=== PATIENT | female | born 1950 | race Caucasian/White ===

== ENCOUNTER → 2019-02-16 | Outpatient (REF) ==
[2019-02-16 13:59] LABS: ALT/SGPT 23 U/L (12-78); BILIRUBIN,TOTAL 0.2 MG/DL (0.2-1.0); BLOOD UREA NITROGEN 11 MG/DL (7-18); CALCIUM LEVEL 9.6 MG/DL (8.8-10.2); CARBON DIOXIDE LEVEL 28 MEQ/L (21-32); CHLORIDE LEVEL 106 MEQ/L (98-107); CREATININE FOR GFR 0.75 MG/DL (0.55-1.30); GLOMERULAR FILTRATION RATE > 60.0 (>45); GLUCOSE, FASTING 97 MG/DL (70-100); POTASSIUM SERUM 4.4 MEQ/L (3.5-5.1); SODIUM LEVEL 141 MEQ/L (136-145); TOTAL PROTEIN 6.2 GM/DL (6.4-8.2)
== END ==
LOC: M LAB REF 05:14
DX: Z00.00 Encounter for general adult medical examination without abnormal findings (principal)

== ENCOUNTER 2019-04-25 14:58 | Inpatient (IN) | payer BC ==
[~2019-04-25] VITALS: Ht 154.9 cm; Wt 64.0 kg
[2019-04-25] MEDS ORDERED: VANC125C3 PO (15:06)
[2019-04-25] MEDS ORDERED: FURO20TA2 PO (15:06)
[2019-04-25] MEDS ORDERED: DONE10TA90 (15:06)
[2019-04-25] MEDS ORDERED: PANT40TA3 PO (15:06)
[2019-04-25] MEDS ORDERED: FLUO40CA PO (15:06)
[2019-04-25] MEDS ORDERED: CLON0.5T8 PO (15:06)
[2019-04-25] MEDS ORDERED: CLOP75TA2 PO (15:06)
[2019-04-25 16:34] LABS: BASO % 0.6 % (0.0-1.0); EOS % 0.5 % (0.0-3.0); HEMATOCRIT 39.9 % (36.0-47.0); HEMOGLOBIN 13.1 g/dl (12.0-15.5); LYMPH # 1.4 10^3/uL (1.5-4.5); LYMPH % 21.6 % (24.0-44.0); MEAN CORPUSCULAR HEMOGLOBIN 29.2 pg (27.0-33.0); MEAN CORPUSCULAR HGB CONC 32.8 g/dl (32.0-36.5); MEAN CORPUSCULAR VOLUME 88.9 fl (80.0-96.0); MONO # 0.6 10^3/uL (0.0-0.8); MONO % 8.4 % (0.0-5.0); NEUTROPHILS # 4.5 10^3/uL (1.8-7.7); NEUTROPHILS % 68.7 % (36.0-66.0); PLATELET COUNT, AUTOMATED 248 10^3/uL (150-450); RED BLOOD COUNT 4.49 10^6/uL (4.00-5.40); WHITE BLOOD COUNT 6.5 10^3/uL (4.0-10.0)
[2019-04-25 17:04] LABS: ALBUMIN 3.5 GM/DL (3.2-5.2); ALT/SGPT 23 U/L (12-78); BILIRUBIN,DIRECT 0.2 MG/DL (0.0-0.2); BILIRUBIN,TOTAL 0.6 MG/DL (0.2-1.0); BLOOD UREA NITROGEN 7 MG/DL (7-18); CALCIUM LEVEL 9.8 MG/DL (8.8-10.2); CARBON DIOXIDE LEVEL 28 MEQ/L (21-32); CHLORIDE LEVEL 104 MEQ/L (98-107); CREATININE FOR GFR 0.82 MG/DL (0.55-1.30); GLOMERULAR FILTRATION RATE > 60.0 (>45); GLUCOSE, FASTING 89 MG/DL (70-100); LIPASE 84 U/L (73-393); POTASSIUM SERUM 3.5 MEQ/L (3.5-5.1); SODIUM LEVEL 141 MEQ/L (136-145)
[2019-04-25] MEDS ORDERED: ONDANSETRON 4MG/2ML VIAL (J2405) As Ordered ONE (17:10)
[2019-04-25] MEDS ORDERED: NS 1,000 ML IV ONE (17:15)
[2019-04-25] MEDS ORDERED: ONDANSETRON 4MG/2ML VIAL (J2405) IV ONE ×2 (17:15→22:30)
[2019-04-25] MEDS ORDERED: ACET1TAB55 PO (17:44)
--- NOTE | 2019-04-25 18:08 | HPEPDOC ---
General Date of Admission Apr 25, 2019 at 17:42 Date of Service: Apr 25, 2019 Chief Complaint The patient is a 69-year-old female Who presented to the emergency room with complaints of diarrhea. History of Present Illness Patient is a 69-year-old female with a PMHx of CAD s/p stent x2 (Hx of NH), HTN, Hx of Pericarditis (03/2018), DLP and history of recurrent C. difficile colitis who presented to the emergency room with diarrhea. Patient has reported that she had an episode of diverticulitis and was placed on Ciprofloxacin and Flagy. Upon starting these antibiotics she began to develop diarrhea. Testing had revealed that this was C. difficile colitis. Patient was placed on vancomycin, but failed to improve. She was subsequently referred to infectious disease and started on Fidaxomycin. Patient failed 2 courses. 2 weeks ago patient was continued to experience diarrhea and was tested for C. difficile colitis at [facility]. . She had subsequently follow-up with her primary care provider 2 days ago and again was noted to have positive C. difficile colitis. . She was started again back on vancomycin. Patient has presented to the emergency room with failure to improve on vancomycin. Patient does report abdominal cramping and burning sensation in the upper portion of her abdomen. She denies any vomiting but does report nausea. Patient denies any discomfort with urination. She denies any chest pain, shortness of breath, cough or palpitations. Patient does report chills but denies any fevers. Patient does report a very poor appetite and has reported a weight loss of 15 pounds over the last 2 weeks. Home Medications Scheduled Clonazepam (Clonazepam) 0.5 Mg Tablet, 0.5 MG PO QHS, (Reported) Clopidogrel Bisulfate (Clopidogrel) 75 Mg Tablet, 75 MG PO DAILY, (Reported) Fluoxetine Hcl (Fluoxetine HCl) 40 Mg Capsule, 40 MG PO DAILY, (Reported) Furosemide (Furosemide) 20 Mg Tablet, 20 MG PO 3XW, (Reported) MON/MON/FRI Pantoprazole Sodium (Pantoprazole Sodium) 40 Mg Tablet.dr, 40 MG PO DAILY, (Reported) Vancomycin Hcl (Vancomycin HCl) 125 Mg Capsule, 125 MG PO QID, (Reported) FOR 10 DAY COURSE, STARTED 04/23 Scheduled PRN Acetaminophen (Acetaminophen) 325 Mg Tablet, 650 MG PO Q4H PRN for PAIN, (Reported) Allergies Coded Allergies: Penicillins (Verified Allergy, Severe, ANAPHYLAXIS, 04/25/19) Iodinated Contrast- Oral and IV Dye (Verified Allergy, Unknown, 04/25/19) Shrimp (Verified Allergy, Unknown, 04/25/19) Past Medical History Medical History CAD s/p stent x2 (Hx of NH), HTN, Hx of Pericarditis (03/2018), DLP and history of recurrent C. difficile colitis Surgical History Right ulnar release Right carpal tunnel release Right hand trigger finger release Family History - Mother and father with history of heart problems Social History - Denies the use of alcohol or illicit drugs; patient quit smoking in 1999 - Denies recent travel or sick contacts - Lives with in [place] - Occupation; homemaker Review of Systems Other systems 10 point review of systems complete, all negative otherwise stated in HPI Vital Signs - Vitals: BP174/83, HR 75, RR 20, Sat 96%RA, Temp 98.4F - General: Lying in bed, No acute distress, Speaking in full sentences, AAOx3 - HEENT: NC, AT, PERRLA, EOMI - CVS: RRR, +S1S2, - Murmurs / rubs / gallops - Lungs: Fair air entry bilaterally, No appreciable wheezing / rales / rhonchi - Abdomen: Soft, Non-distended, epigastric tenderness noted, diffuse lower quadrant tenderness noted - Extremities: No lower extremity edema, No calf tenderness - Neuro: No focal motor or sensory deficit - Skin: No visible rashes Laboratory Data Labs 24H Laboratory Tests 2 04/25/19 16:07: Immature Granulocyte % (Auto) 0.2, White Blood Count 6.5, Red Blood Count 4.49, Hemoglobin 13.1, Hematocrit 39.9, Mean Corpuscular Volume 88.9, Mean Corpuscular Hemoglobin 29.2, Mean Corpuscular Hemoglobin Concent 32.8, Red Cell Distribution Width 14.5, Platelet Count 248, Neutrophils (%) (Auto) 68.7H, Lymphocytes (%) (Auto) 21.6L, Monocytes (%) (Auto) 8.4H, Eosinophils (%) (Auto) 0.5, Basophils (%) (Auto) 0.6, Neutrophils # (Auto) 4.5, Lymphocytes # (Auto) 1.4L, Monocytes # (Auto) 0.6, Eosinophils # (Auto) 0.0, Basophils # (Auto) 0.0, Nucleated Red Blood Cells % (auto) 0.0, Anion Gap 9, Glomerular Filtration Rate > 60.0, Calcium Level 9.8, Aspartate Amino Transf (AST/SGOT) 14, Alanine Aminotransfe rase (ALT/SGPT) 23, Alkaline Phosphatase 63, Total Bilirubin 0.6, Direct Bilirubin 0.2, Total Protein 8.0, Albumin 3.5, Albumin/Globulin Ratio 0.78L, Lipase 84 04/25/19 16:21: Urine Color EDWIN, Urine Appearance TURBIDH, Urine pH 7.0, Urine Specific Beatrice 1.016, Urine Protein NEGATIVE, Urine Glucose (UA) NEGATIVE, Urine Ketones TRACEH, Urine Blood NEGATIVE, Urine Nitrite NEGATIVE, Urine Bilirubin NEGATIVE, Urine Urobilinogen 0.2, Urine Leukocyte Esterase NEGATIVE, Urine WBC (Auto) 3, Urine RBC (Auto) 2, Urine Hyaline Casts (Auto) 5, Urine Bacteria (Auto) NEGATIVE, Urine Squamous Epithelial Cells 1, Urine Amorphous Sediment SMALLH, Urine Mucus (Auto) SMALL, Urine Sperm (Auto) CBC/BMP Laboratory Tests 04/25/19 16:07 Red Blood Count 4.49, Mean Corpuscular Volume 88.9, Mean Corpuscular Hemoglobin 29.2, Mean Corpuscular Hemoglobin Concent 32.8, Red Cell Distribution Width 14.5, Neutrophils (%) (Auto) 68.7 H, Lymphocytes (%) (Auto) 21.6 L, Monocytes (%) (Auto) 8.4 H, Eosinophils (%) (Auto) 0.5, Basophils (%) (Auto) 0.6, Neutrophils # (Auto) 4.5, Lymphocytes # (Auto) 1.4 L, Monocytes # (Auto) 0.6, Eosinophils # (Auto) 0.0, Basophils # (Auto) 0.0 Plan / VTE VTE Prophylaxis Ordered?: Yes Plan Plan Recurrent diarrhea - likely 2/2 C. difficile colitis - Patient has a history of recurrent C. difficile colitis - Has failed multiple outpatient medications; currently on vancomycin and has failed to improve - Patient had a stool study which was positive for C. difficile 2 weeks ago - Will repeat stool analysis - Will discontinue vancomycin and start Dificid - Well continue with symptomatic control with Tylenol and Bentyl - Case is been discussed with gastroenterology, Dr. Hilliard - plan for likely stool transplant CAD s/p stent x2 - Hx of NH - c/w Plavix HTN - BP moderately elevated - c/w Hx of Pericarditis - Last episode was 03/2018 DLP - Currently not on any medications Anxiety - c/w Clonazepam / Fluoxetine GERD - Will start Protonix IV DVT prophylaxis - Will start Heparin MICHELLE MATTA MD Apr 25, 2019 18:07
[2019-04-25] MEDS: D5W/0.45% SODIUM CHLORIDE 1,000 ML IV SCH (21:23)
[2019-04-25 22:15] VITALS: BP 137/69
[2019-04-25] MEDS: ACETAMINOPHEN 325 MG TAB PO PRN (22:38)
[2019-04-25] MEDS: clonazePAM 0.5 MG TAB PO SCH (22:39)
[2019-04-25] MEDS: HEPARIN SOD (PORCINE) 5000 UNITS/ML VIAL SC SCH (22:40)
[2019-04-25] MEDS: FIDAXOMICIN 200 MG TAB (DIFICID) PO SCH (23:13)
[2019-04-26 05:28] LABS: BASO # 0.1 10^3/uL (0.0-0.2); EOS # 0.1 10^3/uL (0.0-0.50); EOS % 1.5 % (0.0-3.0); HEMATOCRIT 35.5 % (36.0-47.0); HEMOGLOBIN 11.4 g/dl (12.0-15.5); LYMPH # 1.5 10^3/uL (1.5-4.5); LYMPH % 31.4 % (24.0-44.0); MEAN CORPUSCULAR HEMOGLOBIN 29.7 pg (27.0-33.0); MEAN CORPUSCULAR HGB CONC 32.1 g/dl (32.0-36.5); MEAN CORPUSCULAR VOLUME 92.4 fl (80.0-96.0); MONO # 0.5 10^3/uL (0.0-0.8); MONO % 9.4 % (0.0-5.0); NEUTROPHILS # 2.7 10^3/uL (1.8-7.7); NEUTROPHILS % 56.3 % (36.0-66.0); PLATELET COUNT, AUTOMATED 210 10^3/uL (150-450); RED BLOOD COUNT 3.84 10^6/uL (4.00-5.40); WHITE BLOOD COUNT 4.8 10^3/uL (4.0-10.0)
[2019-04-26] MEDS: HEPARIN SOD (PORCINE) 5000 UNITS/ML VIAL SC SCH ×3 (05:42→20:38)
[2019-04-26 05:46] LABS: BLOOD UREA NITROGEN 5 MG/DL (7-18); CALCIUM LEVEL 8.8 MG/DL (8.8-10.2); CARBON DIOXIDE LEVEL 26 MEQ/L (21-32); CHLORIDE LEVEL 110 MEQ/L (98-107); CREATININE FOR GFR 0.74 MG/DL (0.55-1.30); GLOMERULAR FILTRATION RATE > 60.0 (>45); GLUCOSE, FASTING 111 MG/DL (70-100); MAGNESIUM LEVEL 2.1 MG/DL (1.8-2.4); POTASSIUM SERUM 3.5 MEQ/L (3.5-5.1); SODIUM LEVEL 143 MEQ/L (136-145)
[2019-04-26 06:00] VITALS: BP 132/71
[2019-04-26] MEDS: PANTOPRAZOLE 40MG INJ (PROTONIX) (C9113) IV SCH (08:17)
[2019-04-26] MEDS: FIDAXOMICIN 200 MG TAB (DIFICID) PO SCH ×2 (08:17→20:37)
[2019-04-26] MEDS: CLOPIDOGREL 75 MG TAB PO SCH (08:17)
[2019-04-26] MEDS: FLUoxetine 20 MG CAP PO SCH (08:17)
[2019-04-26] MEDS: D5W/0.45% SODIUM CHLORIDE 1,000 ML IV SCH ×2 (08:17→18:45)
[2019-04-26] MEDS: ONDANSETRON 4MG/2ML VIAL (J2405) IV PRN ×2 (08:59→20:38)
[2019-04-26] MEDS: DICYCLOMINE 10 MG CAP PO PRN ×2 (12:07→20:37)
[2019-04-26 14:00] VITALS: BP 159/78
--- NOTE | 2019-04-26 14:47 | IPNPDOC ---
Date Seen The patient was seen on 04/26/19. Progress Note SUBJECTIVE: Patient is a 69-year-old female with a past medical history of recurrent diarrhea who presented to the emergency room with complaints of diarrhea. She was seen and examined this morning lying comfortably in the bed does not appear in acute distress. She states that she continues to have watery diarrhea 2 episodes since waking up this morning. She notes that she does not feel comfortable and would like to know if she can have some Bentyl for her abdominal cramps. Continues to be nothing by mouth status and he has yet to be evaluated by Dr. Handley for stool transplant. She has no other complaints at this time. She denies fevers chills. She admits to abdominal cramps, nausea and diarrhea. OBJECTIVE PHYSICAL EXAMINATION: VITAL SIGNS: Please see below. GENERAL: Pleasant 69-year-old female laying comfortably on her left side, appropriate answering questions and in no acute distress. HEENT: Atraumatic normocephalic pupils equal round and reactive extraocular movements are intact, mucous membranes are moist no carotid bruits appreciated CARDIOVASCULAR: Normal S1-S2 sound with a normal S2 splitting with inspiration, Soft 1/6 systolic murmur at the second loudest on the left intercostal space nonradiating RESPIRATORY: Positive bilaterally no audible wheezing, rhonchi, Rales ABDOMINAL: Positive bowel sounds in all 4 quadrants miles tenderness with deep palpation of the lower abdomen. EXTREMITIES: No lower extremity edema NEUROLOGICAL: No focal deficits, Alert and oriented 3. PSYCHOLOGICAL: Appropriate LABORATORY DATA, IMAGING STUDIES, MICROBIOLOGY: Please see below. DVT prophylaxis ordered?:Yes Heparin ASSESSMENT AND PLAN: This is a 69-year-old female Who presented to the emergency room with complaints of diarrhea. PROBLEMS: Recurrent diarrhea - likely 2/2 C. difficile colitis -history of recurrent C. difficile colitis -failed multiple outpatient medications; currently on vancomycin and has failed to improve -stool study 2 weeks prior + for C. difficile -GI panel pending -c/w Dificid and symptomatic control with Tylenol, Bentyl and Zofran -GI, Dr. Hilliard -consulted - plan for stool transplant CAD s/p stent x2 - Hx of [place] - c/w Plavix HTN -Stable -continue to hold home frusemide because the patient continues to have watery area will monitor blood pressure if needed can consider restarting it Hx of Pericarditis - Last episode was 03/2018 DLP - Currently not on any medications Anxiety - c/w Clonazepam & Fluoxetine GERD - c/w Protonix IV DVT prophylaxis - c/w Heparin . VS, I&O, 24H, [facility] Vital Signs/I&O Vital Signs Date Time Temp Pulse Resp B/P (MAP) Pulse Ox O2 Delivery O2 Flow Rate FiO2 04/26/19 06:00 97.0 61 15 132/71 (91) 98 04/25/19 21:46 Room Air I&O- Last 24 Hours up to 6 AM 04/26/19 06:00 Intake Total 850 ml Output Total 300 ml Balance 550 ml Laboratory Data 24H LABS Laboratory Tests 2 04/25/19 16:07: Immature Granulocyte % (Auto) 0.2, White Blood Count 6.5, Red Blood Count 4.49, Hemoglobin 13.1, Hematocrit 39.9, Mean Corpuscular Volume 88.9, Mean Corpuscular Hemoglobin 29.2, Mean Corpuscular Hemoglobin Concent 32.8, Red Cell Distribution Width 14.5, Platelet Count 248, Neutrophils (%) (Auto) 68.7H, Lymphocytes (%) (Auto) 21.6L, Monocytes (%) (Auto) 8.4H, Eosinophils (%) (Auto) 0.5, Basophils (%) (Auto) 0.6, Neutrophils # (Auto) 4.5, Lymphocytes # (Auto) 1.4L, Monocytes # (Auto) 0.6, Eosinophils # (Auto) 0.0, Basophils # (Auto) 0.0, Nucleated Red Blood Cells % (auto) 0.0, Anion Gap 9, Glomerular Filtration Rate > 60.0, Calcium Level 9.8, Aspartate Amino Transf (AST/SGOT) 14, Alanine Aminotransferase (ALT/SGPT) 23, Alkaline Phosphatase 63, Total Bilirubin 0.6, Direct Bilirubin 0.2, Total Protein 8.0, Albumin 3.5, Albumin/Globulin Ratio 0.78L, Lipase 84 04/25/19 16:21: Urine Color EDWIN, Urine Appearance TURBIDH, Urine pH 7.0, Urine Specific Bullock 1.016, Urine Protein NEGATIVE, Urine Glucose (UA) NEGATIVE, Urine Ketones TRACEH, Urine Blood NEGATIVE, Urine Nitrite NEGATIVE, Urine Bilirubin NEGATIVE, Urine Urobilinogen 0.2, Urine Leukocyte Esterase NEGATIVE, Urine WBC (Auto) 3, Urine RBC (Auto) 2, Urine Hyaline Casts (Auto) 5, Urine Bacteria (Auto) NEGATIVE, Urine Squamous Epithelial Cells 1, Urine Amorphous Sediment SMALLH, Urine Mucus (Auto) SMALL, Urine Sperm (Auto) , Lactic Acid Level 1.0 04/26/19 04:49: Immature Granulocyte % (Auto) 0.4, White Blood Count 4.8, Red Blood Count 3.84L, Hemoglobin 11.4L, Hematocrit 35.5L, Mean Corpuscular Volume 92.4, Mean Corpuscular Hemoglobin 29.7, Mean Corpuscular Hemoglobin Concent 32.1, Red Cell Distribution Width 14.6H, Platelet Count 210, Neutrophils (%) (Auto) 56.3, Lymphocytes (%) (Auto) 31.4, Monocytes (%) (Auto) 9.4H, Eosinophils (%) (Auto) 1.5, Basophils (%) (Auto) 1.0, Neutrophils # (Auto) 2.7, Lymphocytes # (Auto) 1.5, Monocytes # (Auto) 0.5, Eosinophils # (Auto) 0.1, Basophils # (Auto) 0.1, Nucleated Red Blood Cells % (auto) 0.0, Anion Gap 7L, Glomerular Filtration Rate > 60.0, Calcium Level 8.8, Blood Urea Nitrogen 5L, Creatinine 0.74, Sodium Level 143, Potassium Level 3.5, Chloride Level 110H, Carbon Dioxide Level 26, Magnesium Level 2.1 CBC/BMP Laboratory Tests 04/25/19 16:07 Red Blood Count 4.49, Mean Corpuscular Volume 88.9, Mean Corpuscular Hemoglobin 29.2, Mean Corpuscular Hemoglobin Concent 32.8, Red Cell Distribution Width 14.5, Neutrophils (%) (Auto) 68.7 H, Lymphocytes (%) (Auto) 21.6 L, Monocytes (%) (Auto) 8.4 H, Eosinophils (%) (Auto) 0.5, Basophils (%) (Auto) 0.6, Neutrophils # (Auto) 4.5, Lymphocytes # (Auto) 1.4 L, Monocytes # (Auto) 0.6, Eosinophils # (Auto) 0.0, Basophils # (Auto) 0.0 04/26/19 04:49 Red Blood Count 3.84 L, Mean Corpuscular Volume 92.4, Mean Corpuscular Hemoglobin 29.7, Mean Corpuscular Hemoglobin Concent 32.1, Red Cell Distribution Width 14.6 H, Neutrophils (%) (Auto) 56.3, Lymphocytes (%) (Auto) 31.4, Monocytes (%) (Auto) 9.4 H, Eosinophils (%) (Auto) 1.5, Basophils (%) (Auto) 1.0, Neutrophils # (Auto) 2.7, Lymphocytes # (Auto) 1.5, Monocytes # (Auto) 0.5, Eosinophils # (Auto) 0.1, Basophils # (Auto) 0.1, Calcium Level 8.8 GME ATTESTATION GME ATTESTATION My faculty preceptor for this patient encounter was physically present during the encounter and was fully available. All aspects of the patient interview, examination, medical decision making process, and medical care plan development were reviewed and approved by the faculty preceptor. The faculty preceptor is aware and concurs with the plan as stated in the body of this note and will attest to such by his/her cosignature. ATTENDING NOTE I, Carmine Alvarez, have independently examined this patient and performed my own physical exam, as well as reviewed the documentation and edited where necessary. I have discussed in detail with the resident / student the findings and plan of treatment as documented by the resident / student and edited their note. I agree with their findings and treatment plan and have edited their documentation. I will continue to follow the patient during this hospital stay. CANDACE MEI DO Apr 26, 2019 14:47 CARMINE ALVAREZ MD Apr 26, 2019 15:00
[2019-04-26] MEDS: clonazePAM 0.5 MG TAB PO SCH (20:37)
[2019-04-26 22:00] VITALS: BP 140/64
[2019-04-27 06:00] VITALS: BP 153/72
[2019-04-27] MEDS: ONDANSETRON 4MG/2ML VIAL (J2405) IV PRN ×2 (06:30→20:51)
[2019-04-27] MEDS: DICYCLOMINE 10 MG CAP PO PRN ×2 (06:30→20:51)
[2019-04-27] MEDS: HEPARIN SOD (PORCINE) 5000 UNITS/ML VIAL SC SCH ×3 (06:30→20:51)
[2019-04-27 06:52] LABS: BASO # 0.1 10^3/uL (0.0-0.2); BASO % 1.1 % (0.0-1.0); EOS # 0.1 10^3/uL (0.0-0.50); EOS % 1.3 % (0.0-3.0); HEMATOCRIT 34.7 % (36.0-47.0); HEMOGLOBIN 11.2 g/dl (12.0-15.5); LYMPH # 1.3 10^3/uL (1.5-4.5); LYMPH % 24.3 % (24.0-44.0); MEAN CORPUSCULAR HEMOGLOBIN 29.5 pg (27.0-33.0); MEAN CORPUSCULAR HGB CONC 32.3 g/dl (32.0-36.5); MEAN CORPUSCULAR VOLUME 91.3 fl (80.0-96.0); MONO # 0.4 10^3/uL (0.0-0.8); MONO % 7.6 % (0.0-5.0); NEUTROPHILS # 3.5 10^3/uL (1.8-7.7); NEUTROPHILS % 65.5 % (36.0-66.0); PLATELET COUNT, AUTOMATED 200 10^3/uL (150-450); WHITE BLOOD COUNT 5.4 10^3/uL (4.0-10.0)
[2019-04-27 07:07] LABS: BLOOD UREA NITROGEN 5 MG/DL (7-18); CALCIUM LEVEL 9.4 MG/DL (8.8-10.2); CARBON DIOXIDE LEVEL 27 MEQ/L (21-32); CHLORIDE LEVEL 109 MEQ/L (98-107); CREATININE FOR GFR 0.68 MG/DL (0.55-1.30); GLOMERULAR FILTRATION RATE > 60.0 (>45); GLUCOSE, FASTING 98 MG/DL (70-100); POTASSIUM SERUM 3.7 MEQ/L (3.5-5.1); SODIUM LEVEL 141 MEQ/L (136-145)
[2019-04-27] MEDS: PANTOPRAZOLE 40MG INJ (PROTONIX) (C9113) IV SCH (08:32)
[2019-04-27] MEDS: CLOPIDOGREL 75 MG TAB PO SCH (08:33)
[2019-04-27] MEDS: FIDAXOMICIN 200 MG TAB (DIFICID) PO SCH ×2 (08:33→20:50)
[2019-04-27] MEDS: FLUoxetine 20 MG CAP PO SCH (08:33)
[2019-04-27] MEDS ORDERED: DIAPER RELIEF PASTE (DESITIN) 60GM TOP SCH (12:45)
--- NOTE | 2019-04-27 12:48 | IPNPDOC ---
Date Seen The patient was seen on 04/27/19. Progress Note SUBJECTIVE: Patient is a 69-year-old female with a past medical history of recurrent diarrhea who presented to the emergency room with complaints of diarrhea. She was seen and examined this morning lying comfortably in the bed does not appear in acute distress. She states that she continues to have watery diarrhea 2 episodes since waking up this morning. She notes her, pain is not currently managed with the Bentyl plicated yesterday and would like to know if there is alternative recommendations. She also would like to have a different cream for her rectal area is very raw from lifting. She is tolerating a diet but she has no appetite at this time and is drinking water when she is thirsty. She has no other complaints at this time. She denies fevers chills, or nausea (managed well with zofran). She admits to abdominal cramps,and diarrhea. OBJECTIVE PHYSICAL EXAMINATION: VITAL SIGNS: Please see below. GENERAL: Pleasant 69-year-old female laying comfortably on her left side, appropriate answering questions and in no acute distress. HEENT: Atraumatic normocephalic pupils equal round and reactive extraocular movements are intact, mucous membranes are moist no carotid bruits appreciated CARDIOVASCULAR: Normal S1-S2 sound with a normal S2 splitting with inspiration, Soft 1/6 systolic murmur at the second loudest on the left intercostal space nonradiating RESPIRATORY: Positive bilaterally no audible wheezing, rhonchi, Rales ABDOMINAL: Positive bowel sounds in all 4 quadrants miles tenderness with deep palpation of the upper and lower abdomen. EXTREMITIES: No lower extremity edema NEUROLOGICAL: No focal deficits, Alert and oriented 3. PSYCHOLOGICAL: Appropriate LABORATORY DATA, IMAGING STUDIES, MICROBIOLOGY: Please see below. DVT prophylaxis ordered?:Yes Heparin ASSESSMENT AND PLAN: This is a 69-year-old female Who presented to the emergency room with complaints of diarrhea. PROBLEMS: Recurrent diarrhea - likely 2/2 C. difficile colitis -history of recurrent C. difficile colitis -failed multiple outpatient medications -GI panel +C. Diff A/B -c/w Dificid and symptomatic control with Tylenol, Ultrasm PRN, Bentyl and Zofran -Miguel top to apply on buttocks -GI, Dr. Hilliard -consulted - plan for stool transplant on Monday CAD s/p stent x2 - Hx of [place] - c/w Plavix HTN -Stable -continue hold home frusemide because the patient continues to have watery stool, will monitor blood pressure if needed can consider restarting it Hx of Pericarditis - Last episode was 03/2018 DLP - Currently not on any medications Anxiety - c/w Clonazepam & Fluoxetine GERD - c/w Protonix IV DVT prophylaxis - c/w Heparin VS, I&O, 24H, Fishbone Vital Signs/I&O Vital Signs Date Time Temp Pulse Resp B/P (MAP) Pulse Ox O2 Delivery O2 Flow Rate FiO2 04/27/19 06:00 97.8 61 16 153/72 (99) 96 04/25/19 21:46 Room Air I&O- Last 24 Hours up to 6 AM 04/27/19 05:59 Intake Total 1820 ml Output Total 700 ml Balance 1120 ml Laboratory Data 24H LABS Laboratory Tests 2 04/27/19 06:29: Immature Granulocyte % (Auto) 0.2, White Blood Count 5.4, Red Blood Count 3.80L, Hemoglobin 11.2L, Hematocrit 34.7L, Mean Corpuscular Volume 91.3, Mean Corpuscular Hemoglobin 29.5, Mean Corpuscular Hemoglobin Concent 32.3, Red Cell Distribution Width 14.5, Platelet Count 200, Neutrophils (%) (Auto) 65.5, Lymphocytes (%) (Auto) 24.3, Monocytes (%) (Auto) 7.6H, Eosinophils (%) (Auto) 1.3, Basophils (%) (Auto) 1.1H, Neutrophils # (Auto) 3.5, Lymphocytes # (Auto) 1.3L, Monocytes # (Auto) 0.4, Eosinophils # (Auto) 0.1, Basophils # (Auto) 0.1, Nucleated Red Blood Cells % (auto) 0.0, Anion Gap 5L, Glomerular Filtration Rate > 60.0, Blood Urea Nitrogen 5L, Creatinine 0.68, Sodium Level 141, Potassium Level 3.7, Chloride Level 109H, Carbon Dioxide Level 27, Calcium Level 9.4, Magnesium Level 2.0 CBC/BMP Laboratory Tests 04/27/19 06:29 Red Blood Count 3.80 L, Mean Corpuscular Volume 91.3, Mean Corpuscular Hemo globin 29.5, Mean Corpuscular Hemoglobin Concent 32.3, Red Cell Distribution Width 14.5, Neutrophils (%) (Auto) 65.5, Lymphocytes (%) (Auto) 24.3, Monocytes (%) (Auto) 7.6 H, Eosinophils (%) (Auto) 1.3, Basophils (%) (Auto) 1.1 H, Neutrophils # (Auto) 3.5, Lymphocytes # (Auto) 1.3 L, Monocytes # (Auto) 0.4, Eosinophils # (Auto) 0.1, Basophils # (Auto) 0.1, Calcium Level 9.4 Microbiology Microbiology 04/26/19 Gastrointestinal Tract Panel (PCR) - Final, Complete Clostridium Difficile A/B GME ATTESTATION GME ATTESTATION My faculty preceptor for this patient encounter was physically present during the encounter and was fully available. All aspects of the patient interview, examination, medical decision making process, and medical care plan development were reviewed and approved by the faculty preceptor. The faculty preceptor is aware and concurs with the plan as stated in the body of this note and will at test to such by his/her cosignature. ATTENDING NOTE I, Carmine Matta, have independently examined this patient and performed my own physical exam, as well as reviewed the documentation and edited where necessary. I have discussed in detail with the resident / student the findings and plan of treatment as documented by the resident / student and edited their note. I agree with their findings and treatment plan and have edited their documentation. I will continue to follow the patient during this hospital stay. CANDACE MEI DO Apr 27, 2019 12:48 CARMINE MATTA MD Apr 27, 2019 17:09
[2019-04-27 14:00] VITALS: BP 155/75
[2019-04-27] MEDS: traMADol 50 MG TAB PO PRN ×2 (14:05→18:33)
[2019-04-27] MEDS: clonazePAM 0.5 MG TAB PO SCH (20:50)
[2019-04-27 22:00] VITALS: BP 142/60
[2019-04-27] MEDS: ACETAMINOPHEN 325 MG TAB PO PRN (23:58)
[2019-04-28] MEDS: HEPARIN SOD (PORCINE) 5000 UNITS/ML VIAL SC SCH ×3 (05:56→20:57)
[2019-04-28] MEDS: ONDANSETRON 4MG/2ML VIAL (J2405) IV PRN ×2 (05:56→18:44)
[2019-04-28] MEDS: DICYCLOMINE 10 MG CAP PO PRN ×2 (05:56→21:02)
[2019-04-28 06:00] VITALS: BP 150/72
[2019-04-28 06:37] LABS: BASO % 0.4 % (0.0-1.0); EOS # 0.1 10^3/uL (0.0-0.50); EOS % 1.7 % (0.0-3.0); HEMATOCRIT 34.3 % (36.0-47.0); HEMOGLOBIN 11.1 g/dl (12.0-15.5); LYMPH # 1.4 10^3/uL (1.5-4.5); LYMPH % 30.4 % (24.0-44.0); MEAN CORPUSCULAR HEMOGLOBIN 29.9 pg (27.0-33.0); MEAN CORPUSCULAR HGB CONC 32.4 g/dl (32.0-36.5); MEAN CORPUSCULAR VOLUME 92.5 fl (80.0-96.0); MONO # 0.4 10^3/uL (0.0-0.8); MONO % 8.3 % (0.0-5.0); NEUTROPHILS # 2.8 10^3/uL (1.8-7.7); PLATELET COUNT, AUTOMATED 174 10^3/uL (150-450); RED BLOOD COUNT 3.71 10^6/uL (4.00-5.40); WHITE BLOOD COUNT 4.7 10^3/uL (4.0-10.0)
[2019-04-28 07:08] LABS: BLOOD UREA NITROGEN 6 MG/DL (7-18); CALCIUM LEVEL 9.3 MG/DL (8.8-10.2); CARBON DIOXIDE LEVEL 28 MEQ/L (21-32); CHLORIDE LEVEL 108 MEQ/L (98-107); CREATININE FOR GFR 0.68 MG/DL (0.55-1.30); GLOMERULAR FILTRATION RATE > 60.0 (>45); GLUCOSE, FASTING 95 MG/DL (70-100); POTASSIUM SERUM 3.6 MEQ/L (3.5-5.1); SODIUM LEVEL 141 MEQ/L (136-145)
[2019-04-28] MEDS: PANTOPRAZOLE 40MG INJ (PROTONIX) (C9113) IV SCH (08:21)
[2019-04-28] MEDS: FLUoxetine 20 MG CAP PO SCH (08:21)
[2019-04-28] MEDS: CLOPIDOGREL 75 MG TAB PO SCH (08:21)
[2019-04-28] MEDS: FIDAXOMICIN 200 MG TAB (DIFICID) PO SCH ×2 (08:21→20:56)
[2019-04-28 14:00] VITALS: BP 160/69
--- NOTE | 2019-04-28 18:00 | IPNPDOC ---
Text Note Date of Service The patient was seen on 04/28/19. NOTE Subjective: Patient was seen and examined at the bedside. Currently, patient reports that she is still experiencing diarrhea. She denies any nausea or vomiting, but she does report some abdominal discomfort is unrelieved with tramadol. Patient denies chest pain, shortness of breath or palpitations. Objective: Vitals (See below) General: Lying in bed, no acute distress, comfortable, AAOx3 HEENT: NC, AT CVS: RRR, +S1S2 Lungs: Fair air entry b/l, -w/r/r Abdomen: Soft, ND, mild diffuse tenderness Extremities: - Edema, - Calf tenderness Assessment and plan: Recurrent diarrhea - likely 2/2 C. difficile colitis - Patient has a history of recurrent C. difficile colitis - Has failed multiple outpatient medications; currently on vancomycin and has failed to improve - Patient had a stool study which was positive for C. difficile 2 weeks ago - Stool study consistent with C. diff - c/w Dificid - c/w symptomatic control with Tylenol, Bentyl, Percocet - Gastroenterology on consult, Dr. Hilliard; patient is scheduled for a stool transplant on Monday04/30/19 CAD s/p stent x2 - Hx of [place] - c/w Plavix HTN - BP moderately elevated - Currently not on any medications Hx of Pericarditis - Last episode was 03/2018 DLP - Currently not on any medications Anxiety - c/w Clonazepam / Fluoxetine GERD - c/w Protonix IV DVT prophylaxis - c/w Heparin VS,Fishbone, I+O VS, Fishbone, I+O Laboratory Tests 04/28/19 05:48 Red Blood Count 3.71 L, Mean Corpuscular Volume 92.5, Mean Corpuscular Hemoglobin 29.9, Mean Corpuscular Hemoglobin Concent 32.4, Red Cell Distribution Width 14.6 H, Neutrophils (%) (Auto) 59.0, Lymphocytes (%) (Auto) 30.4, Monocytes (%) (Auto) 8.3 H, Eosinophils (%) (Auto) 1.7, Basophils (%) (Auto) 0.4, Neutrophils # (Auto) 2.8, Lymphocytes # (Auto) 1.4 L, Monocytes # (Auto) 0.4, Eosinophils # (Auto) 0.1, Basophils # (Auto) 0.0, Calcium Level 9.3 Vital Signs Date Time Temp Pulse Resp B/P (MAP) Pulse Ox O2 Delivery O2 Flow Rate FiO2 04/28/19 14:00 98.3 61 17 160/69 (99) 96 04/25/19 21:46 Room Air I&O- Last 24 Hours up to 6 AM 04/28/19 06:00 Intake Total 790 ml Output Total 150 ml Balance 640 ml MICHELLE MATTA MD Apr 28, 2019 18:00
[2019-04-28] MEDS: PERCOCET 5MG/325MG TAB PO PRN (18:45)
[2019-04-28] MEDS: clonazePAM 0.5 MG TAB PO SCH (20:56)
[2019-04-28 22:00] VITALS: BP 155/69
[2019-04-29 05:19] LABS: BASO % 0.8 % (0.0-1.0); EOS # 0.1 10^3/uL (0.0-0.50); EOS % 1.6 % (0.0-3.0); HEMATOCRIT 33.5 % (36.0-47.0); HEMOGLOBIN 10.8 g/dl (12.0-15.5); LYMPH # 2.1 10^3/uL (1.5-4.5); LYMPH % 41.7 % (24.0-44.0); MEAN CORPUSCULAR HEMOGLOBIN 29.1 pg (27.0-33.0); MEAN CORPUSCULAR HGB CONC 32.2 g/dl (32.0-36.5); MEAN CORPUSCULAR VOLUME 90.3 fl (80.0-96.0); MONO # 0.4 10^3/uL (0.0-0.8); MONO % 8.7 % (0.0-5.0); NEUTROPHILS # 2.4 10^3/uL (1.8-7.7); PLATELET COUNT, AUTOMATED 190 10^3/uL (150-450); RED BLOOD COUNT 3.71 10^6/uL (4.00-5.40)
[2019-04-29] MEDS: PERCOCET 5MG/325MG TAB PO PRN ×3 (05:27→21:35)
[2019-04-29] MEDS: ONDANSETRON 4MG/2ML VIAL (J2405) IV PRN ×3 (05:27→21:35)
[2019-04-29] MEDS: HEPARIN SOD (PORCINE) 5000 UNITS/ML VIAL SC SCH ×3 (05:27→21:35)
[2019-04-29 05:32] LABS: BLOOD UREA NITROGEN 8 MG/DL (7-18); CALCIUM LEVEL 9.7 MG/DL (8.8-10.2); CARBON DIOXIDE LEVEL 28 MEQ/L (21-32); CHLORIDE LEVEL 108 MEQ/L (98-107); CREATININE FOR GFR 0.63 MG/DL (0.55-1.30); GLOMERULAR FILTRATION RATE > 60.0 (>45); GLUCOSE, FASTING 92 MG/DL (70-100); MAGNESIUM LEVEL 1.9 MG/DL (1.8-2.4); POTASSIUM SERUM 3.6 MEQ/L (3.5-5.1); SODIUM LEVEL 141 MEQ/L (136-145)
[2019-04-29 06:00] VITALS: BP 154/65
[2019-04-29] MEDS: PANTOPRAZOLE 40MG INJ (PROTONIX) (C9113) IV SCH (08:43)
[2019-04-29] MEDS: DICYCLOMINE 10 MG CAP PO PRN (08:43)
[2019-04-29] MEDS: CLOPIDOGREL 75 MG TAB PO SCH (08:43)
[2019-04-29] MEDS: FIDAXOMICIN 200 MG TAB (DIFICID) PO SCH (08:43)
[2019-04-29] MEDS: FLUoxetine 20 MG CAP PO SCH (08:43)
--- NOTE | 2019-04-29 11:05 | IPNPDOC ---
Date Seen The patient was seen on 04/29/19. Progress Note SUBJECTIVE: Patient is a 69-year-old female with a past medical history of recurrent diarrhea who presented to the emergency room with complaints of diarrhea. She was seen and examined this morning lying comfortably in the bed does not appear in acute distress. She states that she continues to have watery diarrhea but her abdominal pain has gotten better since starting the perocet. She is having her stool transplant tomorrow and she has no complaints this morning. OBJECTIVE PHYSICAL EXAMINATION: VITAL SIGNS: Please see below. GENERAL: Pleasant 69-year-old female laying comfortably on her left side, appropriate answering questions and in no acute distress. HEENT: Atraumatic normocephalic pupils equal round and reactive extraocular movements are intact, mucous membranes are moist no carotid bruits appreciated CARDIOVASCULAR: Normal S1-S2 sound with a normal S2 splitting with inspiration, Soft 1/6 systolic murmur at the second loudest on the left intercostal space nonradiating RESPIRATORY: Positive bilaterally no audible wheezing, rhonchi, Rales ABDOMINAL: Positive bowel sounds in all 4 quadrants miles tenderness with deep palpation of the upper and lower abdomen (improving) EXTREMITIES: No lower extremity edema NEUROLOGICAL: No focal deficits, Alert and oriented 3. PSYCHOLOGICAL: Appropriate LABORATORY DATA, IMAGING STUDIES, MICROBIOLOGY: Please see below. DVT prophylaxis ordered?:Yes Heparin ASSESSMENT AND PLAN: This is a 69-year-old female Who presented to the emergency room with complaints of diarrhea. PROBLEMS: Recurrent diarrhea - likely 2/2 C. difficile colitis -history of recurrent C. difficile colitis -failed multiple outpatient medications -GI panel +C. Diff A/B -stop Dificid -c/w symptomatic control with Tylenol, Percocet PRN, Bentyl and Zofran -Miguel top to apply on buttocks -GI, Dr. Hilliard -consulted - plan for stool transplant on 04/29/19 CAD s/p stent x2 - Hx of [place] - c/w Plavix HTN -Stable -continue to hold home frusemide because the patient continues to have watery stool, will monitor blood pressure if needed can consider restarting it Hx of Pericarditis - Last episode was 03/2018 DLP - Currently not on any medications Anxiety - c/w Clonazepam & Fluoxetine GERD - c/w Protonix IV DVT prophylaxis - c/w Heparin VS, I&O, 24H, Fishbone Vital Signs/I&O Vital Signs Date Time Temp Pulse Resp B/P (MAP) Pulse Ox O2 Delivery O2 Flow Rate FiO2 04/29/19 06:00 97.7 55 18 154/65 (94) 97 04/25/19 21:46 Room Air I&O- Last 24 Hours up to 6 AM 04/29/19 06:00 Intake Total 1620 ml Output Total 600 ml Balance 1020 ml Laboratory Data 24H LABS Laboratory Tests 2 04/29/19 04:36: Immature Granulocyte % (Auto) 0.2, White Blood Count 5.0, Red Blood Count 3.71L, Hemoglobin 10.8L, Hematocrit 33.5L, Mean Corpuscular Volume 90.3, Mean Corpuscular Hemoglobin 29.1, Mean Corpuscular Hemoglobin Concent 32.2, Red Cell Distribution Width 14.5, Platelet Count 190, Neutrophils (%) (Auto) 47.0, Lymphocytes (%) (Auto) 41.7, Monocytes (%) (Auto) 8.7H, Eosinophils (%) (Auto) 1.6, Basophils (%) (Auto) 0.8, Neutrophils # (Auto) 2.4, Lymphocytes # (Auto) 2.1, Monocytes # (Auto) 0.4, Eosinophils # (Auto) 0.1, Basophils # (Auto) 0.0, Nucleated Red Blood Cells % (auto) 0.0, Anion Gap 5L, Glomerular Filtration Rate > 60.0, Blood Urea Nitrogen 8, Creatinine 0.63, Sodium Level 141, Potassium Level 3.6, Chloride Level 108H, Carbon Dioxide Level 28, Calcium Level 9.7, Magnesium Level 1.9 CBC/BMP Laboratory Tests 04/29/19 04:36 Red Blood Count 3.71 L, Mean Corpuscular Volume 90.3, Mean Corpuscular Hemoglobin 29.1, Mean Corpuscular Hemoglobin Concent 32.2, Red Cell Distribution Width 14.5, Neutrophils (%) (Auto) 47.0, Lymphocytes (%) (Auto) 41.7, Monocytes (%) (Auto) 8.7 H, Eosinophils (%) (Auto) 1.6, Basophils (%) (Auto) 0.8, Neutroph ils # (Auto) 2.4, Lymphocytes # (Auto) 2.1, Monocytes # (Auto) 0.4, Eosinophils # (Auto) 0.1, Basophils # (Auto) 0.0, Calcium Level 9.7 Microbiology Microbiology 04/26/19 Gastrointestinal Tract Panel (PCR) - Final, Complete Clostridium Difficile A/B GME ATTESTATION GME ATTESTATION My faculty preceptor for this patient encounter was physically present during the encounter and was fully available. All aspects of the patient interview, examination, medical decision making process, and medical care plan development were reviewed and approved by the faculty preceptor. The faculty preceptor is aware and concurs with the plan as stated in the body of this note and will attest to such by his/her cosignature. ATTENDING NOTE I, Carmine Matta, have independently examined this patient and performed my own physical exam, as well as reviewed the documentation and edited where necessary. I have discussed in detail with the resident / student the findings and plan of treatment as documented by the resident / student and edited their note. I agree with their findings and treatment plan and have edited their documentation. I will continue to follow the patient during this hospital stay. CANDACE MEI DO Apr 29, 2019 11:05 CARMINE MATTA MD Apr 29, 2019 17:11
[2019-04-29 14:00] VITALS: BP 154/64
[2019-04-29] MEDS: clonazePAM 0.5 MG TAB PO SCH (21:35)
[2019-04-29 22:00] VITALS: BP 158/64
[2019-04-30] VITALS (8 sets, daily range): BP systolic 138–168; BP diastolic 62–80
[2019-04-30] MEDS: HEPARIN SOD (PORCINE) 5000 UNITS/ML VIAL SC SCH ×3 (03:26→21:59)
[2019-04-30 05:56] LABS: BASO % 0.7 % (0.0-1.0); EOS # 0.1 10^3/uL (0.0-0.50); EOS % 2.6 % (0.0-3.0); HEMATOCRIT 37.1 % (36.0-47.0); HEMOGLOBIN 11.8 g/dl (12.0-15.5); LYMPH # 1.8 10^3/uL (1.5-4.5); LYMPH % 41.9 % (24.0-44.0); MEAN CORPUSCULAR HEMOGLOBIN 29.4 pg (27.0-33.0); MEAN CORPUSCULAR HGB CONC 31.8 g/dl (32.0-36.5); MEAN CORPUSCULAR VOLUME 92.3 fl (80.0-96.0); MONO # 0.3 10^3/uL (0.0-0.8); MONO % 7.8 % (0.0-5.0); NEUTROPHILS % 46.8 % (36.0-66.0); PLATELET COUNT, AUTOMATED 188 10^3/uL (150-450); RED BLOOD COUNT 4.02 10^6/uL (4.00-5.40); WHITE BLOOD COUNT 4.2 10^3/uL (4.0-10.0)
[2019-04-30 06:14] LABS: BLOOD UREA NITROGEN 9 MG/DL (7-18); CALCIUM LEVEL 9.7 MG/DL (8.8-10.2); CARBON DIOXIDE LEVEL 30 MEQ/L (21-32); CHLORIDE LEVEL 105 MEQ/L (98-107); CREATININE FOR GFR 0.68 MG/DL (0.55-1.30); GLOMERULAR FILTRATION RATE > 60.0 (>45); GLUCOSE, FASTING 90 MG/DL (70-100); POTASSIUM SERUM 3.4 MEQ/L (3.5-5.1); SODIUM LEVEL 140 MEQ/L (136-145)
[2019-04-30] MEDS: ONDANSETRON 4MG/2ML VIAL (J2405) IV PRN ×3 (08:37→22:50)
[2019-04-30] MEDS: PANTOPRAZOLE 40MG INJ (PROTONIX) (C9113) IV SCH (08:37)
[2019-04-30] MEDS: FLUoxetine 20 MG CAP PO SCH (08:38)
[2019-04-30] MEDS: CLOPIDOGREL 75 MG TAB PO SCH (08:38)
[2019-04-30] MEDS ORDERED: FECAL MICROBIOTA PREPARATION 30 ML BTL (J3590) XX ONE (12:00)
[2019-04-30] MEDS ORDERED: PROPOFOL 500 MG/50 ML VIAL As Ordered ONE (12:22)
[2019-04-30] MEDS ORDERED: LIDOCAINE 2% INJ 100 MG/5 ML SDV (FOR ANES.) As Ordered ONE (12:26)
[2019-04-30] MEDS: LR 1,000 ML IV SCH ×2 (14:44→15:00)
--- NOTE | 2019-04-30 14:47 | IPNPDOC ---
Date Seen The patient was seen on 04/30/19. Progress Note SUBJECTIVE: Patient is a 69-year-old female with a past medical history of recurrent diarrhea who presented to the emergency room with complaints of diarrhea. She was seen and examined this morning lying comfortably in the bed does not appear in acute distress. States her abdominal pain is a little more consistent today for she is nothing by mouth for her stool transplant later this afternoon. She continues to have diarrhea but noticed that she is able to make it to the bathroom now instead of having accidents on her bed. She is a lot nervous about the stool transplant and she hopes that'll work for she is uncomfortable with CURRENT diarrhea. She has no other complaints at this time. Her potassium was slightly low at 3.4 this morning and she will get her potassium chloride liquid supplementation later this evening after stool transplant. She denies fevers, chills, nausea, vomiting. She does admit to abdominal pain and diarrhea. OBJECTIVE PHYSICAL EXAMINATION: VITAL SIGNS: Please see below. GENERAL: Pleasant 69-year-old female laying comfortably on her left side, appropriate answering questions and in no acute distress. HEENT: Atraumatic normocephalic pupils equal round and reactive extraocular movements are intact, mucous membranes are moist no carotid bruits appreciated CARDIOVASCULAR: Normal S1-S2 sound with a normal S2 splitting with inspiration, Soft 1/6 systolic murmur at the second loudest on the left intercostal space nonradiating RESPIRATORY: Positive bilaterally no audible wheezing, rhonchi, Rales ABDOMINAL: Positive bowel sounds in all 4 quadrants miles tenderness with deep palpation of the upper and lower abdomen EXTREMITIES: No lower extremity edema NEUROLOGICAL: No focal deficits, Alert and oriented 3. PSYCHOLOGICAL: Appropriate LABORATORY DATA, IMAGING STUDIES, MICROBIOLOGY: Please see below. DVT prophylaxis ordered?:Yes Heparin ASSESSMENT AND PLAN: This is a 69-year-old female Who presented to the emergency room with complaints of diarrhea. PROBLEMS: Recurrent diarrhea - likely 2/2 C. difficile colitis -history of recurrent C. difficile colitis -failed multiple outpatient medications -GI panel +C. Diff A/B -c/w symptomatic control with Tylenol, Percocet PRN, Bentyl and Zofran -[place] top to apply on buttocks -GI, Dr. Hilliard -consulted - plan for stool transplant this afternoon CAD s/p stent x2 - Hx of [place] - c/w Plavix HTN -Stable -continue to hold home frusemide because the patient continues to have watery stool, will monitor blood pressure if needed can consider restarting later this evening or tomorrow morning Hx of Pericarditis - Last episode was 03/2018 DLP - Currently not on any medications Anxiety - c/w Clonazepam & Fluoxetine GERD - c/w Protonix IV DVT prophylaxis - c/w Heparin I saw and evaluated the patient. I agree with the findings and plan of care as documented in the above note VS, I&O, 24H, Fishbone Vital Signs/I&O Vital Signs Date Time Temp Pulse Resp B/P (MAP) Pulse Ox O2 Delivery O2 Flow Rate FiO2 04/30/19 06:00 97.9 65 16 138/62 (87) 97 04/25/19 21:46 Room Air I&O- Last 24 Hours up to 6 AM 04/30/19 06:00 Intake Total 720 ml Output Total 440 ml Balance 280 ml Laboratory Data 24H LABS Laboratory Tests 2 04/30/19 05:23: Immature Granulocyte % (Auto) 0.2, White Blood Count 4.2, Red Blood Count 4.02, Hemoglobin 11.8L, Hematocrit 37.1, Mean Corpuscular Volume 92.3, Mean Corpuscular Hemoglobin 29.4, Mean Corpuscular Hemoglobin Concent 31.8L, Red Cell Distribution Width 14.6H, Platelet Count 188, Neutrophils (%) (Auto) 46.8, Lymphocytes (%) (Auto) 41.9, Monocytes (%) (Auto) 7.8H, Eosinophils (%) (Auto) 2.6, Basophils (%) (Auto) 0.7, Neutrophils # (Auto) 2.0, Lymphocytes # (Auto) 1.8, Monocytes # (Auto) 0.3, Eosinophils # (Auto) 0.1, Basophils # (Auto) 0.0, Nucleated Red Blood Cells % (auto) 0.0, Anion Gap 5L, Glomerular Filtration Rate > 60.0, Blood Urea Nitrogen 9, Creatinine 0.68, Sodium Level 140, Potassium Level 3.4L, Chloride Level 105, Carbon Dioxide Level 30, Calcium Level 9.7, Magnesium Level 2.0 CBC/BMP Laboratory Tests 04/30/19 05:23 Red Blood Count 4.02, Mean Corpuscular Volume 92.3, Mean Corpuscular Hemoglobin 29.4, Mean Corpuscular Hemoglobin Concent 31.8 L, Red Cell Distribution Width 14.6 H, Neutrophils (%) (Auto) 46.8, Lymphocytes (%) (Auto) 41.9, Monocytes (%) (Auto) 7.8 H, Eosinophils (%) (Auto) 2.6, Basophils (%) (Auto) 0.7, Neutrophils # (Auto) 2.0, Lymphocytes # (Auto) 1.8, Monocytes # (Auto) 0.3, Eosinophils # (Auto) 0.1, Basophils # (Auto) 0.0, Calcium Level 9.7 Microbiology Microbiology 04/26/19 Gastrointestinal Tract Panel (PCR) - Final, Complete Clostridium Difficile A/B CANDACE MEI DO Apr 30, 2019 14:47 BISHOP HA MD May 05, 2019 14:45
[2019-04-30] MEDS ORDERED: ONDANSETRON 4MG/2ML VIAL (J2405) IV PRN (15:00)
[2019-04-30] MEDS ORDERED: ONDANSETRON 4MG/2ML VIAL (J2405) As Ordered ONE (15:21)
[2019-04-30] MEDS ORDERED: POTASSIUM CHLORIDE 10% LIQ 20 MEQ/15 ML UDC PO ONE (17:00)
[2019-04-30] MEDS: PERCOCET 5MG/325MG TAB PO PRN (18:22)
[2019-04-30] MEDS: DICYCLOMINE 10 MG CAP PO PRN (18:22)
[2019-04-30] MEDS: clonazePAM 0.5 MG TAB PO SCH (21:59)
[2019-04-30] MEDS: ACETAMINOPHEN 325 MG TAB PO PRN (22:50)
[2019-05-01] MEDS: PERCOCET 5MG/325MG TAB PO PRN ×3 (00:35→14:26)
[2019-05-01 06:00] VITALS: BP 140/67
[2019-05-01 06:28] LABS: BASO % 0.8 % (0.0-1.0); EOS # 0.1 10^3/uL (0.0-0.50); EOS % 2.1 % (0.0-3.0); HEMATOCRIT 38.1 % (36.0-47.0); HEMOGLOBIN 12.2 g/dl (12.0-15.5); LYMPH # 1.9 10^3/uL (1.5-4.5); LYMPH % 39.6 % (24.0-44.0); MEAN CORPUSCULAR HEMOGLOBIN 29.8 pg (27.0-33.0); MEAN CORPUSCULAR VOLUME 92.9 fl (80.0-96.0); MONO # 0.5 10^3/uL (0.0-0.8); MONO % 10.3 % (0.0-5.0); NEUTROPHILS # 2.3 10^3/uL (1.8-7.7); PLATELET COUNT, AUTOMATED 214 10^3/uL (150-450); WHITE BLOOD COUNT 4.9 10^3/uL (4.0-10.0)
[2019-05-01] MEDS: HEPARIN SOD (PORCINE) 5000 UNITS/ML VIAL SC SCH ×3 (06:39→22:04)
[2019-05-01 06:55] LABS: BLOOD UREA NITROGEN 9 MG/DL (7-18); CARBON DIOXIDE LEVEL 29 MEQ/L (21-32); CHLORIDE LEVEL 106 MEQ/L (98-107); CREATININE FOR GFR 0.74 MG/DL (0.55-1.30); GLOMERULAR FILTRATION RATE > 60.0 (>45); GLUCOSE, FASTING 95 MG/DL (70-100); MAGNESIUM LEVEL 2.2 MG/DL (1.8-2.4); POTASSIUM SERUM 4.2 MEQ/L (3.5-5.1); SODIUM LEVEL 140 MEQ/L (136-145)
[2019-05-01 08:00] VITALS: BP 161/73
--- NOTE | 2019-05-01 08:26 | ROOR ---
THIS EXAM WAS SENT IN ERROR
--- NOTE | 2019-05-01 08:26 | ROOR ---
Patient Name: Faith Hernandez Procedure Date: 04/30/2019 11:49 AM Date of : 1950 Age: 69 Room: Main OR Gender: Female Note Status: Held Procedure: Upper GI endoscopy Indications: Heartburn Providers: Og STOVER MD Referring MD: 2. Inpatient 2. Inpatient, EILEEN MEZA DO Requesting Provider: Medicines: Monitored Anesthesia Care Complications: No immediate complications. Procedure: Pre-Anesthesia Assessment: - The heart rate, respiratory rate, oxygen saturations, blood pressure, adequacy of pulmonary ventilation, and response to care were monitored throughout the procedure. The Endoscope was introduced through the mouth, and advanced to the third part of duodenum. The upper GI endoscopy was accomplished without difficulty. The patient tolerated the procedure well. Findings: The esophagus was normal. The stomach was normal. The examined duodenum was normal. Successful Stool Transplantation performed. Impression: - Normal esophagus. - Normal stomach. - Normal examined duodenum. - Successful Stool Transplantation performed into 3rd portion duodenum. - No specimens collected. Recommendation: - I suspect this pt has obstructive/restrictive symptoms of diarrhea likely related to "chronic diverticulitis"/Myomatous colon wall changes. The C diff may well be incidental/colonisation. Colonoscopy is recommended to rule out other causes such as malignancy. She will follow up with her surgeon to complete this testing. - Observe patient's clinical course. - Return to referring physician as previously scheduled. Held Og STOVER MD Number of Addenda: 0 Note Initiated On: 04/30/2019 11:49 AM Estimated Blood Loss: Estimated blood loss: none.
--- NOTE | 2019-05-01 08:27 | ROOR ---
Patient Name: Faith Hernandez Procedure Date: 04/30/2019 2:49 PM Date of : 1950 Age: 69 Room: Main OR Gender: Female Note Status: Admissions Manager Override Procedure: Upper GI endoscopy Indications: Heartburn, (diarrhea, abdominal pain, chronic diverticulitis suspected, incidental C difficile supected. Possible c diff colitis vs colonisation) Providers: Og HILLIARD MD Referring MD: 2. Inpatient 2. Inpatient, EILEEN MEZA DO Requesting Provider: Medicines: Monitored Anesthesia Care Complications: No immediate complications. Procedure: Pre-Anesthesia Assessment: - The heart rate, respiratory rate, oxygen saturations, blood pressure, adequacy of pulmonary ventilation, and response to care were monitored throughout the procedure. The Endoscope was introduced through the mouth, and advanced to the third part of duodenum. The upper GI endoscopy was accomplished without difficulty. The patient tolerated the procedure well. Findings: The esophagus was normal. The stomach was normal. The examined duodenum was normal. Successful Stool Transplantation performed. Impression: - Normal esophagus. - Normal stomach. - Normal examined duodenum. - Successful Stool Transplantation performed into the 3rd portion of the duodenum. - No specimens collected. Recommendation: - I suspect this pt has obstructive/restrictive symptoms of diarrhea related to "chronic diverticulitis"/Myomatous changes to her colon wall related to chronic diverticulitis. Pt should follow up with her surgeon to complete evals as planned to rule out other causes. For "chronic diverticulitis" would hold off on broad spectrum antibiotic therapy and consider surgical resection. - Return to referring physician at the next available appointment. - Stop Dificid - Stop PPI - Avoid unnecessary courses of antibiotics for "chronic diverticulitis" - I will sign off at this time. Pt is to follow up with her PCP and her surgeon as planned. Og Hilliard MD Og HILLIARD MD 04/30/2019 4:08:53 PM Electronically signed by Og HILLIARD MD Number of Addenda: 0 Note Initiated On: 04/30/2019 2:49 PM Estimated Blood Loss: Estimated blood loss: none.
[2019-05-01] MEDS: CLOPIDOGREL 75 MG TAB PO SCH (08:48)
[2019-05-01] MEDS: FLUoxetine 20 MG CAP PO SCH (08:48)
[2019-05-01] MEDS: ONDANSETRON 4MG/2ML VIAL (J2405) IV PRN ×3 (08:48→20:30)
--- NOTE | 2019-05-01 09:05 | ROOR ---
Patient Name: Faith Hernandez Procedure Date: 04/30/2019 11:49 AM Date of : 1950 Age: 69 Room: Main OR Gender: Female Note Status: Finalized Procedure: Upper GI endoscopy Indications: Heartburn Providers: Og HILLIARD MD Referring MD: 2. Inpatient 2. Inpatient, EILEEN MEZA DO Requesting Provider: Medicines: Monitored Anesthesia Care Complications: No immediate complications. Procedure: Pre-Anesthesia Assessment: - The heart rate, respiratory rate, oxygen saturations, blood pressure, adequacy of pulmonary ventilation, and response to care were monitored throughout the procedure. The Endoscope was introduced through the mouth, and advanced to the third part of duodenum. The upper GI endoscopy was accomplished without difficulty. The patient tolerated the procedure well. Findings: The esophagus was normal. The stomach was normal. The examined duodenum was normal. Successful Stool Transplantation performed. Impression: - Normal esophagus. - Normal stomach. - Normal examined duodenum. - Successful Stool Transplantation performed into 3rd portion duodenum. - No specimens collected. Recommendation: - I suspect this pt has obstructive/restrictive symptoms of diarrhea likely related to "chronic diverticulitis"/Myomatous colon wall changes. The C diff may well be incidental/colonisation. Colonoscopy is recommended to rule out other causes such as malignancy. She will follow up with her surgeon to complete this testing. - Observe patient's clinical course. - Return to referring physician as previously scheduled. Og Hilliard MD Og HILLIARD MD 05/01/2019 9:05:38 AM Electronically signed by Og HILLIARD MD Number of Addenda: 0 Note Initiated On: 04/30/2019 11:49 AM Estimated Blood Loss: Estimated blood loss: none.
[2019-05-01] MEDS: DICYCLOMINE 10 MG CAP PO PRN ×2 (10:28→20:30)
--- NOTE | 2019-05-01 13:11 | IPNPDOC ---
Date Seen The patient was seen on 05/01/19. Progress Note SUBJECTIVE: Patient is a 69-year-old female with a past medical history of recurrent diarrhea who presented to the emergency room with complaints of diarrhea. She was seen and examined this morning lying comfortably in the bed does not appear in acute distress. She does state she continues to have diarrhea after the transplant yesterday. She complains of having 9 bowel movements last night and 3 more this morning. She states that her abdominal pain has not gotten better at all. She also admits to having some nausea this morning but she did not get her Zofran. She denies fevers, chills, shortness of breath or palpitation. OBJECTIVE PHYSICAL EXAMINATION: VITAL SIGNS: Please see below. GENERAL: Pleasant 69-year-old female laying comfortably on her left side, appropriate answering questions and in no acute distress. HEENT: Atraumatic normocephalic pupils equal round and reactive extraocular movements are intact, mucous membranes are moist no carotid bruits appreciated CARDIOVASCULAR: Normal S1-S2 sound with a normal S2 splitting with inspiration, Soft 1/6 systolic murmur at the second loudest on the left intercostal space nonradiating RESPIRATORY: Positive bilaterally no audible wheezing, rhonchi, Rales ABDOMINAL: Positive bowel sounds in all 4 quadrants miles tenderness with deep palpation of the upper and lower abdomen EXTREMITIES: No lower extremity edema NEUROLOGICAL: No focal deficits, Alert and oriented 3. PSYCHOLOGICAL: Appropriate LABORATORY DATA, IMAGING STUDIES, MICROBIOLOGY: Please see below. DVT prophylaxis ordered?:Yes Heparin ASSESSMENT AND PLAN: This is a 69-year-old female Who presented to the emergency room with complaints of diarrhea. PROBLEMS: Recurrent diarrhea - likely 2/2 C. difficile colitis -history of recurrent C. difficile colitis and failed multiple outpatient medications -GI panel +C. Diff A/B -c/w symptomatic control with Tylenol, Percocet PRN, Bentyl and Zofran -Miguel top to apply on buttocks -s/p stool transplant 04/30/19 by GI, Dr. Hilliard CAD s/p stent x2 - Hx of [place] - c/w Plavix HTN -Slightly elevated this a.m. but continues to have diarrhea can consider restarting her home meds if needed - home frusemide on hold Hx of Pericarditis - Last episode was 03/2018 DLP - Currently not on any medications Anxiety - c/w Clonazepam & Fluoxetine GERD - c/w Protonix IV DVT prophylaxis - c/w Heparin I saw and evaluated the patient. I agree with the findings and plan of care as documented in the above note VS, I&O, 24H, Fishbone Vital Signs/I&O Vital Signs Date Time Temp Pulse Resp B/P (MAP) Pulse Ox O2 Delivery O2 Flow Rate FiO2 05/01/19 08:00 96.6 66 14 161/73 (102) 95 04/30/19 14:44 2 04/25/19 21:46 Room Air I&O- Last 24 Hours up to 6 AM 05/01/19 06:00 Intake Total 1380 ml Output Total 103 ml Balance 1277 ml Laboratory Data 24H LABS Laboratory Tests 2 05/01/19 06:11: Immature Granulocyte % (Auto) 0.2, White Blood Count 4.9, Red Blood Count 4.10, Hemoglobin 12.2, Hematocrit 38.1, Mean Corpuscular Volume 92.9, Mean Corpuscular Hemoglobin 29.8, Mean Corpuscular Hemoglobin Concent 32.0, Red Cell Distribution Width 14.6H, Platelet Count 214, Neutrophils (%) (Auto) 47.0, Lymphocytes (%) (Auto) 39.6, Monocytes (%) (Auto) 10.3H, Eosinophils (%) (Auto) 2.1, Basophils (%) (Auto) 0.8, Neutrophils # (Auto) 2.3, Lymphocytes # (Auto) 1.9, Monocytes # (Auto) 0.5, Eosinophils # (Auto) 0.1, Basophils # (Auto) 0.0, Nucleated Red Blo od Cells % (auto) 0.0, Anion Gap 5L, Glomerular Filtration Rate > 60.0, Blood Urea Nitrogen 9, Creatinine 0.74, Sodium Level 140, Potassium Level 4.2#, Chloride Level 106, Carbon Dioxide Level 29, Calcium Level 10.0, Magnesium Level 2.2 CBC/BMP Laboratory Tests 05/01/19 06:11 Red Blood Count 4.10, Mean Corpuscular Volume 92.9, Mean Corpuscular Hemoglobin 29.8, Mean Corpuscular Hemoglobin Concent 32.0, Red Cell Distribution Width 14.6 H, Neutrophils (%) (Auto) 47.0, Lymphocytes (%) (Auto) 39.6, Monocytes (%) (Auto) 10.3 H, Eosinophils (%) (Auto) 2.1, Basophils (%) (Auto) 0.8, Neutrophils # (Auto) 2.3, Lymphocytes # (Auto) 1.9, Monocytes # (Auto) 0.5, Eosinophils # (Auto) 0.1, Basophils # (Auto) 0.0, Calcium Level 10.0 Microbiology Microbiology 04/26/19 Gastrointestinal Tract Panel (PCR) - Final, Complete Clostridium Difficile A/B CANDACE MEI DO May 01, 2019 13:11 BISHOP HA MD May 05, 2019 14:46
[2019-05-01 16:00] VITALS: BP 156/72
[2019-05-01 20:00] VITALS: BP 166/74
[2019-05-01] MEDS: clonazePAM 0.5 MG TAB PO SCH (20:30)
[2019-05-01] MEDS: ONDANSETRON 4 MG TAB (S0181) PO PRN (22:04)
[2019-05-02] VITALS: BP 165/72
[2019-05-02 04:00] VITALS: BP 136/63
[2019-05-02] MEDS: HEPARIN SOD (PORCINE) 5000 UNITS/ML VIAL SC SCH ×3 (05:58→22:23)
[2019-05-02 07:01] LABS: BASO # 0.1 10^3/uL (0.0-0.2); BASO % 1.3 % (0.0-1.0); EOS # 0.1 10^3/uL (0.0-0.50); EOS % 1.5 % (0.0-3.0); HEMATOCRIT 39.6 % (36.0-47.0); HEMOGLOBIN 12.9 g/dl (12.0-15.5); LYMPH # 1.7 10^3/uL (1.5-4.5); LYMPH % 36.2 % (24.0-44.0); MEAN CORPUSCULAR HEMOGLOBIN 29.2 pg (27.0-33.0); MEAN CORPUSCULAR HGB CONC 32.6 g/dl (32.0-36.5); MEAN CORPUSCULAR VOLUME 89.6 fl (80.0-96.0); MONO # 0.4 10^3/uL (0.0-0.8); MONO % 8.7 % (0.0-5.0); NEUTROPHILS # 2.4 10^3/uL (1.8-7.7); NEUTROPHILS % 52.1 % (36.0-66.0); PLATELET COUNT, AUTOMATED 235 10^3/uL (150-450); RED BLOOD COUNT 4.42 10^6/uL (4.00-5.40); WHITE BLOOD COUNT 4.6 10^3/uL (4.0-10.0)
[2019-05-02 07:23] LABS: BLOOD UREA NITROGEN 10 MG/DL (7-18); CALCIUM LEVEL 10.1 MG/DL (8.8-10.2); CARBON DIOXIDE LEVEL 29 MEQ/L (21-32); CHLORIDE LEVEL 104 MEQ/L (98-107); CREATININE FOR GFR 0.77 MG/DL (0.55-1.30); GLOMERULAR FILTRATION RATE > 60.0 (>45); GLUCOSE, FASTING 94 MG/DL (70-100); MAGNESIUM LEVEL 2.2 MG/DL (1.8-2.4); POTASSIUM SERUM 3.8 MEQ/L (3.5-5.1); SODIUM LEVEL 138 MEQ/L (136-145)
[2019-05-02 08:00] VITALS: BP 145/67
[2019-05-02] MEDS: CLOPIDOGREL 75 MG TAB PO SCH (08:37)
[2019-05-02] MEDS: FLUoxetine 20 MG CAP PO SCH (08:37)
[2019-05-02] MEDS: ONDANSETRON 4 MG TAB (S0181) PO PRN ×2 (10:01→20:44)
[2019-05-02] MEDS: PERCOCET 5MG/325MG TAB PO PRN (10:01)
[2019-05-02] MEDS: READI-CAT 2 PO SCH ×2 (14:25→15:19)
--- NOTE | 2019-05-02 14:45 | IPNPDOC ---
Date Seen The patient was seen on 05/02/19. Progress Note SUBJECTIVE: Patient is a 69-year-old female with a past medical history of recurrent diarrhea who presented to the emergency room with complaints of diarrhea. She was seen and examined this morning. Patient was nothing by mouth yesterday total this morning. She states that he had 2 diarrheal episodes this morning but they were not seen by nursing or eye. She states that a K pad has provided relief on her abdominal cramping but it still persisted. She rates the pain as 6 out of 10 which has been consistent with last 2 days as well. She will like to know what the next step of action. She does have a history of chronic diverticulitis but is not being evaluated by a surgeon outpatient. She has no other complaints at this time. Denies fevers, chills, night sweats, nausea, vomiting,. She admits to abdominal discomfort and diarrhea. OBJECTIVE PHYSICAL EXAMINATION: VITAL SIGNS: Please see below. GENERAL: Pleasant 69-year-old female laying comfortably on her left side, appropriate answering questions and in no acute distress. HEENT: Atraumatic normocephalic pupils equal round and reactive extraocular movements are intact, mucous membranes are moist no carotid bruits appreciated CARDIOVASCULAR: Normal S1-S2 sound with a normal S2 splitting with inspiration, Soft 1/6 systolic murmur at the second loudest on the left intercostal space nonradiating RESPIRATORY: Positive bilaterally no audible wheezing, rhonchi, Rales ABDOMINAL: Positive bowel sounds in all 4 quadrants miles tenderness with deep palpation of the lower abdomen EXTREMITIES: No lower extremity edema NEUROLOGICAL: No focal deficits, Alert and oriented 3. PSYCHOLOGICAL: Appropriate LABORATORY DATA, IMAGING STUDIES, MICROBIOLOGY: Please see below. DVT prophylaxis ordered?:Yes Heparin ASSESSMENT AND PLAN: This is a 69-year-old female Who presented to the emergency room with complaints of diarrhea. PROBLEMS: Recurrent diarrhea - likely 2/2 C. difficile colitis -history of recurrent C. difficile colitis and failed multiple outpatient medications -GI panel +C. 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 Hilliard Abdominal pain -History of chronic diverticulitis -K pad, Bentyl and Percocet on board for pain control -Because not improving will get CT imaging of the abdomen with oral contrast and reevaluate -Will continue to monitor -PT consulted and encouraged ambulation twice a day CAD s/p stent x2 - Hx of ID - c/w Plavix HTN -Slightly elevated last night but continues to have diarrhea can consider restarting her home meds if needed - home frusemide on hold Hx of Pericarditis - Last episode was 03/2018 DLP - Currently not on any medications Anxiety - c/w Clonazepam & Fluoxetine GERD - c/w Protonix IV DVT prophylaxis - c/w Heparin I saw and evaluated the patient. I agree with the findings and plan of care as documented in the above note VS, I&O, 24H, Fishbone Vital Signs/I&O Vital Signs Date Time Temp Pulse Resp B/P (MAP) Pulse Ox O2 Delivery O2 Flow Rate FiO2 05/02/19 10:31 18 05/02/19 08:00 97.7 63 145/67 (93) 95 04/30/19 14:44 2 I&O- Last 24 Hours up to 6 AM 05/02/19 06:00 Intake Total 760 ml Output Total 300 ml Balance 460 ml Laboratory Data 24H LABS Laboratory Tests 2 05/02/19 06:35: Immature Granulocyte % (Auto) 0.2, White Blood Count 4.6, Red Blood Count 4.42, Hemoglobin 12.9, Hematocrit 39.6, Mean Corpuscular Volume 89.6, Mean Corpuscular Hemoglobin 29.2, Mean Corpuscular Hemoglobin Concent 32.6, Red Cell Distribution Width 14.6H, Platelet Count 235, Neutrophils (%) (Auto) 52.1, Lymphocytes (%) (Auto) 36.2, Monocytes (%) (Auto) 8.7H, Eosinophils (%) (Auto) 1.5, Basophils (%) (Auto) 1.3H, Neutrophils # (Auto) 2.4, Lymphocytes # (Auto) 1.7, Monocytes # (Auto) 0.4, Eosinophils # (Auto) 0.1, Basophils # (Auto) 0.1, Nucleated Red Blood Cells % (auto) 0.0, Anion Gap 5L, Glomerular Filtration Rate > 60.0, Blood Urea Nitrogen 10, Creatinine 0.77, Sodium Level 138, Potassium Level 3.8, Chloride Level 104, Carbon Dioxide Level 29, Calcium Level 10.1, Magnesium Level 2.2 CBC/BMP Laboratory Tests 05/02/19 06:35 Red Blood Count 4.42, Mean Corpuscular Volume 89.6, Mean Corpuscular Hemoglobin 29.2, Mean Corpuscular Hemoglobin Concent 32.6, Red Cell Distribution Width 14.6 H, Neutrophils (%) (Auto) 52.1, Lymphocytes (%) (Auto) 36.2, Monocytes (%) (Auto) 8.7 H, Eosinophils (%) (Auto) 1.5, Basophils (%) (Auto) 1.3 H, Neutrophils # (Auto) 2.4, Lymphocytes # (Auto) 1.7, Monocytes # (Auto) 0.4, Eosinophils # (Auto) 0.1, Basophils # (Auto) 0.1, Calcium Level 10.1 Microbiology Microbiology 04/26/19 Gastrointestinal Tract Panel (PCR) - Final, Complete Clostridium Difficile A/B CANDACE MEI DO May 02, 2019 14:45 BISHOP HA MD May 05, 2019 15:00
[2019-05-02 16:00] VITALS: BP 177/77
--- NOTE | 2019-05-02 19:20 | REP ---
CT ABDOMEN AND PELVIS WITH ORAL CONTRAST: CT abdomen and pelvis performed with oral contrast. No IV contrast was administered. Sagittal and coronal reconstruction images are performed. Visualized lung bases demonstrate mild fibrotic changes. There are a few subcentimeter hypodensities in the liver likely representing tiny cysts or hemangiomas. Gallbladder is not well distended and not optimally evaluated, but no gross gallbladder wall thickening is seen. The spleen is normal in size. Adrenals demonstrate mild thickening. No suspicious adrenal mass is seen. Pancreas demonstrates tiny calcifications in the head and body suggesting prior pancreatitis. Kidneys demonstrate no stone or hydronephrosis. There is no hydroureter. There is atherosclerotic calcification of the abdominal aorta without aneurysm. I see no adenopathy. There is no free air or free fluid. Stomach is quite distended with oral contrast and other ingested material. The appendix is normal with no appendicitis. Multiple scattered diverticula are seen throughout the colon. Sigmoid colon appears mildly thickened with some mild stranding of the pericolonic fat suggesting mild diverticulitis. No abscess is seen. No pelvic mass is seen. The ovaries are normal. Urinary bladder is minimally distended and not optimally evaluated. IMPRESSION: Mild diffuse thickening of the wall of the sigmoid colon with mild pericolonic fat stranding. There are multiple diverticula in the sigmoid colon and to a lesser extent throughout the remainder of the colon. The findings are suggestive of mild sigmoid diverticulitis. No free air, free fluid or abscess. There appear to be a few tiny cysts or hemangiomas in the liver. There is adrenal gland thickening. Tiny pancreatic calcifications suggest prior pancreatitis. Electronically Signed by David Young MD 05/03/2019 09:56 A
[2019-05-02 20:00] VITALS: BP 179/78
[2019-05-02] MEDS: DICYCLOMINE 10 MG CAP PO PRN (20:44)
[2019-05-02] MEDS: clonazePAM 0.5 MG TAB PO SCH (20:44)
[2019-05-02] MEDS ORDERED: amLODIPine 5 MG TAB PO ONE (22:00)
[2019-05-02 22:23] VITALS: BP 167/74
[2019-05-03] VITALS: BP 133/62
[2019-05-03 04:20] VITALS: BP 148/70
[2019-05-03] MEDS: HEPARIN SOD (PORCINE) 5000 UNITS/ML VIAL SC SCH ×3 (06:37→21:35)
[2019-05-03] MEDS: CLOPIDOGREL 75 MG TAB PO SCH (09:14)
[2019-05-03] MEDS: FLUoxetine 20 MG CAP PO SCH (09:14)
[2019-05-03] MEDS: ONDANSETRON 4 MG TAB (S0181) PO PRN ×2 (09:14→21:35)
[2019-05-03 09:24] VITALS: BP 135/65
--- NOTE | 2019-05-03 12:46 | CR.PDOC ---
General Surgery Consultation Date of Consultation 05/03/19 History and Physical CONSULT REPORT FOR: hospitalist service REASON FOR CONSULTATION: diverticulitis with symptoms of abdominal pain, diarr hea, nausea HISTORY OF PRESENT ILLNESS: Patient is a 69 year old female admitted since 2017 with chronic C. Difficile Colitis for stool transplant treatment. She did get the Stool transplant treatment last monday via upper endoscopy but patient continues to have left sided abdominal pain, thus a CT abdomen and pelvis was done last night showing mild diverticulitis and thus I was asked to render my opinion on what to do with the patient in light of that she has had treatment for C. Difficile colitis. On speaking to her, she has had persistent and recurrent symptoms for a year a a half now. She used to have normal daily solid bms but at least for the past 2 years has been having episodes of loose stools. She was at the same time complaining of left sided abdominal discomfort as well as nausea. She was determined to have bouts of acute diverticulitis and was started on abx. Her diarrhea worsened last year and was admitted in the hospital for 3 years (sometime las apr, I think). She was found to have C. Difficile Colitis and has had treatments for this with improvement but not full resolution of her symptoms of crampy left side abdominal pain, diarrhea, nausea. She reports poor appetite and accompanying weight loss (unquantified) due to the length of time of her symptoms. She will have episodes of exacerbation. She reports pain that comes and goes 3-5 out of the 7 days in a week. She was admitted in January for 2 weeks at [facility] for exacerbation of her diarrhea. She had been seen by a Dr. mai (surgeon) for colonoscopy but deferred until her C. difficile has been eradicated. And now she is sent here in the hospital for stool transplant. Since then, patient reports mild improvement of the consistency of her stools, less frequency but was still having left side abdominal discomfort which led to the CT scan. She has been on regular diet. Her nausea is the one that prevents her to eat well but does get better with zofran. No vomiting reported. She has been afebrile throughout her stay here, no leukocytosis. PAST MEDICAL HISTORY: 1. . PAST SURGICAL HISTORY: INCLUDES: 1. . PREVIOUS ANESTHESIA REACTIONS: ALLERGIES: Please see below. FAMILY HISTORY: . HOME MEDICATIONS: Please see below. REVIEW OF SYSTEMS: GENERAL: [Denies chills, reports weight gain, reports feeling febrile yesterday]. HEENT: [Denies blurred vision and double vision. Denies ear symptoms. Denies ho arseness]. NECK: Denies any neck pain]. CARDIOVASCULAR: [Denies chest pain and palpitations]. MUSCULOSKELETAL: [Denies arthralgias, back pain and thrombophlebitis]. SKIN: [Denies rash]. NEUROLOGIC: [Denies headache, stroke and transient ischemic attack]. PSYCHIATRIC: [Denies anxiety and depression]. ENDOCRINE: [Denies thyroid disease]. HEMATOLOGY/ONCOLOGY: [Denies bleeding or clotting disorder]. HEART: [Denies any chest pains, palpitations, paroxysmal dyspnea, orthopnea]. PULMONARY: [Denies chronic cough, dyspnea and wheezing]. GASTROINTESTINAL: [Denies rectal bleeding, family history of colon cancer, constipation, diarrhea, dysphagia, heartburn and jaundice]. GENITOURINARY: [Denies dysuria, frequency, hematuria and nocturia]. ENDOCRINE: [Denies polydipsia, polyphagia, polyuria, heat or cold intolerance]. INFECTIOUS: [Denies any recent upper respiratory tract infection, UTI, need for use of antibiotics]. NUTRITION: [Reports good appetite]. PHYSICAL EXAMINATION: VITALS SIGNS: Please see below. GENERAL APPEARANCE:[Patient seen, laying in bed, awake, alert, and oriented. Comfortable, in no acute distress]. SKIN: [Warm and moist]. HEENT: [Normocephalic, atraumatic. [place] palpebral conjunctiva, anicteric sclerae. Lips and mucosa appear moist]. NECK: [Supple, no thyromegaly. No obvious jugular venous distention]. LUNGS: [Clear to auscultation bilaterally. No wheezing appreciated]. HEART: [No chest wall abnormalities. Regular rate and rhythm with no murmurs appreciated]. ABDOMEN: slight obese, minimally distended abdomen. several bruising areas from the lovenox on the left side of the abdomen. No herniations. Mild tenderness on deep palpation on left side close to the ASIS on that side and slightly suprapubic without guarding EXTREMITIES: [Extremities have no deformities. No edema identified] ANCILLARIES: . LABORATORY DATA: Please see below. IMAGING STUDIES: CT abdomen and pelvis IMPRESSION AND PLAN: c difficile colitis ?diverticulitis Her symptoms sharlene, the length of it (more than 1 1/2 years of discomfort) does not correlate with the CT scan picture of mild diverticulitis. Probably pain is multifactorial. I could not explain the nausea. Dr. Hilliard thinks that the Clostridium difficile picture is more of a colonisation. She just had a stool transplant done and it seems there is some mild improvement with the consistency of her stools (not fully solid yet) as well as the frequency of the diarrhea. The pain persists though this does not seem to be worsened. There is not really an excerbation point so I agree that this may not be an acute episode and I will not treat the "diverticulitis" with another round of antibiotics. There is some evidence that mild diverticulitis may resolve without antibiotic treatment. I suggest starting her on metamucil which will help with the loose consistency of her stools as well as the diverticulosis. It could very well be that the prolonged nature of her symptoms, multiple antibiotic treatment for the presumed diverticulitis and C. Difficile colitis would have altered her system and gut elizabeth that the symptoms of nausea, pain, diarrhea are all physiologic at this point. Before I could conclude though, she should be worked up for other causes of her symptoms. Surprising with the length of her symptoms that a colonoscopy has not been done yet. I dont think it needs to be done now. I counseled them to wait for a couple of weeks to see if the recent stool transplant treatment will work. If not then she needs a colonoscopy as an outpatient, rule out other causes (inflammatory, malignancy); determine severity of diverticulosis before we can determine if she will benefit from colon resection. no antibiotics. Her description of her symptoms does not correlate with the mild diverticulitis high fiber diet. Take metamucil reevaluate after a certain point (a couple of weeks?) if c difficile colonisation/infection improved with the stool transplant. Suggest in/oupt follow up with Dr. Guido (ID). Follow up with Dr. Hilliard. Patient needs colonoscopy as outpatient sharlene with continuous symptoms No surgical intervention required at this point yet. Vital Signs Vital Signs Date Time Temp Pulse Resp B/P (MAP) Pulse Ox O2 Delivery O2 Flow Rate FiO2 05/03/19 09:24 99.3 62 18 135/65 (88) 97 04/30/19 14:44 2 I&Os I&O- Last 24 Hours up to 6 AM 05/03/19 06:00 Intake Total 1492 ml Output Total 600 ml Balance 892 ml Laboratory Data Microbiology Microbiology 04/26/19 Gastrointestinal Tract Panel (PCR) - Final, Complete Clostridium Difficile A/B Home Medications Scheduled Clonazepam (Clonazepam) 0.5 Mg Tablet, 0.5 MG PO QHS, (Reported) Clopidogrel Bisulfate (Clopidogrel) 75 Mg Tablet, 75 MG PO DAILY, (Reported) Fluoxetine Hcl (Fluoxetine HCl) 40 Mg Capsule, 40 MG PO DAILY, (Reported) Furosemide (Furosemide) 20 Mg Tablet, 20 MG PO 3XW, (Reported) MON/MON/MON Pantoprazole Sodium (Pantoprazole Sodium) 40 Mg Tablet.dr, 40 MG PO DAILY, (Reported) Vancomycin Hcl (Vancomycin HCl) 125 Mg Capsule, 125 MG PO QID, (Reported) FOR 10 DAY COURSE, STARTED 04/23 Scheduled PRN Acetaminophen (Acetaminophen) 325 Mg Tablet, 650 MG PO Q4H PRN for PAIN, (Reported) Allergies Coded Allergies: Penicillins (Verified Allergy, Severe, ANAPHYLAXIS, 04/25/19) Iodinated Contrast- Oral and IV Dye (Verified Allergy, Unknown, 04/25/19) Shrimp (Verified Allergy, Unknown, 04/25/19) NIYAH SALCIDO MD May 03, 2019 12:45
[2019-05-03] MEDS ORDERED: ACETAMINOPHEN TAB 650MG DOSE (2X325MG) PO PRN (12:49)
--- NOTE | 2019-05-03 13:40 | IPNPDOC ---
Date Seen The patient was seen on 05/03/19. Progress Note SUBJECTIVE: Patient is a 69-year-old white female with a past medical history of CAD s/p stent x2, history of TX, Hypertension, history of pericarditis, dyslipidemia, history of C. difficile colitis presented to the emergency room with diarrhea. She recently had an episode of diverticulitis and was prescribed ciprofloxacin and flagyl. She states that she began having diarrhea soon after starting the antibiotics. She was tested for C. difficile and the test results were positive. She was prescribed vancomycin for the newly found C. difficile infection but continued to have diarrhea. She was then referred to Infectious Disease and was started on fidaxomycin; she failed two courses of fidaxomycin. Patient presented to [facility] ER after receiving an additional course of vancomycin from the [facility] ER. On presentation, she complained of abdominal cramps and a burning sensation in her upper abdomen. She has felt nauseous and lost a total of 15lbs in the last 2 weeks. She denies chills, chest pain, shortness of breath, cough or palpitations. Patient was examined at the bedside. She stated that she has left upper and lower quadrant tenderness and continuous abdominal cramping. She rates the abdominal pain as a 6/10. She has not had a bowel movement today but did have 6 very loose episodes of diarrhea yesterday. She denies fevers, chills, dysuria, or blood in the stool. Dr. Munson saw patient early this afternoon to assess her GI status. He does not believe that surgical intervention is required for her at this point. OBJECTIVE PHYSICAL EXAMINATION: VITAL SIGNS: Please see below. GENERAL: 69 year old white female lying in bed. She is not in acute distress and is speaking comfortably in full sentences. HEENT: NC AT, neck is supple CARDIOVASCULAR: Soft 1/6 systolic murmur heard best in left 2nd intercostal space. Normal S1S2 RESPIRATORY: clear to auscultation bilaterally, no wheezes heard on expiration ABDOMINAL: soft, normal bowel sounds, tender to deep palpation in left lower quadrant. EXTREMITIES: no edema noted on lower extremities. No cyanosis or rashes appreciated NEUROLOGICAL: no focal deficits PSYCHOLOGICAL: Normal affect LABORATORY DATA, IMAGING STUDIES, MICROBIOLOGY: Please see below. 1. Abdominal/pelvic CT 05/02/19: Mild diffuse thickening of the wall of the sigmoid colon with mild pericolonic fat stranding. There are multiple diverticula in the sigmoid colon and to a lesser extent throughout the remainder of the colon. The findings are suggestive of mild sigmoid diverticulitis. No free air, free fluid or abscess. There appear to be a few tiny cysts or hemangiomas in the liver. There is adrenal gland thickening. Tiny pancreatic calcifications suggest prior pancreatitis. DVT prophylaxis ordered?: Yes, Heparin ASSESSMENT AND PLAN: Patient is a 69-year-old white female with a past medical history of CAD s/p stent x2, history of TX, Hypertension, history of pericarditis, dyslipidemia, history of C. difficile colitis PROBLEMS: 1. C. difficile colitis with associated diarrhea -Has a history of C.diff infection and multiple failed outpatient treatments -GI PCR panel positive for Clostridium difficile A/B -Stool transplant 04/30/[address] Hilliard -Follow up with Dr. Guido as inpatient or outpatient 2. Abdominal pain 2/2 to mild diverticulitis -abdomen/pelvis CT findings suggestive of mild sigmoid diverticulitis -Patient seen by Dr. Munson -Take metamucil and eat a high fiber diet-per Dr. Munson -Follow up with Dr. Hilliard as outpatient -Patient encouraged to ambulate, working with PT/OT 3. CAD s/p stent x2 - Hx of TX - c/w Plavix 4. Hypertension -blood pressure within normal limits today: 135/65 - home furosemide on hold 5. Hx of Pericarditis - Last episode was 03/2018 6. DLP - Currently not on any medications 7. Anxiety - c/w Clonazepam & Fluoxetine 8. GERD - c/w Protonix IV DVT prophylaxis - c/w Heparin DISPOSITION: Patient is stable and prognosis is fair. She was seen by Surgery this afternoon who decided that she did not need surgery at this time. She will need to follow up with Dr. Hilliard. Patient and may need a colonoscopy as outpatient if her symptoms continue. Patient is recommended to take metamucil and eat a high fiber diet. She should also follow up with Dr. Guido. She will be discharged home tomorrow. We thank Dr. Munson for his input. I saw and evaluated the patient. I agree with the findings and plan of care as documented in the above note VS, I&O, 24H, Fishbone Vital Signs/I&O Vital Signs Date Time Temp Pulse Resp B/P (MAP) Pulse Ox O2 Delivery O2 Flow Rate FiO2 05/03/19 09:24 99.3 62 18 135/65 (88) 97 04/30/19 14:44 2 I&O- Last 24 Hours up to 6 AM 05/03/19 06:00 Intake Total 1492 ml Output Total 600 ml Balance 892 ml Laboratory Data Microbiology Microbiology 04/26/19 Gastrointestinal Tract Panel (PCR) - Final, Complete Clostridium Difficile A/B [facility] [place] May 03, 2019 13:40 BISHOP HA MD May 05, 2019 14:57
[2019-05-03] MEDS: DICYCLOMINE 10 MG CAP PO PRN (15:04)
[2019-05-03 16:06] VITALS: BP 134/68
[2019-05-03] MEDS: PERCOCET 5MG/325MG TAB PO PRN (17:38)
[2019-05-03 20:00] VITALS: BP 151/68
[2019-05-03] MEDS: METAMUCIL (PSYLLIUM) PACKET PO SCH (21:32)
[2019-05-03] MEDS: clonazePAM 0.5 MG TAB PO SCH (21:35)
[2019-05-04 04:00] VITALS: BP 136/65
[2019-05-04] MEDS: HEPARIN SOD (PORCINE) 5000 UNITS/ML VIAL SC SCH (06:19)
[2019-05-04 08:00] VITALS: BP 139/67
[2019-05-04] MEDS: CLOPIDOGREL 75 MG TAB PO SCH (08:37)
[2019-05-04] MEDS: FLUoxetine 20 MG CAP PO SCH (08:37)
[2019-05-04] MEDS: METAMUCIL (PSYLLIUM) PACKET PO SCH (08:37)
[2019-05-04] MEDS: ONDANSETRON 4 MG TAB (S0181) PO PRN (08:43)
[2019-05-04] MEDS ORDERED: DICY1CAP8 PO (10:51)
[2019-05-04] MEDS ORDERED: ONDA4TAB5 PO (10:51)
--- NOTE | 2019-05-04 10:55 | DS.PDOC ---
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 Hilliard ADMITTING /DISCHARGE DIAGNOSES: C. difficile colitis with associated diarrhea Abdominal pain 2/2 to mild diverticulitis CAD s/p stent x2 HTN Hx of Pericarditis DLP Anxiety GERD COMPLICATIONS/CHIEF COMPLAINT: C Difficile Enteritis. HISTORY OF PRESENT ILLNESS: Patient is a 69-year-old female with a PMHx of CAD s/p stent x2 (Hx of CT), HTN, Hx of Pericarditis (03/2018), DLP and history of recurrent C. difficile colitis who presented to the emergency room with diarrhea. Patient has reported that she had an episode of diverticulitis and was placed on Ciprofloxacin and Flagy. Upon starting these antibiotics she began to develop diarrhea. Testing had revealed that this was C. difficile colitis. Patient was placed on vancomycin, but failed to improve. She was subsequently referred to infectious disease and started on Fidaxomycin. Patient failed 2 courses. 2 weeks ago patient was continued to experience diarrhea and was tested for C. difficile colitis at [facility]. . She had subsequently follow-up with her primary care provider 2 days ago and again was noted to have positive C. difficile colitis. . She was started again back on vancomycin. Patient has presented to the emergency room with failure to improve on vancomycin. Patient does report abdominal cramping and burning sensation in the upper portion of her abdomen. She denies any vomiting but does report nausea. Patient denies any discomfort with urination. She denies any chest pain, shortness of breath, cough or palpitations. Patient does report chills but denies any fevers. Patient does report a very poor appetite and has reported a weight loss of 15 pounds over the last 2 weeks. HOSPITAL COURSE: The patient was admitted she was started on dificid until her stool transplant on April [address] Hilliard. Patient continue to have abdominal discomfort and CT abdomen was performed. It showed mild sigmoid diverticulitis. Surgery was consulted and states that this is not a surgical case and follow-up with GI outpatient. As well as possible colonoscopy outpatient and incorporate a high-fiber diet. On the day of discharge she was stable and Bentyl and Zofran, were sent to the pharmacy. She is to follow-up with her primary care provider in 7-10 days. DISCHARGE MEDICATIONS: Please see below. ALLERGIES: Please see below. PHYSICAL EXAMINATION ON DISCHARGE: VITAL SIGNS: Please see below. GENERAL: traumatic normocephalic pupils equal round and reactive extraocular movements are intact, mucous membranes are moist no carotid bruits appreciated CARDIOVASCULAR: Normal S1-S2 sound with a normal S2 splitting with inspiration, Soft 1/6 systolic murmur at the second loudest on the left intercostal space nonradiating RESPIRATORY: Positive bilaterally no audible wheezing, rhonchi, Rales ABDOMINAL: Positive bowel sounds in all 4 quadrants miles tenderness with deep palpation of the lower abdomen EXTREMITIES: No lower extremity edema NEUROLOGICAL: No focal deficits, Alert and oriented 3. PSYCHOLOGICAL: Appropriate LABORATORY DATA: Please see below. IMAGIN05/02/19 Abdominal/pelvic CT Mild diffuse thickening of the wall of the sigmoid colon with mild pericolonic fat stranding. There are multiple diverticula in the sigmoid colon and to a lesser extent throughout the remainder of the colon. The findings are suggestive of mild sigmoid diverticulitis. No free air, free fluid or abscess. There appear to be a few tiny cysts or hemangiomas in the liver. There is adrenal gland thickening. Tiny pancreatic calcifications suggest prior pancreatitis. PROGNOSIS: Fair ACTIVITY: As tolerated. DIET: Regular DISPOSITION: Home DISCHARGE INSTRUCTIONS: 1. Follow-up with PCP in 7-10 days appointment scheduled 2. F.U. with surgery in 14-21 days, will need to call monday when office opens to schedule with Dr. Munson 3. F.u. with GI in 14-21 days, will need to call Monday when office opens to schedule with Dr. Hilliard 2. Avoid PPIs such as (pantoprazole) 3. If symptoms return or worsen please call your PCP or return to the ER. DISCHARGE CONDITION: Stable. I saw and evaluated the patient. I agree with the findings and plan of care as documented in the documenters note. I spent 45 minutes coordinating this patient's discharge. Vital Signs/I&Os Vital Signs Date Time Temp Pulse Resp B/P (MAP) Pulse Ox O2 Delivery O2 Flow Rate FiO2 05/04/19 04:00 97.7 63 18 136/65 (88) 96 04/30/19 14:44 2 I&O- Last 24 Hours up to 6 AM 05/04/19 06:00 Intake Total 635 ml Output Total 1150 ml Balance -515 ml Microbiology Microbiology 04/26/19 Gastrointestinal Tract Panel (PCR) - Final, Complete Clostridium Difficile A/B Discharge Medications Scheduled Clonazepam (Clonazepam) 0.5 Mg Tablet, 0.5 MG PO QHS, (Reported) Clopidogrel Bisulfate (Clopidogrel) 75 Mg Tablet, 75 MG PO DAILY, (Reported) Fluoxetine Hcl (Fluoxetine HCl) 40 Mg Capsule, 40 MG PO DAILY, (Reported) Furosemide (Furosemide) 20 Mg Tablet, 20 MG PO 3XW, (Reported) MON/MON/FRI Scheduled PRN Acetaminophen (Acetaminophen) 325 Mg Tablet, 650 MG PO Q4H PRN for PAIN, (Reported) Dicyclomine HCl (Dicyclomine HCl) 10 Mg Capsule, 10 MG PO Q8HP PRN for abdominal spasms Ondansetron HCl (Ondansetron HCl) 4 Mg Tablet, 4 MG PO BIDP PRN for NAUSEA Allergies Coded Allergies: Penicillins (Verified Allergy, Severe, ANAPHYLAXIS, 04/25/19) Iodinated Contrast- Oral and IV Dye (Verified Allergy, Unknown, 04/25/19) Shrimp (Verified Allergy, Unknown, 04/25/19) CANDACE MEI DO May 04, 2019 10:55 BISHOP HA MD May 05, 2019 15:00
== END 2019-05-04 10:45 | disposition home or self-care (01) | DRG 248 ==
LOC: M ED 14:58 → M ED INP 17:42 → M MSPAV 22:15 → M PED 04-30 22:00
PROVIDERS: ADMIT Internal Medicine; ATTEND Internal Medicine
PROC: 3E0J8GC Introduction of Other Therapeutic Substance into Biliary and Pancreatic Tract, Via Natural or Artificial Opening Endoscopic (ICD-10-PCS; 2019-04-30)
PROC: 0DJ08ZZ Inspection of Upper Intestinal Tract, Via Natural or Artificial Opening Endoscopic (ICD-10-PCS; principal; 2019-04-30 12:30)
DX: A04.71 Enterocolitis due to Clostridium difficile, recurrent (principal); I10 Essential (primary) hypertension; K57.32 Diverticulitis of large intestine without perforation or abscess without bleeding; I25.10 Atherosclerotic heart disease of native coronary artery without angina pectoris; I25.2 Old myocardial infarction; K21.9 Gastro-esophageal reflux disease without esophagitis; E78.5 Hyperlipidemia, unspecified; R63.4 Abnormal weight loss; F41.9 Anxiety disorder, unspecified; Z79.899 Other long term (current) drug therapy; Z88.0 Allergy status to penicillin; Z91.041 Radiographic dye allergy status; Z91.013 Allergy to seafood; Z95.5 Presence of coronary angioplasty implant and graft; Z87.891 Personal history of nicotine dependence; Z79.02 Long term (current) use of antithrombotics/antiplatelets

== ENCOUNTER → 2019-05-09 | Outpatient (REF) | payer MEDICARE, BC ==
[~2019-05-09] MED LIST: ACET1TAB55 PO; AMLO5TAB6 PO; ATOR40TA75 PO; CLON0.5T2 PO; CLOP75TA2 PO; DICY1CAP8 PO; DICY20TA11 PO; DIFI200T PO; DONE10TA90; DONE10TA90 PO; FLUO40CA PO; FURO20TA2 PO; HYDR-4571 PO; HYDR1CR TOP; IBUP-1022 PO; LOSA100T50 PO; NITR0.2D5 TOP; ONDA-83 PO; PANT40TA3 PO; VANC125C3 PO; VENTAER INH
[2019-05-10 08:47] LABS: CLOSTRIDIUM DIFFICILE PCR POSITIVE (NEGATIVE)
== END ==
LOC: M LAB REF 11:44
PROVIDERS: ATTEND Internal Medicine Gastroenterology
DX: R19.7 Diarrhea, unspecified (principal)

== ENCOUNTER 2019-05-15 13:54 | Outpatient (CLI) | payer MEDICARE, BC ==
[~2019-05-15] VITALS: Ht 154.9 cm; Wt 63.0 kg
[~2019-05-15 13:54] MED LIST changes: -AMLO5TAB6 PO; -ATOR40TA75 PO; -CLON0.5T2 PO; +CLON0.5T8 PO; -DICY20TA11 PO; -DIFI200T PO; -DONE10TA90 PO; -HYDR-4571 PO; -HYDR1CR TOP; -IBUP-1022 PO; -LOSA100T50 PO; -NITR0.2D5 TOP; -ONDA-83 PO; +ONDA4TAB5 PO; -VENTAER INH
[2019-05-15 14:10] VITALS: BP 122/56
[2019-05-15] MEDS ORDERED: NS IV ONE (15:00)
[2019-05-15] MEDS ORDERED: BEZLOTOXUMAB IV ONE (15:00)
[2019-05-15] MEDS ORDERED: FILTER 1.2 MICRON (ADULT TPN/MANNITOL/REMICADE) XX ONE (15:00)
[2019-05-15 16:30] VITALS: BP 132/61
== END 2019-05-15 16:00 | disposition home or self-care (01) ==
LOC: M INFU 13:54
PROVIDERS: ATTEND Internal Medicine Infectious Disease
DX: A04.71 Enterocolitis due to Clostridium difficile, recurrent (principal)
CPT/HCPCS: 96365; J0565

== ENCOUNTER 2019-06-13 13:09 | Emergency (ER) | payer MEDICARE, BC ==
[~2019-06-13] VITALS: Ht 154.9 cm; Wt 65.5 kg
[2019-06-13] MEDS ORDERED: ONDANSETRON 4MG/2ML VIAL (J2405) IV ONE (14:30)
[2019-06-13] MEDS ORDERED: NS 1,000 ML IV ONE (14:30)
[2019-06-13 15:21] LABS: HEMATOCRIT 39.8 % (36.0-47.0); HEMOGLOBIN 13.2 g/dl (12.0-15.5); MEAN CORPUSCULAR HEMOGLOBIN 30.1 pg (27.0-33.0); MEAN CORPUSCULAR HGB CONC 33.2 g/dl (32.0-36.5); MEAN CORPUSCULAR VOLUME 90.7 fl (80.0-96.0); PLATELET COUNT, AUTOMATED 316 10^3/uL (150-450); RED BLOOD COUNT 4.39 10^6/uL (4.00-5.40); WHITE BLOOD COUNT 6.7 10^3/uL (4.0-10.0)
[2019-06-13 15:45] LABS: BLOOD UREA NITROGEN 9 MG/DL (7-18); CALCIUM LEVEL 10.4 MG/DL (8.8-10.2); CARBON DIOXIDE LEVEL 26 MEQ/L (21-32); CHLORIDE LEVEL 103 MEQ/L (98-107); CREATININE FOR GFR 0.74 MG/DL (0.55-1.30); GLOMERULAR FILTRATION RATE > 60.0 (>45); GLUCOSE, FASTING 89 MG/DL (70-100); POTASSIUM SERUM 4.8 MEQ/L (3.5-5.1); SODIUM LEVEL 137 MEQ/L (136-145)
[2019-06-13 16:33] VITALS: BP 139/63
== END 2019-06-13 16:44 | disposition home or self-care (01) ==
LOC: M ED 13:09
DX: R19.7 Diarrhea, unspecified (principal); E78.5 Hyperlipidemia, unspecified; Z95.5 Presence of coronary angioplasty implant and graft; Z91.041 Radiographic dye allergy status; Z88.0 Allergy status to penicillin; Z91.013 Allergy to seafood; Z79.899 Other long term (current) drug therapy
CPT/HCPCS: 80048; 85027; 96374; 99284; J2405

== ENCOUNTER → 2019-06-20 | Outpatient (REF) | payer MEDICARE, BC ==
[2019-06-20 14:05] LABS: APPEARANCE, URINE CLEAR (CLEAR); BACTERIA, URINE AUTO 1+ (NEGATIVE); BILIRUBIN, URINE AUTO NEGATIVE (NEGATIVE); BLOOD, URINE BLOOD NEGATIVE (NEGATIVE); COLOR, URINE STRAW (YELLOW); GLUCOSE, URINE (UA) AUTO NEGATIVE (NEGATIVE); KETONE, URINE AUTO NEGATIVE (NEGATIVE); LEUKOCYTE ESTERASE, URINE AUTO TRACE (NEGATIVE); NITRITE, URINE AUTO NEGATIVE (NEGATIVE); PROTEIN, URINE AUTO NEGATIVE (NEGATIVE); RBC, URINE AUTO 0 /HPF (0-3); SPECIFIC GRAVITY URINE AUTO 1.002 (1.002-1.035); SQUAMOUS EPITHELIAL CELL UR AU 0 /HPF (0-6); UROBILINOGEN, URINE AUTO 0.2 mg/dL (0.0-2.0); WBC, URINE AUTO 1 /HPF (0-3)
== END ==
LOC: M SFHCPLAZ 13:00
PROVIDERS: ATTEND Internal Medicine Infectious Disease
DX: A04.71 Enterocolitis due to Clostridium difficile, recurrent (principal); R30.0 Dysuria
CPT/HCPCS: 81001; 87088; 87186; 87507; G0463

== ENCOUNTER → 2019-06-25 | Outpatient (CLI) | payer MEDICARE, BC ==
[~2019-06-25] MED LIST changes: +READI-CAT 2 As Ordered ONE
--- NOTE | 2019-06-25 17:31 | REP ---
CT of the abdomen and pelvis with bowel contrast, without IV contrast: Comparison is 05/02/2019. At the time of scanning. The bowel contrast has reached the rectosigmoid colon. There are diverticula throughout the entire colon as previously. The diverticular most numerous in the descending colon and sigmoid colon as previously. There is diffuse mild and sigmoid colon wall thickening, unchanged, compatible with chronic diverticulosis. There is no pericolonic phlegmon or abscess to suggest diverticulitis on the study today. There is no pneumoperitoneum. There is no ascites. The visualized lung ramsay are unremarkable. The hepatic parenchyma again demonstrates a few sub centimeter hypodensities, nonspecific, unchanged, compatible with cysts or small hemangioma is as previously. The gallbladder is unremarkable. The few splenic calcifications are again noted, possibly residual from prior pancreatitis, unchanged. The spleen is unremarkable. There is mild thickening of the adrenals bilaterally, unchanged, possibly adrenal cortical hyperplasia. No adrenal nodules are identified as previously. The kidneys and abdominal aorta are unremarkable except for aortic calcified atheroma, unchanged. There is no periaortic adenopathy or mass. There is no bowel distension or obstruction. The mesentery is unremarkable. Pelvis: The appendix and terminal ileum are unremarkable. The uterus and adnexa are unremarkable. There is no ascites or adenopathy. The bladder is unremarkable. Impression: There are diverticula throughout the entire colon, most numerous in the descending colon and sigmoid colon. There is no evidence of diverticulitis on the current study. There is chronic wall thickening of the sigmoid colon compatible with chronic diverticulosis. The adrenal glands are mildly thickened bilaterally, unchanged, compatible with adrenal cortical hyperplasia. There are a few pancreatic calcifications, possibly from prior pancreatitis, unchanged. There are a few small hepatic hypodensities, unchanged, compatible with cysts or small hemangiomas. Electronically Signed by David Tse MD 06/25/2019 05:22 P
== END ==
LOC: M RAD 14:39
PROVIDERS: ATTEND Internal Medicine Infectious Disease
DX: K57.30 Diverticulosis of large intestine without perforation or abscess without bleeding (principal); I70.0 Atherosclerosis of aorta; K76.89 Other specified diseases of liver

== ENCOUNTER 2019-07-17 10:56 | Day surgery (SDC) | payer MEDICARE, BC ==
[~2019-07-17] VITALS: Ht 154.9 cm; Wt 67.1 kg
[~2019-07-17 10:56] MED LIST changes: +AMLO5TAB6 PO; +ATOR40TA75 PO; +DICY20TA11 PO; +DIFI200T PO; +DONE10TA90 PO; +LIDOCAINE 2% INJ 100 MG/5 ML SDV (FOR ANES.) As Ordered ONE; +LOSA100T50 PO; +NITR0.2D5 TOP; +NS 1,000 ML IV ONE; -READI-CAT 2 As Ordered ONE
[2019-07-17] MEDS ORDERED: PROPOFOL 200 MG/20 ML VIAL As Ordered ONE ×2 (12:07→13:36)
--- NOTE | 2019-07-17 14:03 | ROOR ---
Patient Name: Faith Hernandez Procedure Date: 07/17/2019 1:58 PM Date of : 1950 Age: 69 Room: [facility] Gender: Female Note Status: Finalized Procedure: Colonoscopy Indications: Preoperative assessment, Follow-up of diverticulitis Providers: Edgar Munson MD Referring MD: Christiano TOLEDO MD. Requesting Provider: Medicines: Monitored Anesthesia Care Complications: No immediate complications. Procedure: Pre-Anesthesia Assessment: - Prior to the procedure, a History and Physical was performed, and patient medications and allergies were reviewed. The patient is competent. The risks and benefits of the procedure and the sedation options and risks were discussed with the patient. All questions were answered and informed consent was obtained. Patient identification and proposed procedure were verified by the physician, the nurse and the anesthesiologist in the endoscopy suite. Mental Status Examination: alert and oriented. Airway Examination: normal oropharyngeal airway and neck mobility. Respiratory Examination: clear to auscultation. CV Examination: normal. Prophylactic Antibiotics: The patient does not require prophylactic antibiotics. Prior Anticoagulants: The patient has taken no previous anticoagulant or antiplatelet agents. ASA Grade Assessment: III - A patient with severe systemic disease. After reviewing the risks and benefits, the patient was deemed in satisfactory condition to undergo the procedure. The anesthesia plan was to use monitored anesthesia care (MAC). Immediately prior to administration of medications, the patient was re-assessed for adequacy to receive sedatives. The heart rate, respiratory rate, oxygen saturations, blood pressure, adequacy of pulmonary ventilation, and response to care were monitored throughout the procedure. The physical status of the patient was re-assessed after the procedure. The Colonoscope was introduced through the anus and advanced to the cecum, identified by appendiceal orifice and ileocecal valve. The colonoscopy was technically difficult and complex due to multiple diverticula in the colon and a redundant colon. The patient tolerated the procedure well. The quality of the bowel preparation was adequate to identify polyps. Findings: Hemorrhoids were found on perianal exam. Multiple medium-mouthed diverticula were found in the sigmoid colon, descending colon, transverse colon, ascending colon and cecum. There was evidence of an impacted diverticulum. There was no evidence of diverticular bleeding. Five semi-pedunculated polyps were found in the ascending colon and cecum. The polyps were 3 to 12 mm in size. These polyps were removed with a hot snare. Resection and retrieval were complete. Estimated blood loss was minimal. The retroflexed view of the distal rectum and anal verge was normal and showed no anal or rectal abnormalities. Impression: - Hemorrhoids found on perianal exam. - Moderate diverticulosis in the sigmoid colon, in the descending colon, in the transverse colon, in the ascending colon and in the cecum. There was evidence of an impacted diverticulum. There was no evidence of diverticular bleeding. - Five 3 to 12 mm polyps in the ascending colon and in the cecum, removed with a hot snare. Resected and retrieved. - The distal rectum and anal verge are normal on retroflexion view. Recommendation: - Discharge patient to home (ambulatory). - Return to my office in 2 weeks. Edgar Munson MD Edgar Munson MD 07/17/2019 2:03:19 PM Electronically signed by Edgar Munson MD Number of Addenda: 0 Note Initiated On: 07/17/2019 1:58 PM Estimated Blood Loss: Estimated blood loss was minimal.
[2019-07-17 14:20] VITALS: BP 165/77
== END 2019-07-17 14:39 | disposition home or self-care (01) ==
LOC: M OPP 10:56
PROVIDERS: ATTEND Surgery
DX: Z01.818 Encounter for other preprocedural examination (principal); K64.9 Unspecified hemorrhoids; D12.2 Benign neoplasm of ascending colon; D12.0 Benign neoplasm of cecum; K57.30 Diverticulosis of large intestine without perforation or abscess without bleeding; K57.32 Diverticulitis of large intestine without perforation or abscess without bleeding; Z79.899 Other long term (current) drug therapy; Z88.0 Allergy status to penicillin; Z91.013 Allergy to seafood; Z86.19 Personal history of other infectious and parasitic diseases

== ENCOUNTER → 2019-08-21 | Outpatient (REF) | payer MEDICARE, BC ==
[~2019-08-21] MED LIST changes: +CLON0.5T2 PO; -CLON0.5T8 PO; -LIDOCAINE 2% INJ 100 MG/5 ML SDV (FOR ANES.) As Ordered ONE; -NS 1,000 ML IV ONE
== END ==
LOC: M SFHCPLAZ 12:07
PROVIDERS: ATTEND Internal Medicine Infectious Disease
DX: A04.71 Enterocolitis due to Clostridium difficile, recurrent (principal)

== ENCOUNTER 2019-09-09 12:24 | Day surgery (SDC) | payer MEDICARE, BC ==
[~2019-09-09] VITALS: Ht 154.9 cm; Wt 63.0 kg
[~2019-09-09 12:24] MED LIST changes: +FECAL MICROBIOTA PREPARATION 250 ML BTL (J3590) XX ONE; +NS 1,000 ML IV ONE
[2019-09-09] MEDS ORDERED: PROPOFOL 200 MG/20 ML VIAL As Ordered ONE (13:54)
[2019-09-09] MEDS ORDERED: LIDOCAINE 2% INJ 100 MG/5 ML SDV (FOR ANES.) As Ordered ONE (13:54)
--- NOTE | 2019-09-09 14:30 | ROOR ---
Patient Name: Faith Hernandez Procedure Date: 09/09/2019 1:49 PM Date of : 1950 Age: 69 Room: [facility] Gender: Female Note Status: Finalized Procedure: Colonoscopy Indications: Fecal transplant for treatment of recurrent Clostridium difficile diarrhea, Chronic diarrhea, Abnormal CT of the GI tract Providers: Og HILLIARD MD Referring MD: EILEEN MEZA DO, Christiano TOLEDO MD. Requesting Provider: Medicines: Monitored Anesthesia Care Complications: No immediate complications. Procedure: Pre-Anesthesia Assessment: - The heart rate, respiratory rate, oxygen saturations, blood pressure, adequacy of pulmonary ventilation, and response to care were monitored throughout the procedure. The Colonoscope was introduced through the anus and advanced to 10 cm into the ileum. The colonoscopy was performed without difficulty. The patient tolerated the procedure well. The quality of the bowel preparation was good. Findings: Biopsies for histology were taken with a cold forceps from the ascending colon and transverse colon for evaluation of microscopic colitis. The decision was made to proceed with fecal microbiota transplant (bacteriotherapy). Donor stool was supplied by [facility] (purchased frozen stool) as per protocol. Approximately 250 mL of the donor stool was instilled in the cecum. A detailed colonoscopic exam could not be performed upon scope withdrawal secondary to limited visibility from the instilled stool. This precludes the ability to screen for colon cancer, and the patient was made aware of this prior to the procedure. The terminal ileum appeared normal. - This is a very limited visual exam, but I see no overt major mucosal abnoramlities of ileum or colon. Impression: - Fecal Microbiota Transplant (Bacteriotherapy) performed in the cecum. - A detailed colonoscopic exam could not be performed upon scope withdrawal secondary to limited visibility from the instilled stool. This precludes the ability to screen for colon cancer, and the patient was made aware of this prior to the procedure. - Biopsies were taken with a cold forceps from the ascending colon and transverse colon for evaluation of microscopic colitis. Recommendation: - Refer to a surgeon as previously scheduled. Og Hilliard MD Og HILLIARD MD 09/09/2019 2:20:11 PM Electronically signed by Og HILLIARD MD Number of Addenda: 0 Note Initiated On: 09/09/2019 1:49 PM Estimated Blood Loss: Estimated blood loss: none.
[2019-09-09 14:35] VITALS: BP 147/67
[2019-09-09] MEDS ORDERED: VENTAER INH (15:30)
== END 2019-09-09 15:03 | disposition home or self-care (01) ==
LOC: M OPP 12:24
PROVIDERS: ATTEND Internal Medicine Gastroenterology
DX: A04.71 Enterocolitis due to Clostridium difficile, recurrent (principal); K52.9 Noninfective gastroenteritis and colitis, unspecified; R93.3 Abnormal findings on diagnostic imaging of other parts of digestive tract; Z88.0 Allergy status to penicillin; Z91.041 Radiographic dye allergy status

== ENCOUNTER 2019-09-16 09:47 | Inpatient (IN) | payer MEDICARE, BC ==
[2019-09-16] VITALS (7 sets, daily range): BP systolic 115–135; BP diastolic 48–72
[~2019-09-16] VITALS: Ht 157.5 cm; Wt 63.0 kg
[2019-09-16] MEDS: FLUoxetine 20 MG CAP PO SCH (09:00)
[~2019-09-16 09:47] MED LIST changes: -FECAL MICROBIOTA PREPARATION 250 ML BTL (J3590) XX ONE; +LIDOCAINE 1% MDV 20ML VIAL SQ PRN; -NS 1,000 ML IV ONE; +ONDA-83 PO; -ONDA4TAB5 PO; +VENTAER INH
[2019-09-16] MEDS ORDERED: BUPIVACAINE HCL 0.25% 10 ML VIAL As Ordered ONE (09:48)
[2019-09-16] MEDS ORDERED: LIDOCAINE 1% SDV INJ 30 ML VIAL As Ordered ONE (09:48)
[2019-09-16] MEDS ORDERED: BUPIVACAINE HCL 0.25% 30 ML VIAL As Ordered ONE (09:49)
[2019-09-16] MEDS ORDERED: BUPIVACAINE LIPOSOME/PF 1.3% 20ML VIAL (13.3MG/ML)(EXPAREL)(C9290 PER1MG) As Ordered ONE (09:49)
[2019-09-16] MEDS ORDERED: HEPARIN SOD (PORCINE) 5000 UNITS/ML VIAL SQ ONE (10:00)
[2019-09-16] MEDS ORDERED: ALVIMOPAN 12 MG CAPSULE (ENTEREG) PO ONE (10:00)
[2019-09-16] MEDS ORDERED: metroNIDAZOLE 500 MG in IV 1 EA IV ONE (10:00)
[2019-09-16] MEDS ORDERED: cefoTEtan DISODIUM 2 GM in D5W MINI-BAG PLUS 50 ML IV ONE (10:15)
[2019-09-16] MEDS ORDERED: LR 1,000 ML IV ONE (11:00)
[2019-09-16] MEDS ORDERED: PHENYLephrine HCL 500 MCG/5 ML (100MCG/ML) SYRINGE (J2370) As Ordered ONE (11:43)
[2019-09-16] MEDS ORDERED: LIDOCAINE 2% INJ 100 MG/5 ML SDV (FOR ANES.) As Ordered ONE (11:43)
[2019-09-16] MEDS ORDERED: MIDAZOLAM INJ 2 MG/2 ML VIAL (J2250) As Ordered ONE (11:43)
[2019-09-16] MEDS ORDERED: dexameTHASONE 4 MG/ML 1ML VIAL (J1100) As Ordered ONE (11:43)
[2019-09-16] MEDS ORDERED: ROCURONIUM BROMIDE 50 MG/5 ML VIAL As Ordered ONE ×2 (11:43→12:30)
[2019-09-16] MEDS ORDERED: ONDANSETRON 4MG/2ML VIAL (J2405) As Ordered ONE (11:43)
[2019-09-16] MEDS ORDERED: fentaNYL 100 MCG/2 ML INJECTION (J3010) As Ordered ONE (11:43)
[2019-09-16] MEDS ORDERED: propofoL 200 MG/20 ML VIAL As Ordered ONE (11:43)
[2019-09-16] MEDS ORDERED: ePHEDrine SULFATE 25 MG/5 ML(5MG/ML) SYRINGE As Ordered ONE (11:46)
[2019-09-16] MEDS ORDERED: HYDROmorphone HCL 2 MG/ML 1ML VIAL (J1170) As Ordered ONE (12:23)
[2019-09-16] MEDS ORDERED: SUGAMMADEX SODIUM 500 MG/5 ML VIAL (BRIDION) As Ordered ONE (13:02)
[2019-09-16] MEDS ORDERED: EPINEPHrine INJ 1 MG/ML 1ML VIAL As Ordered ONE (14:36)
[2019-09-16] MEDS: LR 1,000 ML IV SCH ×2 (15:12→20:32)
[2019-09-16] MEDS ORDERED: LR 1,000 ML IV SCH (15:30)
[2019-09-16] MEDS ORDERED: oxyCODONE 5MG TAB PO PRN (15:30)
[2019-09-16] MEDS ORDERED: ONDANSETRON 4MG/2ML VIAL (J2405) IV PRN (15:30)
[2019-09-16] MEDS: KETOROLAC 30 MG/ML VIAL (J1885) IV PRN (16:15)
[2019-09-16] MEDS: fentaNYL 100 MCG/2 ML INJECTION (J3010) IV PRN ×4 (16:15→16:30)
[2019-09-16] MEDS: ONDANSETRON 4MG/2ML VIAL (J2405) IV PRN (16:15)
[2019-09-16] MEDS ORDERED: EPINEPHrine INJ 1 MG/ML 1ML VIAL ONE (16:56)
[2019-09-16] MEDS ORDERED: ROPIvacaine 0.5% 30 ML INJECTION (J2795 PER 1MG) ONE (16:56)
[2019-09-16] MEDS: ACETAMINOPHEN TAB 650MG DOSE (2X325MG) PO SCH (18:01)
[2019-09-16] MEDS: clonazePAM 0.5 MG TAB PO SCH (20:32)
[2019-09-16] MEDS ORDERED: **NOTE PATIENT COMMENT** MISC XX SCH (21:00)
[2019-09-17] MEDS: HEPARIN SOD (PORCINE) 5000 UNITS/ML VIAL SC SCH ×5 (00:03→20:40)
[2019-09-17] MEDS: oxyCODONE 5MG TAB PO PRN ×5 (00:04→22:22)
[2019-09-17] MEDS: ACETAMINOPHEN TAB 650MG DOSE (2X325MG) PO SCH ×4 (00:04→18:21)
[2019-09-17] MEDS: LR 1,000 ML IV SCH ×2 (00:22→06:49)
[2019-09-17 06:00] VITALS: BP 114/57
[2019-09-17 07:05] LABS: BASO % 0.4 % (0.0-1.0); HEMATOCRIT 31.9 % (36.0-47.0); HEMOGLOBIN 10.4 g/dl (12.0-15.5); LYMPH % 14.6 % (24.0-44.0); MEAN CORPUSCULAR HGB CONC 32.6 g/dl (32.0-36.5); MEAN CORPUSCULAR VOLUME 94.9 fl (80.0-96.0); MONO # 0.6 10^3/uL (0.0-0.8); MONO % 8.3 % (0.0-5.0); NEUTROPHILS # 5.4 10^3/uL (1.5-8.5); NEUTROPHILS % 76.3 % (36.0-66.0); PLATELET COUNT, AUTOMATED 195 10^3/uL (150-450); RED BLOOD COUNT 3.36 10^6/uL (4.00-5.40)
[2019-09-17 07:31] LABS: BLOOD UREA NITROGEN 5 MG/DL (7-18); CALCIUM LEVEL 8.5 MG/DL (8.8-10.2); CARBON DIOXIDE LEVEL 25 MEQ/L (21-32); CHLORIDE LEVEL 112 MEQ/L (98-107); CREATININE FOR GFR 0.75 MG/DL (0.55-1.30); GLOMERULAR FILTRATION RATE > 60.0 (>45); GLUCOSE, FASTING 85 MG/DL (70-100); POTASSIUM SERUM 3.6 MEQ/L (3.5-5.1); SODIUM LEVEL 144 MEQ/L (136-145)
[2019-09-17] MEDS: amLODIPine 5 MG TAB PO SCH (08:58)
[2019-09-17] MEDS: LOSARTAN 50 MG TAB PO SCH (08:58)
[2019-09-17] MEDS: FLUoxetine 20 MG CAP PO SCH (08:59)
[2019-09-17] MEDS ORDERED: NITROGLYCERIN 0.2 MG/HR PATCH TOP SCH (09:00)
[2019-09-17] MEDS ORDERED: METAMUCIL (PSYLLIUM) PACKET PO SCH (09:00)
[2019-09-17 10:00] VITALS: BP 120/62
[2019-09-17] MEDS: KETOROLAC 30 MG/ML VIAL (J1885) IV PRN ×2 (10:54→18:23)
[2019-09-17] MEDS: FIDAXOMICIN 200 MG TAB (DIFICID) PO SCH ×2 (13:38→20:40)
[2019-09-17] MEDS: METAMUCIL (PSYLLIUM) PACKET PO SCH ×2 (13:44→20:39)
[2019-09-17 14:00] VITALS: BP 130/56
[2019-09-17 18:00] VITALS: BP 130/60
[2019-09-17] MEDS: clonazePAM 0.5 MG TAB PO SCH (20:40)
[2019-09-17 22:00] VITALS: BP 129/56
[2019-09-17] MEDS: ONDANSETRON 4MG/2ML VIAL (J2405) IV PRN (22:16)
[2019-09-18] MEDS: ACETAMINOPHEN TAB 650MG DOSE (2X325MG) PO SCH ×4 (00:21→18:12)
[2019-09-18] MEDS: KETOROLAC 30 MG/ML VIAL (J1885) IV PRN ×3 (01:11→21:38)
[2019-09-18 02:00] VITALS: BP 146/68
[2019-09-18 06:00] VITALS: BP 144/58
[2019-09-18] MEDS: HEPARIN SOD (PORCINE) 5000 UNITS/ML VIAL SC SCH ×3 (06:05→21:26)
[2019-09-18 06:08] LABS: BASO % 0.8 % (0.0-1.0); EOS # 0.1 10^3/uL (0.0-0.5); EOS % 2.5 % (0.0-3.0); HEMATOCRIT 31.7 % (36.0-47.0); HEMOGLOBIN 9.9 g/dl (12.0-15.5); LYMPH # 1.7 10^3/uL (1.5-5.0); LYMPH % 34.5 % (24.0-44.0); MEAN CORPUSCULAR HEMOGLOBIN 30.2 pg (27.0-33.0); MEAN CORPUSCULAR HGB CONC 31.2 g/dl (32.0-36.5); MEAN CORPUSCULAR VOLUME 96.6 fl (80.0-96.0); MONO # 0.4 10^3/uL (0.0-0.8); MONO % 8.1 % (0.0-5.0); NEUTROPHILS # 2.6 10^3/uL (1.5-8.5); NEUTROPHILS % 54.1 % (36.0-66.0); PLATELET COUNT, AUTOMATED 168 10^3/uL (150-450); RED BLOOD COUNT 3.28 10^6/uL (4.00-5.40); WHITE BLOOD COUNT 4.8 10^3/uL (4.0-10.0)
[2019-09-18 06:22] LABS: BLOOD UREA NITROGEN 5 MG/DL (7-18); CALCIUM LEVEL 8.8 MG/DL (8.8-10.2); CARBON DIOXIDE LEVEL 27 MEQ/L (21-32); CHLORIDE LEVEL 111 MEQ/L (98-107); CREATININE FOR GFR 0.58 MG/DL (0.55-1.30); GLOMERULAR FILTRATION RATE > 60.0 (>45); GLUCOSE, FASTING 86 MG/DL (70-100); SODIUM LEVEL 143 MEQ/L (136-145)
[2019-09-18] MEDS: METAMUCIL (PSYLLIUM) PACKET PO SCH (09:25)
[2019-09-18] MEDS: FLUoxetine 20 MG CAP PO SCH (09:26)
[2019-09-18] MEDS: FIDAXOMICIN 200 MG TAB (DIFICID) PO SCH ×2 (09:26→21:26)
[2019-09-18] MEDS: LOSARTAN 50 MG TAB PO SCH (09:26)
[2019-09-18] MEDS: oxyCODONE 5MG TAB PO PRN ×2 (09:27→18:12)
[2019-09-18] MEDS: amLODIPine 5 MG TAB PO SCH (09:27)
[2019-09-18 10:00] VITALS: BP 144/59
[2019-09-18] MEDS: LR 1,000 ML IV SCH (10:58)
[2019-09-18] MEDS: ALVIMOPAN 12 MG CAPSULE (ENTEREG) PO SCH ×2 (11:03→21:26)
[2019-09-18] MEDS: MORPHINE 4 MG/ML 1ML VIAL/SYRINGE (J2270) IV PRN (13:56)
[2019-09-18 14:00] VITALS: BP 141/59
[2019-09-18 18:00] VITALS: BP 149/64
[2019-09-18] MEDS: ONDANSETRON 4MG/2ML VIAL (J2405) IV PRN (18:15)
[2019-09-18] MEDS: clonazePAM 0.5 MG TAB PO SCH (21:27)
[2019-09-18 22:00] VITALS: BP 161/72
[2019-09-19] MEDS: ACETAMINOPHEN TAB 650MG DOSE (2X325MG) PO SCH ×4 (00:13→18:23)
[2019-09-19] MEDS: LR 1,000 ML IV SCH ×2 (05:04→06:08)
[2019-09-19 06:00] VITALS: BP 158/78
[2019-09-19] MEDS: HEPARIN SOD (PORCINE) 5000 UNITS/ML VIAL SC SCH ×3 (06:08→21:43)
[2019-09-19 06:13] LABS: BASO % 0.7 % (0.0-1.0); EOS # 0.2 10^3/uL (0.0-0.5); HEMATOCRIT 33.4 % (36.0-47.0); HEMOGLOBIN 10.6 g/dl (12.0-15.5); LYMPH # 1.4 10^3/uL (1.5-5.0); MEAN CORPUSCULAR HEMOGLOBIN 30.4 pg (27.0-33.0); MEAN CORPUSCULAR HGB CONC 31.7 g/dl (32.0-36.5); MEAN CORPUSCULAR VOLUME 95.7 fl (80.0-96.0); MONO # 0.4 10^3/uL (0.0-0.8); NEUTROPHILS # 2.6 10^3/uL (1.5-8.5); NEUTROPHILS % 57.1 % (36.0-66.0); PLATELET COUNT, AUTOMATED 176 10^3/uL (150-450); RED BLOOD COUNT 3.49 10^6/uL (4.00-5.40); WHITE BLOOD COUNT 4.5 10^3/uL (4.0-10.0)
[2019-09-19 06:30] LABS: BLOOD UREA NITROGEN 6 MG/DL (7-18); CALCIUM LEVEL 9.3 MG/DL (8.8-10.2); CARBON DIOXIDE LEVEL 30 MEQ/L (21-32); CHLORIDE LEVEL 107 MEQ/L (98-107); CREATININE FOR GFR 0.63 MG/DL (0.55-1.30); GLOMERULAR FILTRATION RATE > 60.0 (>45); GLUCOSE, FASTING 105 MG/DL (70-100); POTASSIUM SERUM 3.8 MEQ/L (3.5-5.1); SODIUM LEVEL 142 MEQ/L (136-145)
[2019-09-19] MEDS: FIDAXOMICIN 200 MG TAB (DIFICID) PO SCH ×2 (09:27→21:43)
[2019-09-19] MEDS: METAMUCIL (PSYLLIUM) PACKET PO SCH (09:27)
[2019-09-19] MEDS: KETOROLAC 30 MG/ML VIAL (J1885) IV PRN ×2 (09:27→18:24)
[2019-09-19] MEDS: FLUoxetine 20 MG CAP PO SCH (09:28)
[2019-09-19] MEDS: ALVIMOPAN 12 MG CAPSULE (ENTEREG) PO SCH ×2 (09:28→21:43)
[2019-09-19] MEDS: amLODIPine 5 MG TAB PO SCH (09:29)
[2019-09-19] MEDS: LOSARTAN 50 MG TAB PO SCH (09:29)
[2019-09-19] MEDS: oxyCODONE 5MG TAB PO PRN ×2 (11:41→21:43)
[2019-09-19 14:00] VITALS: BP 152/61
[2019-09-19] MEDS: MORPHINE 4 MG/ML 1ML VIAL/SYRINGE (J2270) IV PRN (14:18)
--- NOTE | 2019-09-19 21:26 | ROOPDOC ---
[facility] Report Of Operation Report of Operation DATE OF PROCEDURE: 09/16/19 PREPROCEDURE DIAGNOSES: recurrent diverticulitis. POSTPROCEDURE DIAGNOSES: recurrent diverticulitis. PROCEDURE: Robotic-assisted laparoscopic sigmoid colectomy. SURGEON: Edgar Munson MD RETURN TO FACTORY CLERK: David Rosa DO ANESTHESIA: General anesthesia. ESTIMATED BLOOD LOSS: Approximately 40 mL. COMPLICATIONS: None. REMARKS: Patient is a 69-year-old female who was an recurrent bouts of acute diverticulitis treated with antibiotics and subsequently developed C. difficile colitis and has had recurrence of C. difficile colitis. She had fecal transplant last week and currently is maintained on Dificid. She continues to complain of left lower quadrant pain. She is brought today for a planned sigmoid colectomy. PROCEDURE NOTE: There is a well-defined area on her sigmoid: Roughly about 6-7 cm that is hard, bulky and chronically thickened tissues adhered to the left lateral abdominal wall and upper portion of the pelvis where she mostly forms her diverticulitis. She does have extensive diverticulosis and scattered diverticulosis throughout her colon on colonoscopy. DESCRIPTION OF PROCEDURE: Patient received cefotetan 2 g IV and metronidazole 500 mg IV preoperatively for wound prophylaxis. She underwent mechanical and oral antibiotic bowel prep last night. She received 5000 units of heparin subcutaneously for DVT prophylaxis and Entereg 12 mg by mouth. She was brought to the operating room. General endotracheal anesthesia was started without any complications. Patient is placed on lithotomy position. A Escalante catheter was placed. Her abdomen and perineum is adequately prepped and draped in the usual sterile fashion. .We paused for a surgical timeout using both pre-incision safety checklist to verify correct patient, procedure site and additional clinical information prior to be ginning the procedure. I initially tried entered the abdomen with the right upper quadrant incision via a Veress needle. Intra-abdominal placement confirmed with saline drop technique. Using the same incision a 5 mm port is placed under direct vision of the laparoscope. CO2 insufflation then started to pressure 15 mmHg. Initial diagnostic laparoscopy was then performed. She was placed on a 20 Trendelenburg, 8 right lateral decubitus to allow bowels to retract away from the lower abdomen and pelvis. Under direct visualization of the robotic trochars were placed in an oblique manner starting about 2 cm medial to the right anterior superior iliac coming towards the left upper quadrant subcostal space. The 12 mm taper trocar was placed at the right lower quadrant area. 3 other 8 mm trochars were placed. I retracted the small bowel away from the operative field. The sigmoid is noted to be adhered to the anterior abdominal wall upper pelvic area. There seems to be limited area within the sigmoid that is hardened, bulky. The descending colon has scattered areas of diverticulosis but does not seem to be involved. The da Melvin robot tower is then maneuvered into place on the patient's right side and the trochars were docked to the robotic arms. The robotic instruments were placed into view. An 8 mm 30 laparoscope, tips up fenestrated grasper, force bipolar forceps and initially laparoscopic scissors connected to a monopolar cautery and then later on vessel sealer was used and 60 mm sure form stapler with a green load was used. I then scrubbed to control of the camera and instruments at the surgeon's console while my child center assistant remains in the field managing the robot, instruments, arms and retraction. I started by mostly bluntly dissecting the sigmoid colon off its attachment to the lower left lateral anterior abdominal wall allow for better entire lateral retraction of the sigmoid colon. Once done, I proceeded with the medial to lateral dissection. The peritoneum overlying the sacral promontory was opened up and this was extended superiorly and inferiorly. With mostly blunt dissection inferior to the course of the superior hemorrhoidal artery, the retroperitoneum, hypogastric nerves were bluntly swept downwards away from the mesentery of the sigmoid colon. The ureter was promptly identified and its course followed and likewise swept away from the mesentery. This was developed to the inferior lateral gutter of the sigmoid colon. After doing this I then switched to the lateral dissection. The peritoneal reflection medial to the white line of Toldt was opened up. This was connected to the prior posterior medial dissection of the mesentery. I then proceeded further medializing the descending colon off its lateral and posterior attachments to the Perry's fascia. This seemed medial and lateral dissection was also developed inferiorly to the level of the rectum. The rectum itself appears free of inflammation. Most of the chronic inflammation and scarring and bulkiness is located at the midportion of the sigmoid colon. Once the upper rectum, sigmoid colon and descending colon was adequately freed up, I then chose my distal site of resection which is at the upper rectum. The mesentery underneath this was divided with the vessel sealing device to create a posterior window behind the colon through the mesentery. Once this was developed the rest of the mesentery of the sigmoid colon was freed up from its remaining attachments to the retroperitoneum. The feeding sigmoidal vessels and superior hemorrhoidal artery was divided to the level of the descending colon. The descending colon is likewise free of inflammation though it does have scattered diverticulosis through its course. I chose this as my proximal area of resection. Patient is allergic to iodinated contrast less of a did not use the ICG dye for perfusion test. At this point I asked Dr. Rosa to perform a limited flexible sigmoidoscopy clear out the remaining stool in the upper rectum specifically. The upper rectum was divided sharply then and likewise the junction of the descending and sigmoid colon was likewise sharply divided with the vessel sealer device. I tried to transanally extract the specimen to avoid a larger abdominal incision. I asked Dr. Rosa to pass a open forceps to retrieve the divided sigmoid colon and the colon itself proved to bulky to be accommodated inside of the rectum, despite dilating the rectum with the 29 mm EEA sizer. Thus I just temporarily left the divided sigmoid colon in place of the pelvis. The anvil of the 29 mm EEA stapler was passed transanally. I then closed the rectal stump with a 45 mm stapler. The anvil is then placed into the stump of the descending colon and secured with a pursestring suture using 20V LOC and cinched tight. This was passed circumferentially twice to secure the anvil in place. Dr. Rosa then transanally passed the stapler and then my direction deployed the spike anterior to the staple line. The anvil and the stapler was assembled and fired and an end-to-end anastomosis was accomplished. A flexible sigmoidoscopy was then performed to visualize the anastomosis. This appears healthy with no active oozing or bleeding. The anastomosis was tested under water with no evidence of leak. At this point I scrubbed back in. I used the right lower quadrant 12 mm port site for my extraction. This was enlarged with a transverse incision and deepened to the abdominal wall. The underlying muscles were divided to enlarge the abdominal wall opening to about 4 cm roughly. A small Juan A wound protection device was placed and the divided sigmoid colon is retrieved. The wound protector was removed and the abdominal wall fascia was closed using 1 Vicryl in a mattress fashion. The subcutaneous tissue was irrigated and approximated with 3-0 Vicryl. The skin was then closed with a running suture of 4-0 Monocryl subcuticularly. The rest of the port sites were removed and the skin incisions closed with 4-0 Monocryl. Dermabond was then used for dressing on the incisions. Patient was then awakened, extubated and brought to recovery room in stable condition. Counts of sponges and instruments were verified as correct. EDGAR MUNSON MD Sep 19, 2019 21:26
--- NOTE | 2019-09-19 21:41 | IPNPDOC ---
Text Note Date of Service The patient was seen on 09/19/19. NOTE Patient reports not having diarrhea anymore but is concerned she might be ge tting constipated. She denies any significant bloating, reports discomfort over the right lower quadrant extraction site. She is only ambulating inside the room. Vital signs reviewed and are stable On examination overall she looks comfortable. No obvious jugular venous distention. She has regular heart rate and rhythm without murmurs. Lungs sounds are clear to auscultation bilaterally. Her abdomen slightly rounded, minimally distended. She has some discomfort on palpation over the right lower quadrant extraction site. There is some ecchymosis underneath the extraction site. Rest of the incisions are clean dry and intact. No significant lower extremity edema Her labs were reviewed and shows no significant leukocytosis. Hemoglobin and hematocrit are stable Impression and plans Recurrent acute diverticulitis, postop day 3 following sigmoid colectomy for recurrent acute diverticulitis Recurrent C. difficile colitis COPD I will maintain her in soft diet for now. I have encouraged her to try the morning though she says she does not have any appetite. I also encouraged her to try to ambulate outside to increase her activity which may make her feel better. I don't detect any signs of any ongoing infection, leak, peritonitis. I think overall her pain control is adequate. She remains on Dificid for her C. difficile colitis. VS,Fishbone, I+O VS, Fishbone, I+O Laboratory Tests 09/19/19 05:48 Vital Signs Date Time Temp Pulse Resp B/P (MAP) Pulse Ox O2 Delivery O2 Flow Rate FiO2 09/19/19 14:28 16 09/19/19 14:00 99.2 66 152/61 (91) 94 Room Air 09/19/19 06:00 2.0 I&O- Last 24 Hours up to 6 AM 09/19/19 06:00 Intake Total 2940 ml Output Total 450 ml Balance 2490 ml NIYAH SALCIDO MD Sep 19, 2019 21:41
[2019-09-19] MEDS: clonazePAM 0.5 MG TAB PO SCH (21:43)
[2019-09-19 22:00] VITALS: BP 151/58
[2019-09-20] MEDS: ACETAMINOPHEN TAB 650MG DOSE (2X325MG) PO SCH ×4 (00:34→18:12)
[2019-09-20 06:00] VITALS: BP 139/50
[2019-09-20] MEDS: HEPARIN SOD (PORCINE) 5000 UNITS/ML VIAL SC SCH ×4 (06:10→21:41)
[2019-09-20 06:58] LABS: BASO % 0.6 % (0.0-1.0); EOS # 0.2 10^3/uL (0.0-0.5); EOS % 4.5 % (0.0-3.0); HEMATOCRIT 32.3 % (36.0-47.0); HEMOGLOBIN 10.5 g/dl (12.0-15.5); LYMPH # 1.1 10^3/uL (1.5-5.0); LYMPH % 24.3 % (24.0-44.0); MEAN CORPUSCULAR HEMOGLOBIN 30.4 pg (27.0-33.0); MEAN CORPUSCULAR HGB CONC 32.5 g/dl (32.0-36.5); MEAN CORPUSCULAR VOLUME 93.6 fl (80.0-96.0); MONO # 0.4 10^3/uL (0.0-0.8); MONO % 7.9 % (0.0-5.0); NEUTROPHILS # 2.9 10^3/uL (1.5-8.5); NEUTROPHILS % 62.3 % (36.0-66.0); PLATELET COUNT, AUTOMATED 174 10^3/uL (150-450); RED BLOOD COUNT 3.45 10^6/uL (4.00-5.40); WHITE BLOOD COUNT 4.7 10^3/uL (4.0-10.0)
[2019-09-20 07:27] LABS: BLOOD UREA NITROGEN 9 MG/DL (7-18); CALCIUM LEVEL 9.1 MG/DL (8.8-10.2); CARBON DIOXIDE LEVEL 29 MEQ/L (21-32); CHLORIDE LEVEL 104 MEQ/L (98-107); CREATININE FOR GFR 0.65 MG/DL (0.55-1.30); GLOMERULAR FILTRATION RATE > 60.0 (>45); GLUCOSE, FASTING 115 MG/DL (70-100); POTASSIUM SERUM 3.7 MEQ/L (3.5-5.1); SODIUM LEVEL 139 MEQ/L (136-145)
--- NOTE | 2019-09-20 10:11 | IPNPDOC ---
Text Note Date of Service The patient was seen on 09/20/19. NOTE Patient is postoperative day #4 after robotic-assisted laparoscopic sigmoid colectomy for recurrent acute diverticulitis. Concomitantly she has recurrent C. difficile colitis. She still complains of pain along the right lower quadrant incision site. She reports a poor to fair appetite. Her nurse reports she finishes about only 25% of her meals though she is drinking adequately. She only ambulates in the room. She is voiding normally. She is passing flatus. She is complaining that she is feeling more constipated now. She denies any bloating nausea or vomiting. On examination, she looks comfortable. She has some mild pale palpebral conjunctiva. Lips are mildly dry. She does not have any obvious jugular venous distention. Her heart rate and rhythm are regular without murmurs. Lungs sounds are clear to auscultation bilaterally without wheezing Abdomen slightly rounded, minimally distended. A lot softer than it was 2 days ago. Minimal discomfort along the right lower quadrant incision site where there is some slight yellowish ecchymosis surrounding the extraction site. Rest of the incisions have Dermabond and are clean, dry and intact. She has some mild edema on the right hand from IV infiltration otherwise lower extremities does not show any significant edema Impression: Recurrent acute diverticulitis postop day 4 status post sigmoid colectomy Recurrent C. difficile colitis COPD I will saline lock her IV fluids. I have spoken to the nurse to try to get her out of bed and ambulate her to the hallways. She feels weak though she feels stable ambulating. Encouraged her to try to increase her oral intake, increase her activity. Most of her complaints are related to the discomfort at the incision sites which does not show any signs of any ongoing infection, drainage. There is some forming ecchymosis around the incision sites that she might have some hematoma underneath. Otherwise rest of the incisions look okay. She is not showing any signs of systemic inflammatory response to suggest anastomotic leakage. All her labs are normal. She would like to stay a few more days. I told her that to do that she must actively try to increase her activity and increase her oral intake. Its looking like she will stay through to the weekend. We will have the nurse get onto her to walk to the hallways. VS,Patricke, I+O VS, Fishbone, I+O Laboratory Tests 09/20/19 06:42 Vital Signs Date Time Temp Pulse Resp B/P (MAP) Pulse Ox O2 Delivery O2 Flow Rate FiO2 09/20/19 06:00 98.6 57 18 139/50 (79) 99 Room Air 09/19/19 21:00 2.0 I&O- Last 24 Hours up to 6 AM 09/20/19 06:00 Intake Total 2180 ml Output Total 0 ml Balance 2180 ml NIYAH SALCIDO MD Sep 20, 2019 10:11
[2019-09-20] MEDS ORDERED: MOM 30ML SUSPENSION UDC PO ONE (11:00)
[2019-09-20] MEDS: SENOKOT S TAB PO SCH ×2 (11:01→21:41)
[2019-09-20] MEDS: METAMUCIL (PSYLLIUM) PACKET PO SCH (11:01)
[2019-09-20] MEDS: FLUoxetine 20 MG CAP PO SCH (11:02)
[2019-09-20] MEDS: ALVIMOPAN 12 MG CAPSULE (ENTEREG) PO SCH ×2 (11:02→21:41)
[2019-09-20] MEDS: FIDAXOMICIN 200 MG TAB (DIFICID) PO SCH ×2 (11:02→21:41)
[2019-09-20] MEDS: KETOROLAC 30 MG/ML VIAL (J1885) IV PRN ×2 (11:03→18:12)
[2019-09-20] MEDS: LOSARTAN 50 MG TAB PO SCH (11:03)
[2019-09-20] MEDS: amLODIPine 5 MG TAB PO SCH (11:03)
[2019-09-20 14:00] VITALS: BP 135/62
[2019-09-20] MEDS: oxyCODONE 5MG TAB PO PRN ×2 (14:52→21:49)
[2019-09-20] MEDS: ONDANSETRON 4MG/2ML VIAL (J2405) IV PRN (18:11)
[2019-09-20] MEDS: CelecoXIB (CeleBREX) 100 MG CAP PO SCH (21:40)
[2019-09-20] MEDS: clonazePAM 0.5 MG TAB PO SCH (21:40)
[2019-09-20 22:00] VITALS: BP 130/80
[2019-09-21] MEDS: ACETAMINOPHEN TAB 650MG DOSE (2X325MG) PO SCH ×5 (00:38→23:39)
[2019-09-21 06:00] VITALS: BP 140/60
[2019-09-21] MEDS: HEPARIN SOD (PORCINE) 5000 UNITS/ML VIAL SC SCH ×3 (06:01→21:31)
[2019-09-21] MEDS: oxyCODONE 5MG TAB PO PRN ×3 (06:02→23:39)
--- NOTE | 2019-09-21 08:47 | IPNPDOC ---
Text Note Date of Service The patient was seen on 09/21/19. NOTE No acute events overnight. Tolerating diet, but not eating much. She feels very weak, and only complaints of and pains at her incisions sites. She is ambulating in the halls without any difficulty, and having small BMs. VSSAF NAD abd - soft, TTP appropriate, nd, incisions c/d/i A) 69y/o female s/p sigmoid resection secondary to c diff and diverticulitis. P) reg diet encourage PO intake ensure TID between meals ambulate will d/c once she feels stronger. Adam Rosa DO VS,Fishbone, I+O VS, Fishbone, I+O Vital Signs Date Time Temp Pulse Resp B/P (MAP) Pulse Ox O2 Delivery O2 Flow Rate FiO2 09/21/19 06:32 16 09/21/19 06:00 99.4 63 140/60 (86) 93 Room Air 09/19/19 21:00 2.0 I&O- Last 24 Hours up to 6 AM 09/21/19 06:00 Intake Total 2050 ml Output Total 775 ml Balance 1275 ml AURELIO ROSA DO Sep 21, 2019 08:47
[2019-09-21] MEDS: SENOKOT S TAB PO SCH ×2 (09:00→21:31)
[2019-09-21] MEDS: LOSARTAN 50 MG TAB PO SCH (09:18)
[2019-09-21] MEDS: ALVIMOPAN 12 MG CAPSULE (ENTEREG) PO SCH ×2 (09:19→21:31)
[2019-09-21] MEDS: amLODIPine 5 MG TAB PO SCH (09:19)
[2019-09-21] MEDS: FLUoxetine 20 MG CAP PO SCH (09:19)
[2019-09-21] MEDS: FIDAXOMICIN 200 MG TAB (DIFICID) PO SCH ×2 (09:19→21:31)
[2019-09-21] MEDS: METAMUCIL (PSYLLIUM) PACKET PO SCH (09:19)
[2019-09-21] MEDS: CelecoXIB (CeleBREX) 100 MG CAP PO SCH ×2 (09:19→21:31)
[2019-09-21] MEDS: ONDANSETRON 4MG/2ML VIAL (J2405) IV PRN ×2 (13:02→23:39)
[2019-09-21 14:00] VITALS: BP 137/61
[2019-09-21] MEDS ORDERED: KETOROLAC 30 MG/ML VIAL (J1885) IV PRN (19:00)
[2019-09-21] MEDS: clonazePAM 0.5 MG TAB PO SCH (21:31)
[2019-09-21 22:00] VITALS: BP 137/57
[2019-09-22] MEDS: ACETAMINOPHEN TAB 650MG DOSE (2X325MG) PO SCH ×3 (05:25→17:25)
[2019-09-22] MEDS: HEPARIN SOD (PORCINE) 5000 UNITS/ML VIAL SC SCH ×3 (05:26→21:13)
[2019-09-22 06:00] VITALS: BP 134/54
--- NOTE | 2019-09-22 09:21 | IPNPDOC ---
Text Note Date of Service The patient was seen on 09/22/19. NOTE No acute events overnight. Tolerating diet, but not eating much. She feels very weak, and still has intermittent nausea and pain at her incision sites. VSSAF NAD abd - soft, TTP appropriate, nd, incisions c/d/i A) 69y/o female s/p sigmoid resection secondary to c diff and diverticulitis. P) reg diet encourage PO intake ensure TID between meals ambulate PT eval for home safety plan for dc home in the am Adam Rosa DO VS,Fishbone, I+O VS, Fishbone, I+O Vital Signs Date Time Temp Pulse Resp B/P (MAP) Pulse Ox O2 Delivery O2 Flow Rate FiO2 09/22/19 06:00 97.5 58 17 134/54 (80) 100 Room Air 09/19/19 21:00 2.0 I&O- Last 24 Hours up to 6 AM 09/22/19 06:00 Intake Total 990 ml Output Total 400 ml Balance 590 ml AURELIO ROSA DO Sep 22, 2019 09:21
[2019-09-22] MEDS ORDERED: IBUPROFEN 600 MG TAB PO PRN (09:30)
[2019-09-22] MEDS: FIDAXOMICIN 200 MG TAB (DIFICID) PO SCH ×2 (09:47→21:14)
[2019-09-22] MEDS: ALVIMOPAN 12 MG CAPSULE (ENTEREG) PO SCH ×2 (09:47→21:14)
[2019-09-22] MEDS: LOSARTAN 50 MG TAB PO SCH (09:48)
[2019-09-22] MEDS: amLODIPine 5 MG TAB PO SCH (09:48)
[2019-09-22] MEDS: SENOKOT S TAB PO SCH ×2 (09:48→21:14)
[2019-09-22] MEDS: CelecoXIB (CeleBREX) 100 MG CAP PO SCH ×2 (09:48→21:14)
[2019-09-22] MEDS: FLUoxetine 20 MG CAP PO SCH (09:48)
[2019-09-22] MEDS: METAMUCIL (PSYLLIUM) PACKET PO SCH (09:49)
[2019-09-22] MEDS: oxyCODONE 5MG TAB PO PRN ×2 (10:03→21:15)
[2019-09-22 14:00] VITALS: BP 138/53
[2019-09-22 20:00] VITALS: BP 126/58
[2019-09-22] MEDS: clonazePAM 0.5 MG TAB PO SCH (21:13)
[2019-09-22] MEDS: ONDANSETRON 4MG/2ML VIAL (J2405) IV PRN (21:13)
[2019-09-23] MEDS: ACETAMINOPHEN TAB 650MG DOSE (2X325MG) PO SCH ×4 (00:02→17:32)
[2019-09-23 06:00] VITALS: BP 113/45
[2019-09-23] MEDS: HEPARIN SOD (PORCINE) 5000 UNITS/ML VIAL SC SCH ×3 (06:05→21:07)
[2019-09-23 09:00] VITALS: BP 115/47
[2019-09-23] MEDS: LOSARTAN 50 MG TAB PO SCH (09:00)
[2019-09-23] MEDS: amLODIPine 5 MG TAB PO SCH (09:00)
[2019-09-23] MEDS: SENOKOT S TAB PO SCH ×2 (09:00→21:00)
[2019-09-23 09:57] VITALS: BP 115/47
[2019-09-23] MEDS: oxyCODONE 5MG TAB PO PRN ×2 (10:08→21:08)
[2019-09-23] MEDS: ONDANSETRON 4MG/2ML VIAL (J2405) IV PRN ×2 (10:08→21:15)
[2019-09-23] MEDS: FIDAXOMICIN 200 MG TAB (DIFICID) PO SCH ×2 (10:09→21:08)
[2019-09-23] MEDS: CelecoXIB (CeleBREX) 100 MG CAP PO SCH ×2 (10:09→21:08)
[2019-09-23] MEDS: FLUoxetine 20 MG CAP PO SCH (10:09)
--- NOTE | 2019-09-23 11:04 | IPNPDOC ---
Text Note Date of Service The patient was seen on 09/23/19. NOTE No acute events overnight. Tolerating diet, but not eating much. She feels very weak, and still has intermittent nausea and pain. However, now she is saying the pain occurs more after she eats and is in the RUQ. She also has nausea when she eats. VSSAF NAD abd - soft, TTP in the RUQ this am which is new, nd, incisions c/d/i A) 69y/o female s/p sigmoid resection secondary to c diff and diverticulitis. RUQ pains P) reg diet encourage PO intake ensure TID between meals ambulate US gallbladder labs Adam Rosa DO VS,Fishbone, I+O VS, Fishbone, I+O Vital Signs Date Time Temp Pulse Resp B/P (MAP) Pulse Ox O2 Delivery O2 Flow Rate FiO2 09/23/19 10:08 16 95 Room Air 09/23/19 09:57 52 115/47 (69) 09/23/19 06:00 98.5 09/19/19 21:00 2.0 I&O- Last 24 Hours up to 6 AM 09/23/19 06:00 Intake Total 1350 ml Output Total 150 ml Balance 1200 ml AURELIO ROSA DO Sep 23, 2019 11:04
[2019-09-23 11:49] LABS: HEMATOCRIT 33.9 % (36.0-47.0); HEMOGLOBIN 10.9 g/dl (12.0-15.5); MEAN CORPUSCULAR HEMOGLOBIN 30.4 pg (27.0-33.0); MEAN CORPUSCULAR HGB CONC 32.2 g/dl (32.0-36.5); MEAN CORPUSCULAR VOLUME 94.4 fl (80.0-96.0); PLATELET COUNT, AUTOMATED 231 10^3/uL (150-450); RED BLOOD COUNT 3.59 10^6/uL (4.00-5.40); WHITE BLOOD COUNT 5.3 10^3/uL (4.0-10.0)
[2019-09-23] MEDS: ALVIMOPAN 12 MG CAPSULE (ENTEREG) PO SCH ×2 (11:53→21:08)
[2019-09-23 12:16] LABS: ALBUMIN 2.7 GM/DL (3.2-5.2); ALT/SGPT 35 U/L (12-78); BILIRUBIN,TOTAL 0.2 MG/DL (0.2-1.0); BLOOD UREA NITROGEN 12 MG/DL (7-18); CALCIUM LEVEL 9.7 MG/DL (8.8-10.2); CARBON DIOXIDE LEVEL 26 MEQ/L (21-32); CHLORIDE LEVEL 107 MEQ/L (98-107); CREATININE FOR GFR 0.63 MG/DL (0.55-1.30); GLOMERULAR FILTRATION RATE > 60.0 (>45); GLUCOSE, FASTING 122 MG/DL (70-100); POTASSIUM SERUM 4.4 MEQ/L (3.5-5.1); SODIUM LEVEL 140 MEQ/L (136-145); TOTAL PROTEIN 6.9 GM/DL (6.4-8.2)
[2019-09-23 14:00] VITALS: BP 119/47
--- NOTE | 2019-09-23 17:16 | REP ---
Clinical: Acute right upper quadrant abdominal pain. Technique: Young scale ultrasound using curved array transducer. Findings: The liver and pancreas are normal in contour, size, and echogenicity without focal hepatic or pancreatic lesions identified. Subcentimeter solitary right hepatic and left hepatic simple cysts noted. The gallbladder demonstrates too small 4 mm echogenic foci without shadowing possibly representing small sludge balls or polyps. No discrete gallstones, wall thickening or pericholecystic fluid. No biliary ductal dilatation is appreciated, and the common bile duct measures 7.0 mm diameter. The right kidney is normal in reniform shape without hydronephrosis and measures 9.7 x 4.6 x 5.4 cm. No ascites. Visualized portions of the abdominal aorta normal. Impression: 1. Small simple hepatic cysts. 2. 4 mm gallbladder polyp versus sludge ball. Otherwise normal gallbladder and biliary system. Electronically Signed by London Amaya MD 09/23/2019 05:07 P
[2019-09-23] MEDS: clonazePAM 0.5 MG TAB PO SCH (21:08)
[2019-09-23 22:00] VITALS: BP 118/48
[2019-09-24] MEDS: ACETAMINOPHEN TAB 650MG DOSE (2X325MG) PO SCH ×4 (00:31→18:47)
[2019-09-24] MEDS: HEPARIN SOD (PORCINE) 5000 UNITS/ML VIAL SC SCH ×3 (05:49→22:07)
[2019-09-24 06:00] VITALS: BP_SYST 117; BP_SYST 17; BP_DIAS 49
--- NOTE | 2019-09-24 08:31 | IPNPDOC ---
Text Note Date of Service The patient was seen on 09/24/19. NOTE No acute events overnight. Tolerating diet, but not eating much. She does feel slightly better today than yesterday. She is planning to work with PT today. VSSAF NAD abd - soft, TTP mild near incisions only, nd, incisions c/d/i labs - reviewed, no signs of elevated LFTs US gallbladder - small sludge, no other abnormalities A) 69y/o female s/p sigmoid resection secondary to c diff and diverticulitis. P) reg diet encourage PO intake ensure TID between meals ambulate plan on dc in the am if cleared by PT Adam Rosa DO VS,Fishbone, I+O VS, Fishbone, I+O Laboratory Tests 09/23/19 11:38 Vital Signs Date Time Temp Pulse Resp B/P (MAP) Pulse Ox O2 Delivery O2 Flow Rate FiO2 09/24/19 06:00 98.5 57 17 117/49 (71) 98 Nasal Cannula 2.0 I&O- Last 24 Hours up to 6 AM 09/24/19 05:59 Intake Total 900 ml Output Total 150 ml Balance 750 ml AURELIO ROSA DO Sep 24, 2019 08:31
[2019-09-24] MEDS: amLODIPine 5 MG TAB PO SCH ×2 (09:00→09:14)
[2019-09-24] MEDS: LOSARTAN 50 MG TAB PO SCH ×2 (09:00→09:13)
[2019-09-24] MEDS: SENOKOT S TAB PO SCH ×2 (09:12→21:00)
[2019-09-24] MEDS: FIDAXOMICIN 200 MG TAB (DIFICID) PO SCH ×2 (09:13→22:06)
[2019-09-24] MEDS: ALVIMOPAN 12 MG CAPSULE (ENTEREG) PO SCH ×2 (09:13→22:06)
[2019-09-24] MEDS: CelecoXIB (CeleBREX) 100 MG CAP PO SCH ×2 (09:16→22:06)
[2019-09-24] MEDS: FLUoxetine 20 MG CAP PO SCH (09:16)
[2019-09-24] MEDS: oxyCODONE 5MG TAB PO PRN (10:25)
[2019-09-24 14:00] VITALS: BP 122/52
[2019-09-24] MEDS: ONDANSETRON 4MG/2ML VIAL (J2405) IV PRN (14:00)
[2019-09-24] MEDS: ONDANSETRON 4 MG TAB (S0181) PO PRN (14:29)
[2019-09-24 22:00] VITALS: BP 120/59
[2019-09-24] MEDS: clonazePAM 0.5 MG TAB PO SCH (22:06)
[2019-09-25] MEDS: ACETAMINOPHEN TAB 650MG DOSE (2X325MG) PO SCH ×4 (00:15→17:53)
[2019-09-25 06:00] VITALS: BP 122/57
[2019-09-25] MEDS: HEPARIN SOD (PORCINE) 5000 UNITS/ML VIAL SC SCH ×3 (06:22→21:41)
[2019-09-25] MEDS: SENOKOT S TAB PO SCH ×2 (09:00→21:41)
[2019-09-25] MEDS: FIDAXOMICIN 200 MG TAB (DIFICID) PO SCH ×2 (09:13→21:41)
[2019-09-25] MEDS: FLUoxetine 20 MG CAP PO SCH (09:13)
[2019-09-25] MEDS: amLODIPine 5 MG TAB PO SCH (09:14)
[2019-09-25] MEDS: LOSARTAN 50 MG TAB PO SCH (09:14)
[2019-09-25] MEDS: CelecoXIB (CeleBREX) 100 MG CAP PO SCH (09:14)
[2019-09-25] MEDS: METAMUCIL (PSYLLIUM) PACKET PO SCH (09:40)
[2019-09-25] MEDS ORDERED: IBUPROFEN 600 MG TAB PO PRN (10:45)
--- NOTE | 2019-09-25 10:47 | IPNPDOC ---
Text Note Date of Service The patient was seen on 09/25/19. NOTE No acute events overnight. Tolerating diet, but not eating much still. She did clear physical therapy to go home, but with home services. She does not feel like the celebrex is doing anything. VSSAF NAD abd - soft, TTP mild near incisions only, nd, incisions c/d/i US gallbladder - small sludge, no other abnormalities A) 69y/o female s/p sigmoid resection secondary to c diff and diverticulitis. P) reg diet encourage PO intake ensure TID between meals ambulate switch PO pain meds plan on dc in the am with home PT Adam Rosa DO VS,Fishbone, I+O VS, Fishbone, I+O Vital Signs Date Time Temp Pulse Resp B/P (MAP) Pulse Ox O2 Delivery O2 Flow Rate FiO2 09/25/19 06:00 98.9 55 18 122/57 (78) 97 Nasal Cannula 3.0 I&O- Last 24 Hours up to 6 AM 09/25/19 06:00 Intake Total 800 ml Output Total 850 ml Balance -50 ml AURELIO ROSA DO Sep 25, 2019 10:47
[2019-09-25 14:00] VITALS: BP 124/54
[2019-09-25] MEDS: NORCO, ANEXSIA 5/325MG TABLET (HYDROcodone/ACETAMINOPHEN) PO PRN ×2 (15:44→21:45)
[2019-09-25] MEDS: ONDANSETRON 4 MG TAB (S0181) PO PRN ×2 (15:44→21:45)
[2019-09-25] MEDS ORDERED: HYDROCORTISONE 1% CREAM 30 GM TOP PRN (20:00)
[2019-09-25] MEDS ORDERED: diphenhydrAMINE 25 MG CAP PO ONE (21:00)
[2019-09-25] MEDS: clonazePAM 0.5 MG TAB PO SCH (21:41)
[2019-09-25 22:00] VITALS: BP 133/57
[2019-09-26] MEDS: ACETAMINOPHEN TAB 650MG DOSE (2X325MG) PO SCH ×2 (00:57→06:09)
[2019-09-26 06:00] VITALS: BP 137/78
[2019-09-26] MEDS: HEPARIN SOD (PORCINE) 5000 UNITS/ML VIAL SC SCH (06:08)
[2019-09-26] MEDS ORDERED: IBUP-1022 PO (08:13)
[2019-09-26] MEDS ORDERED: HYDR1CR TOP (08:13)
[2019-09-26] MEDS ORDERED: HYDR-4571 PO (08:13)
[2019-09-26] MEDS ORDERED: ONDA-83 PO (08:13)
[2019-09-26] MEDS: SENOKOT S TAB PO SCH (08:24)
[2019-09-26] MEDS ORDERED: OMEPRAZOLE 20 MG CAP PO SCH (09:00)
[2019-09-26] MEDS: FIDAXOMICIN 200 MG TAB (DIFICID) PO SCH (09:07)
[2019-09-26] MEDS: FLUoxetine 20 MG CAP PO SCH (09:07)
[2019-09-26] MEDS: LOSARTAN 50 MG TAB PO SCH (09:07)
[2019-09-26] MEDS: METAMUCIL (PSYLLIUM) PACKET PO SCH (09:08)
[2019-09-26] MEDS: amLODIPine 5 MG TAB PO SCH (09:08)
--- NOTE | 2019-10-15 10:40 | DS.PDOC ---
Discharge Summary General Date of Admission Sep 16, 2019 at 09:47 Date of Discharge 09/26/2019 Attending Physician: NIYAH SALCIDO MD Discharge Summary PROCEDURES PERFORMED DURING STAY: Robotic-assisted laparoscopic sigmoid colectomy. ADMITTING DIAGNOSES: 1. Recurrent acute diverticulitis 2. Recurrent C. difficile colitis 3. COPD. DISCHARGE DIAGNOSES: 1. Recurrent acute diverticulitis status post sigmoid colectomy 2. Recurrent C. difficile colitis on this visit 4. COPD stable. COMPLICATIONS/CHIEF COMPLAINT: Recurrent Diverticulitis. HISTORY OF PRESENT ILLNESS: Patient is admitted to the hospital following a planned sigmoid colectomy for her recurrent acute diverticulitis. Last week she had a fecal transplant done by Dr. Hilliard and she remains on Dificid. She has there were between 3-5 bowel movements a day. HOSPITAL COURSE: Patient underwent a planned sigmoid colectomy using the [employer] robot platform. Procedure went accordingly. She was successfully extubated and she was [facility] the [facility]. She was started on liberal intake of clear liquids. For pain control she was getting Toradol IV on scheduled doses, morphine and Percocets on as needed basis. Her [place] catheter was discontinued on postop day 1. She remained stable but postoperatively was slow to mobilize. She was also initially having multiple loose bowel movements probably from her C. difficile colitis but later on this slowed down. Throughout her postoperative hospital stay problem is trying to moderate her to get up and walk likewise motivate her to increase her oral intake. But overall she did well. She has some moderate discomfort around the right lower quadrant extraction site and this developed some ecchymosis probably a small amount of hematoma contributing to the discomfort but otherwise no signs of infection. Physical therapy was involved to try to help mobilize her and she had several days of sessions with them Ensure was added to supplement her oral intake On the the day of discharge she is comfortable, tolerating regular food still eating only small amounts at a time but denies any nausea or vomiting. She actually had improved her diarrhea through the course of the admission. She has been afebrile throughout and there has been no problems with her incisions.. DISCHARGE MEDICATIONS: Please see below. ALLERGIES: Please see below. PHYSICAL EXAMINATION ON DISCHARGE: VITAL SIGNS: Please see below. GENERAL: Comfortable HEENT: Normocephalic. [place] palpebral conjunctiva, anicteric sclerae NECK: No jugular venous distention CARDIOVASCULAR EXAMINATION: Regular heart rate and rhythm without murmurs RESPIRATORY EXAMINATION: Clear breath sounds auscultation bilaterally no wheezing ABDOMINAL EXAMINATION: Slightly rounded abdomen, minimally distended. Right lower quadrant extraction site with slight ecchymosis. Rest reports sites are intact covered with Dermabond. Minimally tender over the right lower quadrant. Nontender in the left lower quadrant EXTREMITIES: No significant lower extremity edema SKIN: No skin rashes NEUROLOGICAL EXAMINATION: Awake, alert and oriented ambulating normally LABORATORY DATA: Please see below. IMAGING: Gallbladder ultrasound PROGNOSIS: Good ACTIVITY: Light activity ambulate as tolerated. DIET: Regular diet as tolerated DISCHARGE PLAN: Patient is discharged home with arrange visiting nurses. She'll follow-up with me in 1 week DISPOSITION: Home, Self-Care. DISCHARGE INSTRUCTIONS: 1. As above. ITEMS TO FOLLOWUP ON ON OUTPATIENT: 1. Pathology has been reviewed with the patient the chest shows diverticulitis and diverticulosis. DISCHARGE CONDITION: Stable. TIME SPENT ON DISCHARGE: Greater than 30 minutes. Discharge Medications Scheduled Amlodipine Besylate (Amlodipine Besylate) 5 Mg Tablet, 5 MG PO DAILY, (Reported) Clonazepam (Clonazepam) 0.5 Mg Tablet, 0.5 MG PO QHS, (Reported) Clopidogrel Bisulfate (Clopidogrel) 75 Mg Tablet, 75 MG PO DAILY, (Reported) Donepezil HCl (Donepezil HCl) 10 Mg Tablet, 10 MG PO BID, (Reported) Fidaxomicin (Dificid) 200 Mg Tablet, 200 MG PO BID, (Reported) Fluoxetine Hcl (Fluoxetine HCl) 40 Mg Capsule, 40 MG PO DAILY, (Reported) Furosemide (Furosemide) 20 Mg Tablet, 20 MG PO 3XW, (Reported) MON/WED/FRI Losartan Potassium (Losartan Potassium) 100 Mg Tablet, 100 MG PO DAILY, (Reported) Nitroglycerin (Nitroglycerin Patch) 0.2 Mg/Hr Patch.td24, 0.2 MG TOP DAILY, (Reported) ON 12 HOURS, OFF 12 HOURS Scheduled PRN Acetaminophen (Acetaminophen) 325 Mg Tablet, 650 MG PO Q4H PRN for PAIN, (Reported) Albuterol Sulfate (Ventolin Hfa) 18 Gm Hfa.aer.ad, 2 PUFF INH Q4-6HP PRN for wheezing, (Reported) Dicyclomine HCl (Dicyclomine HCl) 20 Mg Tablet, 20 MG PO BID PRN for ABDOMINAL PAIN, (Reported) Hydrocodone/Acetaminophen (Hydrocodone-Acetamin 5-325 mg) 1 Each Tablet, 1 TAB PO Q6HP PRN for MILD/MODERATE PAIN (PS 1-7) Hydrocortisone (Hydrocortisone) 28 Gm Cream..g., 0 DOSE TOP Q6HP PRN for ITCHING Ibuprofen (Ibuprofen) 600 Mg Tablet, 600 MG PO Q6HP PRN for MODERATE PAIN (PS 5- 7) Ondansetron HCl (Ondansetron HCl) 4 Mg Tablet, 4 MG PO BIDP PRN for NAUSEA Allergies Coded Allergies: Iodinated Contrast Media (Verified Allergy, Severe, hot, hard to breathe, 09/09/19) Penicillins (Verified Allergy, Severe, ANAPHYLAXIS, 09/09/19) Shrimp (Verified Allergy, Unknown, 09/09/19) NIYAH SALCIDO MD Oct 15, 2019 10:40
== END 2019-09-26 13:03 | disposition home or self-care (01) | DRG 330 ==
LOC: M OR 09:47 → M MSPAV 17:14
PROVIDERS: ADMIT Surgery; ATTEND Surgery
PROC: 8E0W4CZ Robotic Assisted Procedure of Trunk Region, Percutaneous Endoscopic Approach (ICD-10-PCS; 2019-09-16)
PROC: 0DBN4ZZ Excision of Sigmoid Colon, Percutaneous Endoscopic Approach (ICD-10-PCS; principal; 2019-09-16 11:30)
DX: K57.32 Diverticulitis of large intestine without perforation or abscess without bleeding (principal); A04.71 Enterocolitis due to Clostridium difficile, recurrent; I10 Essential (primary) hypertension; J44.9 Chronic obstructive pulmonary disease, unspecified; I25.2 Old myocardial infarction; Z87.891 Personal history of nicotine dependence; Z88.0 Allergy status to penicillin; Z91.041 Radiographic dye allergy status; Z91.013 Allergy to seafood; Z79.899 Other long term (current) drug therapy

== ENCOUNTER → 2022-10-27 | Outpatient (REF) | payer MEDICARE, BC ==
[~2022-10-27] MED LIST changes: +AMLO1TAB24 PO; -AMLO5TAB6 PO; -DICY20TA11 PO; +DICY20TA20 PO; +HYDR-4571 PO; +HYDR1CR TOP; +IBUP-1022 PO; -LIDOCAINE 1% MDV 20ML VIAL SQ PRN; +LOSA100T45 PO; -LOSA100T50 PO; +PANT40TA29 PO; -PANT40TA3 PO
== END ==
LOC: M LAB REF 14:19
PROVIDERS: ATTEND Otolaryngology
DX: H92.11 Otorrhea, right ear (principal)

== ENCOUNTER → 2022-12-28 | Outpatient (REF) | payer MEDICARE, BC | LOC: M LAB REF 14:34 | PROVIDERS: ATTEND Internal Medicine Gastroenterology | DX: R19.7 Diarrhea, unspecified (principal) ==

== ENCOUNTER 2023-02-07 08:58 | Day surgery (SDC) | payer MEDICARE, BC ==
[~2023-02-07] VITALS: Ht 154.9 cm; Wt 62.6 kg
[~2023-02-07 08:58] MED LIST changes: -LOSA100T45 PO; +LOSA100T46 PO; +NS 1,000 ML IV ONE; +ranexa PO
[2023-02-07] MEDS ORDERED: LIDOCAINE 2% 100MG/5ML SDV (FOR ANES.) As Ordered ONE (10:38)
[2023-02-07] MEDS ORDERED: propofoL 200 MG/20 ML VIAL As Ordered ONE (10:38)
[2023-02-07 11:30] VITALS: BP 182/78
== END 2023-02-07 11:41 | disposition home or self-care (01) ==
LOC: M OPP 08:58
PROVIDERS: ATTEND Internal Medicine Gastroenterology
DX: D12.2 Benign neoplasm of ascending colon (principal); D12.4 Benign neoplasm of descending colon; K64.8 Other hemorrhoids; K57.30 Diverticulosis of large intestine without perforation or abscess without bleeding; Z98.0 Intestinal bypass and anastomosis status; Z79.02 Long term (current) use of antithrombotics/antiplatelets; Z79.1 Long term (current) use of non-steroidal anti-inflammatories (NSAID); Z79.51 Long term (current) use of inhaled steroids; Z79.891 Long term (current) use of opiate analgesic; Z79.899 Other long term (current) drug therapy; Z88.0 Allergy status to penicillin; Z91.013 Allergy to seafood; Z91.041 Radiographic dye allergy status

== ENCOUNTER → 2023-11-20 | Outpatient (CLI) | payer MEDICARE, BC ==
[~2023-11-20] MED LIST changes: +ATOR1TAB21 PO; +FLUO10CA18 PO; +LIDOCAINE 1% MDV 20ML VIAL As Ordered ONE; +MEMA10TA19 PO; +MIDAZOLAM INJ 2MG/2ML VIAL As Ordered ONE; -NS 1,000 ML IV ONE; +RANO10002 PO; +VALS1TAB66 PO; +fentaNYL 100 MCG/2 ML INJECTION As Ordered ONE
[2023-11-20 08:17] VITALS: TEMP 97.6
[2023-11-20 08:36] LABS: HEMATOCRIT 39.2 % (36.0-47.0); HEMOGLOBIN 12.7 g/dl (12.0-15.5); MEAN CORPUSCULAR HEMOGLOBIN 29.6 pg (27.0-33.0); MEAN CORPUSCULAR HGB CONC 32.4 g/dl (32.0-36.5); MEAN CORPUSCULAR VOLUME 91.4 fl (80.0-96.0); PLATELET COUNT, AUTOMATED 323 10^3/uL (150-450); RED BLOOD COUNT 4.29 10^6/uL (4.00-5.40)
[2023-11-20 08:47] LABS: INR 1.07; PROTHROMBIN TIME 13.6 SECONDS (12.5-14.5)
[2023-11-20] MEDS: NS 1,000 ML IV SCH (08:50)
[2023-11-20 11:30] VITALS: BP 124/58; O2SAT 93
== END ==
LOC: M IRPRO 08:05
PROVIDERS: ATTEND Physician Assistant
DX: C64.1 Malignant neoplasm of right kidney, except renal pelvis (principal)
CPT/HCPCS: 50200; 76942; 85027; 85610; 88305; 99152; J2250; J3010

== ENCOUNTER 2023-11-28 17:46 | Inpatient (IN) | payer MEDICARE, BC ==
[~2023-11-28] VITALS: Ht 154.9 cm; Wt 60.0 kg
[~2023-11-28 17:46] MED LIST changes: -LIDOCAINE 1% MDV 20ML VIAL As Ordered ONE; -MIDAZOLAM INJ 2MG/2ML VIAL As Ordered ONE; -fentaNYL 100 MCG/2 ML INJECTION As Ordered ONE
[2023-11-28] MEDS: MORPHINE 4 MG/ML 1ML VIAL IV ONE (19:47)
[2023-11-28] MEDS: ONDANSETRON 4MG 2ML VIAL IV ONE (19:51)
[2023-11-28 20:09] LABS: BASO % 0.5 % (0.0-1.0); EOS # 0.1 10^3/uL (0.0-0.5); EOS % 1.1 % (0.0-3.0); HEMOGLOBIN 11.4 g/dl (12.0-15.5); LYMPH # 0.9 10^3/uL (1.5-5.0); LYMPH % 10.5 % (24.0-44.0); MEAN CORPUSCULAR HEMOGLOBIN 29.1 pg (27.0-33.0); MEAN CORPUSCULAR HGB CONC 32.6 g/dl (32.0-36.5); MEAN CORPUSCULAR VOLUME 89.3 fl (80.0-96.0); MONO # 0.6 10^3/uL (0.0-0.8); MONO % 7.2 % (2.0-8.0); NEUTROPHILS # 6.8 10^3/uL (1.5-8.5); NEUTROPHILS % 80.3 % (36.0-66.0); PLATELET COUNT, AUTOMATED 305 10^3/uL (150-450); RED BLOOD COUNT 3.92 10^6/uL (4.00-5.40); WHITE BLOOD COUNT 8.5 10^3/uL (4.0-10.0)
[2023-11-28 20:18] LABS: CK-MB VALUE MASS < 1.0 NG/ML (<3.6); LIPASE 18 U/L (12-53)
[2023-11-28 20:20] LABS: ALBUMIN 2.6 G/DL (3.2-5.2); ALKALINE PHOSPHATASE 63 U/L (46-116); ALT/SGPT 13 U/L (7.0-40); AST/SGOT 13 U/L (<34); BILIRUBIN,DIRECT 0.2 MG/DL (<0.4); BILIRUBIN,TOTAL 0.5 MG/DL (0.3-1.2); BLOOD UREA NITROGEN 12 MG/DL (9-23); CALCIUM LEVEL 8.9 MG/DL (8.3-10.6); CARBON DIOXIDE LEVEL 26 MMOL/L (20-31); CHLORIDE LEVEL 100 MMOL/L (98-107); CPK CREATINE PHOSPHOKINASE 22 U/L (34-145); GLOMERULAR FILTRATION RATE > 60.0 (>39); GLUCOSE, FASTING 102 MG/DL (74-106); MB/CK RELATIVE INDEX 4.54 (< OR =4); SODIUM LEVEL 134 MMOL/L (136-145); TOTAL PROTEIN 6.5 G/DL (5.7-8.2)
[2023-11-28 20:29] LABS: INR 1.13; PARTIAL THROMBOPLASTIN TIME 27.9 SECONDS (24.8-34.2); PROTHROMBIN TIME 14.2 SECONDS (12.5-14.5)
[2023-11-28 20:52] LABS: PROCALCITONIN 0.09 ng/ml
[2023-11-28 22:35] LABS: CK-MB VALUE MASS < 1.0 NG/ML (<3.6)
[2023-11-28 22:39] LABS: CPK CREATINE PHOSPHOKINASE 31 U/L (34-145); MB/CK RELATIVE INDEX 3.22 (< OR =4)
[2023-11-28] MEDS: LevoFLOXacin IV 750 MG in IV 1 EA IV ONE (22:40)
[2023-11-28] MEDS ORDERED: MOM 30ML SUSPENSION UDC PO PRN (23:25)
[2023-11-28] MEDS ORDERED: FLUID PLACE HOLDER IV ONE (23:25)
[2023-11-28] MEDS ORDERED: VANCOMYCIN HCL IV ONE (23:25)
[2023-11-28] MEDS ORDERED: VANCOMYCIN HCL 890 MG in IV FLUID PLACE HOLDER 1 EA IV SCH (23:25)
[2023-11-28] MEDS ORDERED: ACETAMINOPHEN TAB 650MG DOSE (2X325MG) PO PRN (23:25)
[2023-11-29] MEDS ORDERED: ATOR40TA75 PO (00:10)
[2023-11-29] MEDS ORDERED: ALBU8.5H INH (00:10)
[2023-11-29] MEDS ORDERED: RANO500T2 PO (00:10)
[2023-11-29] MEDS ORDERED: ACET-897 PO (00:10)
[2023-11-29] MEDS ORDERED: ONDA-195 PO (00:10)
[2023-11-29] MEDS ORDERED: NITR4TASL SL (00:10)
[2023-11-29] MEDS ORDERED: HOME MED LIST COMPLETE! XX SCH (00:15)
[2023-11-29 00:35] VITALS: BP 136/58; TEMP 99; O2SAT 91
[2023-11-29] MEDS: NORCO, ANEXSIA 5/325MG TABLET (HYDROcodone/ACETAMINOPHEN) PO PRN (01:13)
[2023-11-29] MEDS: AZITHROMYCIN INJ 500 MG, VIAL MATE ADAPTER 1 EACH in D5W 250 ML IV SCH (01:14)
[2023-11-29] MEDS: CEFEPIME HCL 2 GM in D5W MINI-BAG PLUS 50 ML IV SCH (02:54)
[2023-11-29] MEDS: VANCOMYCIN HCL 1,000 MG, VIAL MATE ADAPTER 1 EACH in D5W 250 ML IV ONE (03:42)
[2023-11-29 06:05] LABS: HEMATOCRIT 30.8 % (36.0-47.0); HEMOGLOBIN 10.1 g/dl (12.0-15.5); MEAN CORPUSCULAR HEMOGLOBIN 29.3 pg (27.0-33.0); MEAN CORPUSCULAR HGB CONC 32.8 g/dl (32.0-36.5); MEAN CORPUSCULAR VOLUME 89.3 fl (80.0-96.0); PLATELET COUNT, AUTOMATED 254 10^3/uL (150-450); RED BLOOD COUNT 3.45 10^6/uL (4.00-5.40); WHITE BLOOD COUNT 7.6 10^3/uL (4.0-10.0)
[2023-11-29 06:35] VITALS: BP 118/48; TEMP 98.2; O2SAT 93
[2023-11-29 06:36] LABS: ALBUMIN 2.3 G/DL (3.2-5.2); ALKALINE PHOSPHATASE 52 U/L (46-116); ALT/SGPT 13 U/L (7.0-40); AST/SGOT 13 U/L (<34); BILIRUBIN,TOTAL 0.4 MG/DL (0.3-1.2); BLOOD UREA NITROGEN 13 MG/DL (9-23); CALCIUM LEVEL 8.7 MG/DL (8.3-10.6); CARBON DIOXIDE LEVEL 26 MMOL/L (20-31); CHLORIDE LEVEL 99 MMOL/L (98-107); CREATININE FOR GFR 0.91 MG/DL (0.55-1.30); GLOMERULAR FILTRATION RATE > 60.0 (>39); GLUCOSE, FASTING 106 MG/DL (74-106); POTASSIUM SERUM 4.1 MMOL/L (3.5-5.1); SODIUM LEVEL 132 MMOL/L (136-145); TOTAL PROTEIN 5.7 G/DL (5.7-8.2)
[2023-11-29 09:17] LABS: VANCOMYCIN RANDOM 23.2 UG/ML
[2023-11-29] MEDS: ENOXAPARIN 40MG/0.4ML SYRINGE (J1650 PER 10MG) SC SCH (09:44)
[2023-11-29 10:00] VITALS: BP 133/59; TEMP 98.8; O2SAT 90
[2023-11-29] MEDS ORDERED: ALBUTEROL 90 MCG/ACT 8GM HFA INHALER INH PRN (11:25)
[2023-11-29] MEDS: clonazePAM 0.5 MG TAB PO SCH (13:23)
[2023-11-29] MEDS: MEMANTINE 5MG TABLET (NAMENDA) PO SCH (13:24)
[2023-11-29] MEDS: RANOLAZINE 500MG ER TAB PO SCH (13:24)
[2023-11-29] MEDS: PANTOPRAZOLE 40MG TAB (PROTONIX) PO SCH (13:24)
[2023-11-29 14:00] VITALS: BP 113/55; TEMP 98.1; O2SAT 92
[2023-11-29] MEDS ORDERED: VANCOMYCIN HCL 1,000 MG, VIAL MATE ADAPTER 1 EACH in D5W 250 ML IV SCH (14:00)
[2023-11-29] MEDS: NS 500 ML IV ONE (14:45)
[2023-11-29 18:00] VITALS: BP 136/59; TEMP 97.9; O2SAT 94
[2023-11-29] MEDS: AZITHROMYCIN 250MG TABLET PO SCH (20:30)
[2023-11-29] MEDS: ATORVASTATIN 20 MG TAB PO SCH (20:32)
[2023-11-29] MEDS: VALSARTAN 80 MG TAB (DIOVAN) PO SCH (20:32)
[2023-11-29] MEDS: ONDANSETRON 4MG 2ML VIAL IV PRN (20:58)
[2023-11-29 22:00] VITALS: BP 128/57; TEMP 99; O2SAT 94
[2023-11-30] VITALS (10 sets, daily range): BP systolic 100–135; BP diastolic 45–62; TEMP 97.5–98.6; O2SAT 91–96
[2023-11-30 08:32] LABS: BASO % 0.4 % (0.0-1.0); EOS # 0.3 10^3/uL (0.0-0.5); EOS % 3.5 % (0.0-3.0); HEMATOCRIT 30.8 % (36.0-47.0); LYMPH # 0.8 10^3/uL (1.5-5.0); MEAN CORPUSCULAR HEMOGLOBIN 29.2 pg (27.0-33.0); MEAN CORPUSCULAR HGB CONC 32.5 g/dl (32.0-36.5); MEAN CORPUSCULAR VOLUME 90.1 fl (80.0-96.0); MONO # 0.7 10^3/uL (0.0-0.8); MONO % 8.3 % (2.0-8.0); NEUTROPHILS # 6.5 10^3/uL (1.5-8.5); NEUTROPHILS % 77.2 % (36.0-66.0); PLATELET COUNT, AUTOMATED 263 10^3/uL (150-450); RED BLOOD COUNT 3.42 10^6/uL (4.00-5.40); WHITE BLOOD COUNT 8.4 10^3/uL (4.0-10.0)
[2023-11-30 08:53] LABS: CALCIUM LEVEL 8.8 MG/DL (8.3-10.6); CREATININE FOR GFR 1.05 MG/DL (0.55-1.30); GLOMERULAR FILTRATION RATE 54.8 (>39); POTASSIUM SERUM 4.7 MMOL/L (3.5-5.1)
[2023-11-30] MEDS: FLUoxetine 10 MG CAP PO SCH (09:35)
[2023-11-30] MEDS: FLUoxetine 20MG CAP PO SCH (09:38)
[2023-11-30] MEDS: TIOTROPIUM INHALER/CAPSULE (SPIRIVA) INH SCH (11:57)
[2023-11-30] MEDS: SODIUM CHLORIDE HYPERTONIC 3% 4ML NEB SOL INH ONE (12:03)
[2023-11-30] MEDS ORDERED: MIDAZOLAM INJ 2MG/2ML VIAL As Ordered ONE (12:11)
[2023-11-30] MEDS ORDERED: LIDOCAINE 2% 100MG/5ML SDV (FOR ANES.) As Ordered ONE (12:11)
[2023-11-30] MEDS ORDERED: fentaNYL 100 MCG/2 ML INJECTION As Ordered ONE (12:11)
[2023-11-30] MEDS ORDERED: ROCURONIUM BROMIDE 50MG/5ML VIAL As Ordered ONE (12:12)
[2023-11-30] MEDS ORDERED: SUGAMMADEX SODIUM 500 MG/5 ML VIAL (BRIDION) As Ordered ONE (12:12)
[2023-11-30] MEDS ORDERED: propofoL 200 MG/20 ML VIAL As Ordered ONE (12:12)
[2023-11-30] MEDS ORDERED: ONDANSETRON 4MG 2ML VIAL As Ordered ONE (12:23)
[2023-11-30] MEDS ORDERED: ISOVUE-300 61% 100ML VIAL As Ordered ONE (12:31)
[2023-11-30] MEDS ORDERED: THROMBIN 5,000 UNITS VIAL As Ordered ONE (12:31)
[2023-11-30] MEDS: CEFEPIME 1GM VIAL (MAXIPIME) As Ordered ONE (13:30)
[2023-11-30] MEDS ORDERED: ePHEDrine SULFATE 25 MG/5 ML(5MG/ML) SYRINGE As Ordered ONE (13:41)
[2023-11-30] MEDS ORDERED: PHENYLephrine 500MCG 5ML (100MCG/ML) SYRINGE As Ordered ONE (13:43)
[2023-11-30] MEDS ORDERED: VASOPRESSIN INJ 20UNITS/ML 1ML VIAL As Ordered ONE (13:43)
[2023-11-30] MEDS: CETACAINE SPRAY 5GM As Ordered ONE (14:53)
[2023-11-30] MEDS: EPINEPHrine 1MG/10ML SYRINGE 1.5IN As Ordered ONE (15:00)
[2023-11-30] MEDS ORDERED: LR 1,000 ML IV SCH (15:45)
[2023-11-30] MEDS ORDERED: fentaNYL 100 MCG/2 ML INJECTION IV PRN (15:45)
[2023-11-30] MEDS ORDERED: ONDANSETRON 4MG 2ML VIAL IV PRN (15:45)
[2023-11-30] MEDS ORDERED: oxyCODONE 5MG TAB PO PRN (15:45)
[2023-12-01] VITALS (7 sets, daily range): BP systolic 107–136; BP diastolic 50–58; TEMP 97.7–98.1; O2SAT 84–94
[2023-12-01 06:33] LABS: BASO % 0.1 % (0.0-1.0); HEMATOCRIT 29.2 % (36.0-47.0); HEMOGLOBIN 9.5 g/dl (12.0-15.5); LYMPH # 0.5 10^3/uL (1.5-5.0); LYMPH % 4.7 % (24.0-44.0); MEAN CORPUSCULAR HEMOGLOBIN 29.7 pg (27.0-33.0); MEAN CORPUSCULAR HGB CONC 32.5 g/dl (32.0-36.5); MEAN CORPUSCULAR VOLUME 91.3 fl (80.0-96.0); MONO # 0.3 10^3/uL (0.0-0.8); MONO % 2.8 % (2.0-8.0); NEUTROPHILS # 9.8 10^3/uL (1.5-8.5); NEUTROPHILS % 91.7 % (36.0-66.0); PLATELET COUNT, AUTOMATED 237 10^3/uL (150-450); WHITE BLOOD COUNT 10.7 10^3/uL (4.0-10.0)
[2023-12-01 06:55] LABS: CALCIUM LEVEL 9.2 MG/DL (8.3-10.6); CREATININE FOR GFR 1.01 MG/DL (0.55-1.30); GLOMERULAR FILTRATION RATE 57.4 (>39); POTASSIUM SERUM 4.7 MMOL/L (3.5-5.1)
[2023-12-02] VITALS (7 sets, daily range): BP systolic 116–139; BP diastolic 48–67; TEMP 97.5–97.8; O2SAT 85–93
[2023-12-02 06:17] LABS: BASO % 0.3 % (0.0-1.0); EOS # 0.2 10^3/uL (0.0-0.5); EOS % 1.8 % (0.0-3.0); HEMATOCRIT 31.6 % (36.0-47.0); HEMOGLOBIN 10.3 g/dl (12.0-15.5); MEAN CORPUSCULAR HGB CONC 32.6 g/dl (32.0-36.5); MEAN CORPUSCULAR VOLUME 92.1 fl (80.0-96.0); MONO # 0.7 10^3/uL (0.0-0.8); MONO % 5.8 % (2.0-8.0); NEUTROPHILS % 83.7 % (36.0-66.0); RED BLOOD COUNT 3.43 10^6/uL (4.00-5.40); WHITE BLOOD COUNT 11.9 10^3/uL (4.0-10.0)
[2023-12-02 06:18] LABS: PLATELET COUNT, AUTOMATED 340 10^3/uL (150-450)
[2023-12-02 06:36] LABS: CREATININE FOR GFR 1.09 MG/DL (0.55-1.30); GLOMERULAR FILTRATION RATE 52.5 (>39); POTASSIUM SERUM 4.7 MMOL/L (3.5-5.1)
[2023-12-02] MEDS: IPRATROPIUM 0.5MG/ALBUTEROL 2.5MG INH SOL UD 3ML (DUONEB) NEB PRN (12:12)
[2023-12-02] MEDS: predniSONE 20 MG TAB PO SCH (14:43)
[2023-12-03 06:00] VITALS: BP 127/63; TEMP 97.9; O2SAT 98
[2023-12-03 14:00] VITALS: BP 130/60; TEMP 97.9; O2SAT 95
[2023-12-03 19:45] VITALS: BP 146/67; TEMP 97.9; O2SAT 93
[2023-12-03] MEDS: CEFDINIR 300 MG CAP (OMNICEF) PO SCH (20:05)
[2023-12-03 20:06] VITALS: BP 146/67
[2023-12-04] VITALS: BP 142/75; TEMP 97.7; O2SAT 93
[2023-12-04 06:39] VITALS: BP 146/68; TEMP 97.5; O2SAT 90
[2023-12-04] MEDS ORDERED: ANOR1AER PO (06:46)
[2023-12-04] MEDS ORDERED: PRED10TA2 PO (06:46)
[2023-12-04 14:00] VITALS: TEMP 97.9; O2SAT 94
[2023-12-04 16:08] LABS: BODY FLUID CULTURE Not indicated. (.); LEGIONELLA ANTIGEN URINE Negative (Negative); ORGANISM ID Not indicated. (.); SPECIMEN SOURCE Urine (.); URINE STREP PNEUMONIAE ANTIGEN Negative (Negative)
== END 2023-12-04 15:00 | DRG 167 ==
LOC: M ED 17:46 → M ED INP 23:25 → ENRESERV 23:59 → M MSPAV 11-29 00:35
PROVIDERS: ADMIT Internal Medicine; ATTEND Internal Medicine
PROC: 0TC68ZZ Extirpation of Matter from Right Ureter, Via Natural or Artificial Opening Endoscopic (ICD-10-PCS; 2023-11-30)
PROC: 0TB08ZX Excision of Right Kidney, Via Natural or Artificial Opening Endoscopic, Diagnostic (ICD-10-PCS; 2023-11-30)
PROC: 0BB58ZX Excision of Right Middle Lobe Bronchus, Via Natural or Artificial Opening Endoscopic, Diagnostic (ICD-10-PCS; 2023-11-30)
PROC: 0BBD8ZX Excision of Right Middle Lung Lobe, Via Natural or Artificial Opening Endoscopic, Diagnostic (ICD-10-PCS; principal; 2023-11-30 15:00)
PROC: 0T768DZ Dilation of Right Ureter with Intraluminal Device, Via Natural or Artificial Opening Endoscopic (ICD-10-PCS; 2023-11-30 15:00)
PROC: 07B74ZX Excision of Thorax Lymphatic, Percutaneous Endoscopic Approach, Diagnostic (ICD-10-PCS; 2023-11-30 15:00)
DX: J18.9 Pneumonia, unspecified organism (principal); N13.30 Unspecified hydronephrosis; E87.1 Hypo-osmolality and hyponatremia; J96.11 Chronic respiratory failure with hypoxia; C64.1 Malignant neoplasm of right kidney, except renal pelvis; J44.1 Chronic obstructive pulmonary disease with (acute) exacerbation; J44.0 Chronic obstructive pulmonary disease with (acute) lower respiratory infection; N13.4 Hydroureter; J98.11 Atelectasis; C34.31 Malignant neoplasm of lower lobe, right bronchus or lung; I25.10 Atherosclerotic heart disease of native coronary artery without angina pectoris; E78.5 Hyperlipidemia, unspecified; I12.9 Hypertensive chronic kidney disease with stage 1 through stage 4 chronic kidney disease, or unspecified chronic kidney disease; F41.9 Anxiety disorder, unspecified; R54 Age-related physical debility; R31.0 Gross hematuria; N18.9 Chronic kidney disease, unspecified; K21.9 Gastro-esophageal reflux disease without esophagitis; F03.A0 Unspecified dementia, mild, without behavioral disturbance, psychotic disturbance, mood disturbance, and anxiety; F32.A Depression, unspecified; I25.2 Old myocardial infarction; R63.0 Anorexia; Z99.81 Dependence on supplemental oxygen; Z87.891 Personal history of nicotine dependence; Z79.899 Other long term (current) drug therapy; Z95.5 Presence of coronary angioplasty implant and graft; Z88.0 Allergy status to penicillin; Z91.013 Allergy to seafood; Z91.041 Radiographic dye allergy status

== ENCOUNTER 2023-12-04 13:18 | Inpatient (IN) | payer MEDICARE, BC ==
[~2023-12-04] VITALS: Ht 154.9 cm; Wt 59.9 kg
[~2023-12-04 13:18] MED LIST changes: +ACET-897 PO; +ALBU8.5H INH; +ANOR1AER PO; +NITR4TASL SL; +ONDA-195 PO; +PRED10TA2 PO; +RANO500T2 PO
[2023-12-04] MEDS ORDERED: ALBUTEROL 90 MCG/ACT 8GM HFA INHALER INH PRN (14:30)
[2023-12-04] MEDS ORDERED: NITROGLYCERIN 0.4MG SUBL TABLET SL PRN (14:30)
[2023-12-04 15:10] VITALS: BP 153/70; TEMP 98; O2SAT 91
[2023-12-04] MEDS: ACETAMINOPHEN 500 MG TAB PO PRN (19:23)
[2023-12-04 20:40] VITALS: BP 157/70; TEMP 97.9; O2SAT 91
[2023-12-04] MEDS: clonazePAM 0.5 MG TAB PO SCH (20:41)
[2023-12-04] MEDS: VALSARTAN 80 MG TAB (DIOVAN) PO SCH (20:41)
[2023-12-04] MEDS: ATORVASTATIN 20 MG TAB PO SCH (20:41)
[2023-12-04] MEDS: RANOLAZINE 500MG ER TAB PO SCH (20:41)
[2023-12-04] MEDS: MEMANTINE 5MG TABLET (NAMENDA) PO SCH (20:41)
[2023-12-04] MEDS: NORCO, ANEXSIA 5/325MG TABLET (HYDROcodone/ACETAMINOPHEN) PO PRN (20:42)
[2023-12-04] MEDS: ONDANSETRON 4MG TAB PO PRN (20:47)
[2023-12-05 06:20] VITALS: BP 130/61; TEMP 98; O2SAT 90
[2023-12-05 06:56] LABS: HEMATOCRIT 36.5 % (36.0-47.0); MEAN CORPUSCULAR HEMOGLOBIN 29.6 pg (27.0-33.0); MEAN CORPUSCULAR HGB CONC 32.9 g/dl (32.0-36.5); MEAN CORPUSCULAR VOLUME 89.9 fl (80.0-96.0); PLATELET COUNT, AUTOMATED 394 10^3/uL (150-450); RED BLOOD COUNT 4.06 10^6/uL (4.00-5.40); WHITE BLOOD COUNT 13.8 10^3/uL (4.0-10.0)
[2023-12-05 07:26] LABS: BLOOD UREA NITROGEN 25 MG/DL (9-23); CALCIUM LEVEL 9.5 MG/DL (8.3-10.6); CARBON DIOXIDE LEVEL 26 MMOL/L (20-31); CHLORIDE LEVEL 102 MMOL/L (98-107); GLOMERULAR FILTRATION RATE > 60.0 (>39); GLUCOSE, FASTING 85 MG/DL (74-106); POTASSIUM SERUM 4.7 MMOL/L (3.5-5.1); SODIUM LEVEL 135 MMOL/L (136-145)
[2023-12-05] MEDS: TIOTROPIUM INHALER/CAPSULE (SPIRIVA) INH SCH (07:44)
[2023-12-05] MEDS: PANTOPRAZOLE 40MG TAB (PROTONIX) PO SCH (08:26)
[2023-12-05] MEDS: FLUoxetine 10 MG CAP PO SCH (08:26)
[2023-12-05] MEDS: FLUoxetine 20MG CAP PO SCH (08:26)
[2023-12-05] MEDS: predniSONE 10MG TAB PO SCH (08:27)
[2023-12-05 11:00] VITALS: O2SAT 92
[2023-12-05 13:32] VITALS: O2SAT 91
[2023-12-05 14:00] VITALS: BP 112/68; TEMP 98; O2SAT 91
[2023-12-05] MEDS: ENOXAPARIN 40MG/0.4ML SYRINGE (J1650 PER 10MG) SC SCH (14:44)
[2023-12-05] MEDS: oxyBUTYnin 5 MG TAB PO PRN (16:18)
[2023-12-05] MEDS: FORMOTEROL FUMARATE 20 MCG/2 ML INHALATION SOLUTION (PERFOROMIST) INH SCH (19:51)
[2023-12-05 20:00] VITALS: BP_SYST 110; BP_SYST 127; BP_DIAS 59; BP_DIAS 67; TEMP 98.2; O2SAT 91
[2023-12-06 06:00] VITALS: BP 130/63; TEMP 98.4; O2SAT 90
[2023-12-06 07:24] LABS: ALBUMIN 2.3 G/DL (3.2-5.2); ALKALINE PHOSPHATASE 46 U/L (46-116); ALT/SGPT 17 U/L (7.0-40); AST/SGOT 13 U/L (<34); BILIRUBIN,TOTAL 0.2 MG/DL (0.3-1.2); BLOOD UREA NITROGEN 27 MG/DL (9-23); CALCIUM LEVEL 9.4 MG/DL (8.3-10.6); CARBON DIOXIDE LEVEL 28 MMOL/L (20-31); CHLORIDE LEVEL 100 MMOL/L (98-107); CREATININE FOR GFR 0.93 MG/DL (0.55-1.30); GLOMERULAR FILTRATION RATE > 60.0 (>39); GLUCOSE, FASTING 86 MG/DL (74-106); POTASSIUM SERUM 4.3 MMOL/L (3.5-5.1); SODIUM LEVEL 133 MMOL/L (136-145)
[2023-12-06 07:28] LABS: THYROID STIMULATING HORMONE 0.378 uIU/ML (0.55-4.78); TOTAL 25(OH) VITAMIN D 22.5 NG/ML (20.0-100.0); VITAMIN B12 LEVEL 672 PG/ML (211-911)
[2023-12-06 14:00] VITALS: BP 129/62; TEMP 97.2; O2SAT 94
[2023-12-06] MEDS: FOLIC ACID 1MG TAB PO SCH (15:41)
[2023-12-06] MEDS: CYANOCOBALAMIN 500 MCG TAB PO SCH (15:41)
[2023-12-06] MEDS ORDERED: RAMELTEON 8 MG TAB (ROZEREM) PO PRN (17:00)
[2023-12-06 20:00] VITALS: BP 143/66; TEMP 97.9; O2SAT 91
[2023-12-07 06:00] VITALS: BP 128/68; TEMP 97.7; O2SAT 91
[2023-12-07 07:02] LABS: HEMATOCRIT 32.5 % (36.0-47.0); HEMOGLOBIN 10.5 g/dl (12.0-15.5); MEAN CORPUSCULAR HEMOGLOBIN 29.1 pg (27.0-33.0); MEAN CORPUSCULAR HGB CONC 32.3 g/dl (32.0-36.5); PLATELET COUNT, AUTOMATED 361 10^3/uL (150-450); RED BLOOD COUNT 3.61 10^6/uL (4.00-5.40); WHITE BLOOD COUNT 14.4 10^3/uL (4.0-10.0)
[2023-12-07 07:22] LABS: BLOOD UREA NITROGEN 32 MG/DL (9-23); CALCIUM LEVEL 9.5 MG/DL (8.3-10.6); CARBON DIOXIDE LEVEL 27 MMOL/L (20-31); CHLORIDE LEVEL 100 MMOL/L (98-107); CREATININE FOR GFR 0.89 MG/DL (0.55-1.30); GLOMERULAR FILTRATION RATE > 60.0 (>39); GLUCOSE, FASTING 97 MG/DL (74-106); POTASSIUM SERUM 4.5 MMOL/L (3.5-5.1); SODIUM LEVEL 132 MMOL/L (136-145)
[2023-12-07 07:24] LABS: FREE T3 2.5 PG/ML (2.3-4.2); FREE T4 1.06 NG/DL (0.89-1.76)
[2023-12-07 14:00] VITALS: BP 157/72; TEMP 98.1; O2SAT 90
[2023-12-07] MEDS ORDERED: SENNA 8.6 MG TAB (SENOKOT) PO PRN (17:20)
[2023-12-07 20:00] VITALS: BP 129/67; TEMP 97.7; O2SAT 89
[2023-12-07] MEDS: NORCO, ANEXSIA 5/325MG TABLET (HYDROcodone/ACETAMINOPHEN) PO PRN (20:38)
[2023-12-08] MEDS: ONDANSETRON 4MG TAB PO PRN (05:50)
[2023-12-08 06:00] VITALS: BP 133/61; TEMP 97.2; O2SAT 90
[2023-12-08 07:04] LABS: HEMATOCRIT 33.2 % (36.0-47.0); HEMOGLOBIN 10.9 g/dl (12.0-15.5); MEAN CORPUSCULAR HEMOGLOBIN 29.5 pg (27.0-33.0); MEAN CORPUSCULAR HGB CONC 32.8 g/dl (32.0-36.5); MEAN CORPUSCULAR VOLUME 89.7 fl (80.0-96.0); PLATELET COUNT, AUTOMATED 374 10^3/uL (150-450); WHITE BLOOD COUNT 14.3 10^3/uL (4.0-10.0)
[2023-12-08 07:38] LABS: BLOOD UREA NITROGEN 30 MG/DL (9-23); CALCIUM LEVEL 9.6 MG/DL (8.3-10.6); CARBON DIOXIDE LEVEL 28 MMOL/L (20-31); CHLORIDE LEVEL 99 MMOL/L (98-107); CREATININE FOR GFR 0.87 MG/DL (0.55-1.30); GLOMERULAR FILTRATION RATE > 60.0 (>39); GLUCOSE, FASTING 98 MG/DL (74-106); POTASSIUM SERUM 4.7 MMOL/L (3.5-5.1); SODIUM LEVEL 132 MMOL/L (136-145)
[2023-12-08] MEDS ORDERED: predniSONE 10MG TAB PO SCH (09:00)
[2023-12-08 14:00] VITALS: BP_SYST 157; BP_SYST 160; BP_DIAS 69; BP_DIAS 70; TEMP 97; O2SAT 96
[2023-12-08] MEDS: LIDOCAINE 5% (LIDODERM) PATCH TD SCH (16:44)
[2023-12-08 20:00] VITALS: BP 155/68; TEMP 98.2; O2SAT 91
[2023-12-08] MEDS: RAMELTEON 8 MG TAB (ROZEREM) PO SCH (20:25)
[2023-12-09 06:00] VITALS: BP 125/60; TEMP 98.1; O2SAT 91
[2023-12-09 07:58] LABS: BLOOD UREA NITROGEN 29 MG/DL (9-23); CALCIUM LEVEL 9.8 MG/DL (8.3-10.6); CARBON DIOXIDE LEVEL 31 MMOL/L (20-31); CHLORIDE LEVEL 99 MMOL/L (98-107); CREATININE FOR GFR 0.94 MG/DL (0.55-1.30); GLOMERULAR FILTRATION RATE > 60.0 (>39); GLUCOSE, FASTING 91 MG/DL (74-106); POTASSIUM SERUM 5.1 MMOL/L (3.5-5.1); SODIUM LEVEL 134 MMOL/L (136-145)
[2023-12-09 14:00] VITALS: TEMP 98.2; O2SAT 95
[2023-12-09 20:00] VITALS: BP 132/63; TEMP 98.1; O2SAT 93
[2023-12-10 06:00] VITALS: BP 135/62; TEMP 97.9; O2SAT 92
[2023-12-10 08:00] LABS: BLOOD UREA NITROGEN 29 MG/DL (9-23); CARBON DIOXIDE LEVEL 28 MMOL/L (20-31); CHLORIDE LEVEL 98 MMOL/L (98-107); CREATININE FOR GFR 0.87 MG/DL (0.55-1.30); GLOMERULAR FILTRATION RATE > 60.0 (>39); GLUCOSE, FASTING 111 MG/DL (74-106); POTASSIUM SERUM 4.4 MMOL/L (3.5-5.1); SODIUM LEVEL 131 MMOL/L (136-145)
[2023-12-10 14:00] VITALS: BP 128/60; TEMP 98.1; O2SAT 94
[2023-12-10 20:00] VITALS: BP 133/60; TEMP 98; O2SAT 95
[2023-12-11 06:00] VITALS: BP 131/62; TEMP 98.1; O2SAT 92
[2023-12-11 06:33] LABS: HEMATOCRIT 32.6 % (36.0-47.0); HEMOGLOBIN 10.7 g/dl (12.0-15.5); MEAN CORPUSCULAR HEMOGLOBIN 29.5 pg (27.0-33.0); MEAN CORPUSCULAR HGB CONC 32.8 g/dl (32.0-36.5); MEAN CORPUSCULAR VOLUME 89.8 fl (80.0-96.0); PLATELET COUNT, AUTOMATED 352 10^3/uL (150-450); RED BLOOD COUNT 3.63 10^6/uL (4.00-5.40); WHITE BLOOD COUNT 13.5 10^3/uL (4.0-10.0)
[2023-12-11 07:12] LABS: BLOOD UREA NITROGEN 30 MG/DL (9-23); CALCIUM LEVEL 8.8 MG/DL (8.3-10.6); CARBON DIOXIDE LEVEL 28 MMOL/L (20-31); CHLORIDE LEVEL 100 MMOL/L (98-107); CREATININE FOR GFR 0.93 MG/DL (0.55-1.30); GLOMERULAR FILTRATION RATE > 60.0 (>39); GLUCOSE, FASTING 120 MG/DL (74-106); POTASSIUM SERUM 5.1 MMOL/L (3.5-5.1); SODIUM LEVEL 132 MMOL/L (136-145)
[2023-12-11] MEDS ORDERED: predniSONE 20 MG TAB PO SCH (09:00)
[2023-12-11] MEDS ORDERED: SENO8.6T5 PO (13:54)
[2023-12-11] MEDS ORDERED: ANOR1AER PO (13:54)
[2023-12-11] MEDS ORDERED: VITA500T40 PO (13:54)
[2023-12-11] MEDS ORDERED: PRED10TA2 PO (13:54)
[2023-12-11] MEDS ORDERED: ONDA-83 PO (13:54)
[2023-12-11] MEDS ORDERED: HYDR-3715 PO (13:54)
[2023-12-11] MEDS ORDERED: FOLI1TAB11 PO (13:54)
[2023-12-11] MEDS ORDERED: OXYB5TAB14 PO (13:54)
[2023-12-11 14:00] VITALS: BP 116/62; TEMP 98.2; O2SAT 90
[2023-12-11 20:05] VITALS: BP 157/67; TEMP 97.3; O2SAT 92
[2023-12-11 20:09] VITALS: BP 157/67
[2023-12-11] MEDS: clonazePAM 1 MG TAB PO SCH (20:09)
[2023-12-12 06:10] VITALS: BP 118/57; TEMP 97.2; O2SAT 91
[2023-12-12] MEDS: clonazePAM 0.5 MG TAB PO SCH (08:15)
[2023-12-14] MEDS ORDERED: predniSONE 10MG TAB PO SCH (09:00)
[2023-12-18] MEDS ORDERED: HYDR-3715 PO (16:24)
== END 2023-12-12 11:43 | disposition home health service (06) | DRG 947 ==
LOC: M PM&R 15:10
PROVIDERS: ADMIT Student in an Organized Health Care Education/Training Program; ATTEND Student in an Organized Health Care Education/Training Program
DX: R53.81 Other malaise (principal); J18.9 Pneumonia, unspecified organism; C68.0 Malignant neoplasm of urethra; J44.1 Chronic obstructive pulmonary disease with (acute) exacerbation; E87.1 Hypo-osmolality and hyponatremia; C34.90 Malignant neoplasm of unspecified part of unspecified bronchus or lung; J44.0 Chronic obstructive pulmonary disease with (acute) lower respiratory infection; J96.11 Chronic respiratory failure with hypoxia; G89.3 Neoplasm related pain (acute) (chronic); F03.90 Unspecified dementia, unspecified severity, without behavioral disturbance, psychotic disturbance, mood disturbance, and anxiety; I25.10 Atherosclerotic heart disease of native coronary artery without angina pectoris; I12.9 Hypertensive chronic kidney disease with stage 1 through stage 4 chronic kidney disease, or unspecified chronic kidney disease; E78.5 Hyperlipidemia, unspecified; K21.9 Gastro-esophageal reflux disease without esophagitis; F39 Unspecified mood [affective] disorder; Z74.09 Other reduced mobility; Z74.1 Need for assistance with personal care; N32.89 Other specified disorders of bladder; N18.9 Chronic kidney disease, unspecified; G47.9 Sleep disorder, unspecified; R53.83 Other fatigue; Z99.81 Dependence on supplemental oxygen; Z87.891 Personal history of nicotine dependence; Z95.5 Presence of coronary angioplasty implant and graft; Z80.52 Family history of malignant neoplasm of bladder; Z80.49 Family history of malignant neoplasm of other genital organs; Z79.52 Long term (current) use of systemic steroids; Z79.899 Other long term (current) drug therapy; Z88.0 Allergy status to penicillin; Z91.013 Allergy to seafood; Z91.041 Radiographic dye allergy status; Z80.1 Family history of malignant neoplasm of trachea, bronchus and lung; Z80.0 Family history of malignant neoplasm of digestive organs

== ENCOUNTER → 2023-12-18 | Outpatient (CLI) | payer MEDICARE, BC ==
[~2023-12-18] VITALS: Ht 154.9 cm; Wt 60.9 kg
[~2023-12-18] MED LIST changes: +FOLI1TAB11 PO; +HYDR-3715 PO; +OXYB5TAB14 PO; +SENO8.6T5 PO; +VITA500T40 PO
[2023-12-18 14:35] VITALS: BP 134/66; O2SAT 92
== END ==
LOC: M PAL 14:14
PROVIDERS: ATTEND Nurse Practitioner Adult Health
DX: C68.0 Malignant neoplasm of urethra (principal); C34.90 Malignant neoplasm of unspecified part of unspecified bronchus or lung; G89.3 Neoplasm related pain (acute) (chronic); J44.9 Chronic obstructive pulmonary disease, unspecified; R53.81 Other malaise; I12.9 Hypertensive chronic kidney disease with stage 1 through stage 4 chronic kidney disease, or unspecified chronic kidney disease; Z51.5 Encounter for palliative care; Z74.09 Other reduced mobility; Z74.1 Need for assistance with personal care; F41.9 Anxiety disorder, unspecified; M54.50 Low back pain, unspecified; R10.11 Right upper quadrant pain; R11.0 Nausea; R06.02 Shortness of breath; F03.90 Unspecified dementia, unspecified severity, without behavioral disturbance, psychotic disturbance, mood disturbance, and anxiety; E78.5 Hyperlipidemia, unspecified; K21.9 Gastro-esophageal reflux disease without esophagitis; I25.10 Atherosclerotic heart disease of native coronary artery without angina pectoris; Z80.0 Family history of malignant neoplasm of digestive organs; F39 Unspecified mood [affective] disorder; Z80.1 Family history of malignant neoplasm of trachea, bronchus and lung; Z91.041 Radiographic dye allergy status; Z91.013 Allergy to seafood; Z88.0 Allergy status to penicillin; Z79.899 Other long term (current) drug therapy; Z80.52 Family history of malignant neoplasm of bladder; Z79.52 Long term (current) use of systemic steroids; Z80.49 Family history of malignant neoplasm of other genital organs; Z95.5 Presence of coronary angioplasty implant and graft; Z99.81 Dependence on supplemental oxygen; Z87.891 Personal history of nicotine dependence

== ENCOUNTER → 2024-01-11 | Outpatient (CLI) | payer MEDICARE, BC ==
[~2024-01-11] MED LIST changes: +MEMA10TA PO; -MEMA10TA19 PO
== END ==
LOC: M PLARAD 09:53
PROVIDERS: ATTEND Internal Medicine Hematology & Oncology
DX: C34.90 Malignant neoplasm of unspecified part of unspecified bronchus or lung (principal)

== ENCOUNTER → 2024-01-18 | Outpatient (CLI) | payer MEDICARE, BC ==
[~2024-01-18] VITALS: Ht 154.9 cm; Wt 57.9 kg
[~2024-01-18] MED LIST changes: +CARA1TAB6 PO; +FENT12DI8 TOP
[2024-01-18 11:34] VITALS: BP 126/76; O2SAT 90
== END ==
LOC: M PAL 11:23
PROVIDERS: ATTEND Nurse Practitioner Adult Health
DX: G89.3 Neoplasm related pain (acute) (chronic) (principal); C68.0 Malignant neoplasm of urethra; C34.90 Malignant neoplasm of unspecified part of unspecified bronchus or lung; C64.9 Malignant neoplasm of unspecified kidney, except renal pelvis; I25.10 Atherosclerotic heart disease of native coronary artery without angina pectoris; J44.9 Chronic obstructive pulmonary disease, unspecified; Z51.5 Encounter for palliative care; F39 Unspecified mood [affective] disorder; R11.0 Nausea; K21.9 Gastro-esophageal reflux disease without esophagitis; M54.50 Low back pain, unspecified; F03.90 Unspecified dementia, unspecified severity, without behavioral disturbance, psychotic disturbance, mood disturbance, and anxiety; R10.11 Right upper quadrant pain; Z79.891 Long term (current) use of opiate analgesic; Z79.899 Other long term (current) drug therapy; Z80.0 Family history of malignant neoplasm of digestive organs; Z80.1 Family history of malignant neoplasm of trachea, bronchus and lung; Z80.52 Family history of malignant neoplasm of bladder; Z91.041 Radiographic dye allergy status; Z91.013 Allergy to seafood; Z88.0 Allergy status to penicillin; Z87.891 Personal history of nicotine dependence; Z95.5 Presence of coronary angioplasty implant and graft

== ENCOUNTER → 2024-01-22 | Outpatient (CLI) | payer MEDICARE, BC ==
[~2024-01-22] MED LIST changes: +FLUO-290 PO; -FLUO10CA18 PO
== END ==
LOC: M PLARAD 13:57
PROVIDERS: ATTEND Internal Medicine Hematology & Oncology
DX: C64.1 Malignant neoplasm of right kidney, except renal pelvis (principal)